=== PATIENT | male | born 1945 | race Caucasian/White ===

== ENCOUNTER → 2020-11-15 04:00 | Outpatient (REF) | payer MEDICARE, MEDICAID, SELFPAY ==
[2020-11-15 08:33] LABS: T3 Uptake 35 % (33-40); T4 Total, Thyroxin 9.9 ug/dL (4.5-12.1); T7 / Free Thyroxin Index 3.5 (1.4-4.5); Thyroid Stim Hormone (TSH) 2.85 uIU/mL (0.358-3.74)
[2020-11-16 09:57] LABS: Anion Gap 7 (5-15); BUN 13 mg/dL (7-18); BUN/Creat Ratio 9.5 RATIO (10-20); Calcium,Total 8.8 mg/dL (8.5-10.1); Chloride 106 mmol/L (98-107); Creatinine, Serum 1.37 mg/dL (0.70-1.30); EST Glomerular Filtration Rate 54 mL/min (>60); Est Glom Filt Rate - Afr Amer 65 mL/min (>60); Glucose 78 mg/dL (74-106); Potassium 4.1 mmol/L (3.5-5.1); Sodium Level 140 mmol/L (136-145)
== END ==
LOC: OLS.SANC 04:00
PROVIDERS: Visit Provider Internal Medicine
DX: E03.9 Hypothyroidism, unspecified (principal)
CPT/HCPCS: 36415; 80048; 84436; 84443; 84479

== ENCOUNTER → 2020-11-26 05:00 | Outpatient (REF) | payer MEDICARE, MEDICAID, SELFPAY ==
[2020-11-26 08:16] LABS: Hematocrit 35.4 % (40-54); Hemoglobin 11.2 g/dL (13.0-16.5); Mean Corp Hgb Conc 31.6 g/dL (32-36); Mean Corpuscular Hgb 31.1 pg (27.0-32.0); Mean Corpuscular Volume 98.3 fL (80-94); Mean Platelet Vol. 10.1 fl (6.2-12.0); Platelet Count 208 K/mm3 (150-450); RBC Distribution Width CV 12.7 % (11.6-14.6); RBC Distribution Width SD 45.9 fl (35.1-43.9); White Blood Count 5.2 K/mm3 (4.4-11.0)
[2020-11-26 08:25] LABS: Anion Gap 3 (5-15); BUN 23 mg/dL (7-18); BUN/Creat Ratio 17.7 RATIO (10-20); Chloride 106 mmol/L (98-107); EST Glomerular Filtration Rate 57 mL/min (>60); Est Glom Filt Rate - Afr Amer 69 mL/min (>60); Glucose 87 mg/dL (74-106); Potassium 4.4 mmol/L (3.5-5.1); Sodium Level 138 mmol/L (136-145)
== END ==
LOC: OLS.SANC 05:00
PROVIDERS: Visit Provider Internal Medicine
DX: I50.9 Heart failure, unspecified (principal); M62.81 Muscle weakness (generalized)
CPT/HCPCS: 36415; 80048; 85027

== ENCOUNTER → 2021-02-16 05:00 | Outpatient (REF) | payer MEDICARE, MEDICAID, SELFPAY ==
[2021-02-16 09:02] LABS: Hematocrit 33.5 % (40-54); Hemoglobin 10.7 g/dL (13.0-16.5); Mean Corp Hgb Conc 31.9 g/dL (32-36); Mean Corpuscular Hgb 30.8 pg (27.0-32.0); Mean Corpuscular Volume 96.5 fL (80-94); Mean Platelet Vol. 10.2 fl (6.2-12.0); Platelet Count 176 K/mm3 (150-450); RBC Distribution Width CV 12.9 % (11.6-14.6); RBC Distribution Width SD 45.7 fl (35.1-43.9); Red Blood Count 3.47 M/mm3 (4.6-6.2); White Blood Count 5.1 K/mm3 (4.4-11.0)
[2021-02-16 09:10] LABS: Anion Gap 7 (5-15); BUN 24 mg/dL (7-18); BUN/Creat Ratio 16.4 RATIO (10-20); Calcium,Total 9.1 mg/dL (8.5-10.1); Chloride 103 mmol/L (98-107); Creatinine, Serum 1.46 mg/dL (0.70-1.30); EST Glomerular Filtration Rate 50 mL/min (>60); Est Glom Filt Rate - Afr Amer 60 mL/min (>60); Glucose 90 mg/dL (74-106); Potassium 4.7 mmol/L (3.5-5.1); Sodium Level 139 mmol/L (136-145)
== END ==
LOC: OLS.SANC 05:00
PROVIDERS: Visit Provider Internal Medicine
DX: I10 Essential (primary) hypertension (principal); E03.9 Hypothyroidism, unspecified
CPT/HCPCS: 36415; 80048; 85027

== ENCOUNTER 2021-04-13 04:00 | Outpatient (REF) | payer MEDICARE, MEDICAID, SELFPAY ==
[2021-04-13 09:50] LABS: Magnesium 1.8 mg/dL (1.6-2.6)
== END 2021-04-13 23:59 | disposition home or self-care (01) ==
LOC: OLS.SANC 04:00
PROVIDERS: Referring Provider Internal Medicine; Visit Provider Internal Medicine
DX: E61.2 Magnesium deficiency (principal)
CPT/HCPCS: 36415; 83735

== ENCOUNTER → 2021-07-29 | Outpatient (REF) | payer MEDICARE, MEDICAID, SELFPAY ==
[2021-07-29 09:42] LABS: Anion Gap 4 (5-15); BUN 24 mg/dL (7-18); BUN/Creat Ratio 15.1 RATIO (10-20); Calcium,Total 8.8 mg/dL (8.5-10.1); Chloride 104 mmol/L (98-107); Creatinine, Serum 1.59 mg/dL (0.70-1.30); EST Glomerular Filtration Rate 45 mL/min (>60); Est Glom Filt Rate - Afr Amer 55 mL/min (>60); Glucose 98 mg/dL (74-106); Potassium 4.5 mmol/L (3.5-5.1); Sodium Level 138 mmol/L (136-145)
== END | disposition home or self-care (01) ==
LOC: OLS.SANC 05:00
PROVIDERS: Visit Provider Internal Medicine
DX: I10 Essential (primary) hypertension (principal); E03.9 Hypothyroidism, unspecified
CPT/HCPCS: 36415; 80048

== ENCOUNTER → 2021-08-12 | Outpatient (REF) | payer MEDICARE, MEDICAID, SELFPAY ==
[2021-08-12 08:58] LABS: Hemoglobin 11.1 g/dL (13.0-16.5); Mean Corp Hgb Conc 32.6 g/dL (32-36); Mean Corpuscular Hgb 31.5 pg (27.0-32.0); Mean Corpuscular Volume 96.6 fL (80-94); Platelet Count 205 K/mm3 (150-450); RBC Distribution Width CV 13.1 % (11.6-14.6); RBC Distribution Width SD 46.3 fl (35.1-43.9); Red Blood Count 3.52 M/mm3 (4.6-6.2); White Blood Count 4.6 K/mm3 (4.4-11.0)
[2021-08-12 09:10] LABS: Anion Gap 6 (5-15); BUN 20 mg/dL (7-18); BUN/Creat Ratio 16.1 RATIO (10-20); Calcium,Total 8.7 mg/dL (8.5-10.1); Chloride 101 mmol/L (98-107); Creatinine, Serum 1.24 mg/dL (0.70-1.30); EST Glomerular Filtration Rate 60 mL/min (>60); Est Glom Filt Rate - Afr Amer 73 mL/min (>60); Glucose 80 mg/dL (74-106); Potassium 4.2 mmol/L (3.5-5.1); Sodium Level 136 mmol/L (136-145)
[2021-08-12 09:15] LABS: Vitamin B12 274 pg/mL (211-911); Vitamin D,25 Hydroxy 13.3 ng/mL
== END | disposition home or self-care (01) ==
LOC: OLS.SANC 05:00
PROVIDERS: Visit Provider Internal Medicine
DX: I10 Essential (primary) hypertension (principal); E03.9 Hypothyroidism, unspecified
CPT/HCPCS: 36415; 80048; 82306; 82607; 85027

== ENCOUNTER → 2021-12-30 | Outpatient (REF) | payer MEDICARE, MEDICAID, SELFPAY ==
[2021-12-30 09:18] LABS: Anion Gap 6 (5-15); BUN 20 mg/dL (7-18); BUN/Creat Ratio 13.1 RATIO (10-20); Calcium,Total 8.9 mg/dL (8.5-10.1); Chloride 99 mmol/L (98-107); Creatinine, Serum 1.53 mg/dL (0.70-1.30); EST Glomerular Filtration Rate 47 mL/min (>60); Est Glom Filt Rate - Afr Amer 57 mL/min (>60); Glucose 88 mg/dL (74-106); Potassium 4.2 mmol/L (3.5-5.1); Sodium Level 137 mmol/L (136-145)
== END ==
LOC: OLS.SANC 05:00
PROVIDERS: Visit Provider Internal Medicine
DX: E78.5 Hyperlipidemia, unspecified (principal); D64.9 Anemia, unspecified
CPT/HCPCS: 36415; 80048

== ENCOUNTER → 2022-01-02 | Outpatient (REF) | payer MEDICARE, MEDICAID, SELFPAY ==
[2022-01-02 09:57] LABS: Vitamin D,25 Hydroxy 72.6 ng/mL
== END ==
LOC: OLS.SANC 04:00
PROVIDERS: Referring Provider Internal Medicine; Visit Provider Internal Medicine
DX: E55.9 Vitamin D deficiency, unspecified (principal); Z79.899 Other long term (current) drug therapy
CPT/HCPCS: 36415; 82306

== ENCOUNTER → 2022-01-03 | Outpatient (REF) | payer MEDICARE, MEDICAID, SELFPAY ==
[2022-01-03 09:57] LABS: Valproic Acid (Depakene) Level 18 ug/mL (50-100)
== END ==
LOC: OLS.SANC 05:00
PROVIDERS: Visit Provider Internal Medicine
DX: Z79.899 Other long term (current) drug therapy (principal)
CPT/HCPCS: 36415; 80164

== ENCOUNTER → 2022-01-18 | Outpatient (REF) | payer MEDICARE, MEDICAID, SELFPAY ==
[2022-01-18 07:54] LABS: Hematocrit 33.2 % (40-54); Hemoglobin 10.6 g/dL (13.0-16.5); Mean Corp Hgb Conc 31.9 g/dL (32-36); Mean Corpuscular Hgb 31.4 pg (27.0-32.0); Mean Corpuscular Volume 98.2 fL (80-94); Mean Platelet Vol. 10.1 fl (6.2-12.0); Platelet Count 183 K/mm3 (150-450); RBC Distribution Width CV 12.6 % (11.6-14.6); RBC Distribution Width SD 45.5 fl (35.1-43.9); Red Blood Count 3.38 M/mm3 (4.6-6.2); White Blood Count 4.3 K/mm3 (4.4-11.0)
[2022-01-18 08:35] LABS: Anion Gap 5 (5-15); BUN 24 mg/dL (7-18); Calcium,Total 9.2 mg/dL (8.5-10.1); Chloride 101 mmol/L (98-107); EST Glomerular Filtration Rate 45 mL/min (>60); Est Glom Filt Rate - Afr Amer 54 mL/min (>60); Glucose 84 mg/dL (74-106); Potassium 4.3 mmol/L (3.5-5.1); Sodium Level 137 mmol/L (136-145)
== END ==
LOC: OLS.SANC 05:00
PROVIDERS: Visit Provider Internal Medicine
DX: I50.9 Heart failure, unspecified (principal); D64.9 Anemia, unspecified
CPT/HCPCS: 36415; 80048; 85027

== ENCOUNTER → 2022-03-14 | Outpatient (REF) | payer MEDICARE, MEDICAID, SELFPAY ==
[2022-03-14 09:38] LABS: Thyroid Stim Hormone (TSH) 0.94 uIU/mL (0.358-3.74)
== END ==
LOC: OLS.SANC 05:00
PROVIDERS: Visit Provider Internal Medicine
DX: E03.9 Hypothyroidism, unspecified (principal)
CPT/HCPCS: 36415; 84443

== ENCOUNTER → 2022-06-13 | Outpatient (REF) | payer MEDICARE, MEDICAID, SELFPAY ==
[2022-06-13 09:25] LABS: AST(SGOT) 18 U/L (15-37); Alanine Aminotransfer ALT/SGPT 17 U/L (16-61); Albumin, Serum 3.1 g/dL (3.2-5.0); Alkaline Phosphatase 40 U/L (45-117); Bilirubin, Direct 0.09 mg/dL (0.00-0.30); Cholesterol 89 mg/dL (200); Globulin 3.1 g/dL (2.2-4.2); High Density Lipoprotein 35 mg/dL; Protein, Total 6.2 g/dL (6.4-8.2); Triglycerides 100 mg/dL; Very Low Density Lipoprotein 20 mg/dL (5-40)
== END ==
LOC: OLS.SANC 05:00
PROVIDERS: Visit Provider Internal Medicine
DX: D64.9 Anemia, unspecified (principal); I11.0 Hypertensive heart disease with heart failure; I50.9 Heart failure, unspecified; E78.5 Hyperlipidemia, unspecified
CPT/HCPCS: 36415; 80061; 80076

== ENCOUNTER → 2022-06-26 | Outpatient (REF) | payer MEDICARE, MEDICAID, SELFPAY ==
[2022-06-26 10:39] LABS: Valproic Acid (Depakene) Level 18 ug/mL (50-100)
== END ==
LOC: OLS.SANC 04:00
PROVIDERS: Referring Provider Internal Medicine; Visit Provider Internal Medicine
DX: Z79.899 Other long term (current) drug therapy (principal)
CPT/HCPCS: 36415; 80164

== ENCOUNTER → 2022-07-03 | Outpatient (REF) | payer MEDICARE, MEDICAID, SELFPAY ==
[2022-07-03 08:37] LABS: Prealbumin 19.9 mg/dL (20.0-40.0)
== END ==
LOC: OLS.SANC 05:00
PROVIDERS: Visit Provider Internal Medicine
DX: D64.9 Anemia, unspecified (principal); I11.0 Hypertensive heart disease with heart failure; I50.9 Heart failure, unspecified; E78.5 Hyperlipidemia, unspecified
CPT/HCPCS: 36415; 84134

== ENCOUNTER → 2022-08-13 | Outpatient (REF) | payer MEDICARE, MEDICAID, SELFPAY | LOC: OLS.SANC 09:20 | PROVIDERS: Visit Provider Internal Medicine | DX: R19.7 Diarrhea, unspecified (principal) | CPT/HCPCS: 87493 ==

== ENCOUNTER → 2022-09-04 | Outpatient (REF) | payer MEDICARE, MEDICAID, SELFPAY ==
[2022-09-04 09:24] LABS: Thyroid Stim Hormone (TSH) 1.04 uIU/mL (0.358-3.74)
== END ==
LOC: OLS.SANC 05:00
PROVIDERS: Visit Provider Internal Medicine
DX: F03.90 Unspecified dementia, unspecified severity, without behavioral disturbance, psychotic disturbance, mood disturbance, and anxiety (principal); I10 Essential (primary) hypertension; E78.5 Hyperlipidemia, unspecified
CPT/HCPCS: 36415; 84443

== ENCOUNTER → 2022-09-25 | Outpatient (REF) | payer MEDICARE, MEDICAID, SELFPAY ==
[2022-09-25 09:19] LABS: Valproic Acid (Depakene) Level 20 ug/mL (50-100)
== END ==
LOC: OLS.SANC 05:00
PROVIDERS: Visit Provider Internal Medicine
DX: I11.0 Hypertensive heart disease with heart failure (principal); I50.9 Heart failure, unspecified; E78.5 Hyperlipidemia, unspecified; Z79.899 Other long term (current) drug therapy
CPT/HCPCS: 36415; 80164

== ENCOUNTER → 2022-10-18 | Outpatient (REF) | payer MEDICARE, MEDICAID, SELFPAY ==
[2022-10-19 09:16] LABS: Bacteria 0 SEEN /hpf (None Seen); Mucous, Urine 0 SEEN /hpf (<or=2+); Red Blood Cells-Urine 0 SEEN /hpf (0-5); Squamous Epithelial Cells - UA 0 SEEN /hpf (0-5); White Blood Cells 0 SEEN /hpf (0-5)
[2022-10-19 10:27] LABS: Color, Urine Yellow (Yellow); Glucose, Dipstick Normal (Normal); Ketone-Dipstick Negative (Negative); Leukocyte Esterase-Dipstick Negative /ul (Negative); Nitrite-Dipstick Negative (Negative); Occult Blood-Urine Negative /ul (Negative); Protein-Dipstick Negative (Negative); Urine Bilirubin Dipstick Negative (Negative); Urine Clarity Clear (Clear); Urine Urobilinogen Normal (Normal)
== END ==
LOC: OLS.SANC 20:38
PROVIDERS: Visit Provider Internal Medicine
DX: R41.82 Altered mental status, unspecified (principal)
CPT/HCPCS: 81001; 87086

== ENCOUNTER → 2022-12-13 | Outpatient (REF) | payer MEDICARE, MEDICAID, SELFPAY ==
[2022-12-13 09:33] LABS: Hematocrit 31.4 % (40-54); Hemoglobin 10.1 g/dL (13.0-16.5); Mean Corp Hgb Conc 32.2 g/dL (32-36); Mean Corpuscular Hgb 32.2 pg (27.0-32.0); Mean Platelet Vol. 11.8 fl (6.2-12.0); Platelet Count 119 K/mm3 (150-450); RBC Distribution Width CV 13.2 % (11.6-14.6); RBC Distribution Width SD 47.9 fl (35.1-43.9); Red Blood Count 3.14 M/mm3 (4.6-6.2); White Blood Count 4.5 K/mm3 (4.4-11.0)
[2022-12-13 09:45] LABS: ALB/GLOB Ratio 0.9 RATIO (0.9-2.4); AST(SGOT) 14 U/L (15-37); Alanine Aminotransfer ALT/SGPT 15 U/L (16-61); Alkaline Phosphatase 45 U/L (45-117); Anion Gap 3 (5-15); BUN 28 mg/dL (7-18); BUN/Creat Ratio 22.2 RATIO (10-20); Calcium,Total 8.4 mg/dL (8.5-10.1); Chloride 110 mmol/L (98-107); Cholesterol 89 mg/dL (200); Creatinine, Serum 1.26 mg/dL (0.70-1.30); EST Glomerular Filtration Rate 59 mL/min (>60); Est Glom Filt Rate - Afr Amer 71 mL/min (>60); Globulin 3.3 g/dL (2.2-4.2); Glucose 79 mg/dL (74-106); High Density Lipoprotein 33 mg/dL; Potassium 3.8 mmol/L (3.5-5.1); Protein, Total 6.3 g/dL (6.4-8.2); Sodium Level 143 mmol/L (136-145); Triglycerides 80 mg/dL; Very Low Density Lipoprotein 16 mg/dL (5-40)
== END ==
LOC: OLS.SANC 06:16
PROVIDERS: Visit Provider Internal Medicine
DX: D64.9 Anemia, unspecified (principal); I10 Essential (primary) hypertension; E78.5 Hyperlipidemia, unspecified
CPT/HCPCS: 36415; 80053; 80061; 85027

== ENCOUNTER → 2023-01-26 | Outpatient (REF) | payer MEDICARE, MEDICAID, SELFPAY ==
[2023-01-26 10:13] LABS: Valproic Acid (Depakene) Level 16 ug/mL (50-100)
== END ==
LOC: OLS.SANC 05:00
PROVIDERS: Visit Provider Internal Medicine
DX: E78.5 Hyperlipidemia, unspecified (principal); Z79.899 Other long term (current) drug therapy
CPT/HCPCS: 36415; 80164

== ENCOUNTER → 2023-02-28 | Outpatient (REF) | payer MEDICARE, MEDICAID, SELFPAY ==
[2023-02-28 08:18] LABS: AST(SGOT) 18 U/L (15-37); Alanine Aminotransfer ALT/SGPT 15 U/L (16-61); Albumin, Serum 3.1 g/dL (3.2-5.0); Alkaline Phosphatase 44 U/L (45-117); Globulin 3.5 g/dL (2.2-4.2); Protein, Total 6.6 g/dL (6.4-8.2); Thyroid Stim Hormone (TSH) 1.49 uIU/mL (0.358-3.74)
== END ==
LOC: OLS.SANC 05:00
PROVIDERS: Visit Provider Internal Medicine
DX: D64.9 Anemia, unspecified (principal); I11.0 Hypertensive heart disease with heart failure; I50.9 Heart failure, unspecified; Z79.899 Other long term (current) drug therapy
CPT/HCPCS: 36415; 80076; 84443

== ENCOUNTER → 2023-03-13 | Outpatient (REF) | payer MEDICARE, MEDICAID, SELFPAY ==
--- OUTSIDE RECORDS SUMMARY | 2023-03-13 04:40 | XMS RPT_ITS | CCD ---
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 Name Role Phone Shravan Solorio Primary Care Provider Unavailable Primary Care Provider [facility], UNKNOWN Referring Unavailable Stephanie Whitlock Primary Care Unavailable Luis Perez Attending Unavailable Stephanie Whitlock Primary Care Provider MIGDALIA LOPEZ Referring Unavailable SHRAVAN CARRANZA Attending Unavailable STEPHANIE WHITLOCK Primary Care Unavailable GABRIELLE PERRY Consulting Unavailable MIGDALIA LOPEZ Attending Unavailable MIGDALIA LOPEZ Admitting Unavailable GABRIELLE PERRY Consulting Unavailable JOANN YUEN Consulting Unavailable JOANN YUEN Consulting Unavailable BETH EDDY Consulting Unavailable FREDI CAMPOSYSSA Consulting Unavailable NIKOLE NIX Attending Unavailable NIKOLE NIX Referring Unavailable STEPHANIE WHITLOCK Referring Unavailable Allergies Allergy Classification Reported Allergen(s) Allergy Type Date of Onset Reaction(s) Facility (3 sources) Acetaminophen / HYDROcodone Drug Allergy 03-08-2019 [facility] Work Phone: (3 sources) Acetaminophen / oxyCODONE Drug Allergy 03-08-2019 [facility] Work Phone: (4 sources) Codeine Drug Allergy 03-08-2019 [facility] Work Phone: (4 sources) hydrOXYzine Drug Allergy 03-08-2019 [facility] Work Phone: (1 source) HYDROcodone Drug Allergy 01-21-2022 [employer] [facility] (1 source) oxyCODONE Drug Allergy 01-21-2022 [employer] [facility] Medications Current Medications Medication Drug Class(es) Dates Sig (Normalized) Sig (Original) acetaminophen 500 mg oral tablet (4 sources) Start: 10-23-2019 acetaminophen (TYLENOL) tablet 500 mg Completed/Discontinued Medications Medication Drug Class(es) Dates Sig (Normalized) Sig (Original) albuterol 0.83 mg/ml inhalant solution (1 source) beta2-Adrenergic Agonist Start: 10-14-2019 End: 10-14-2019 albuterol (PROVENTIL) nebulizer solution 2.5 mg calcium chloride 0.0014 meq/ml / potassium chloride 0.004 meq/ml / sodium chloride 0.103 meq/ml / sodium lactate 0.028 meq/ml injectable solution (1 source) Start: 10-23-2019 End: 10-23-2019 lactated ringers bolus folic acid 1 mg oral tablet (2 sources) End: 10-14-2019 take 1 tablet by mouth once daily folic acid (FOLVITE) 1 MG tablet Take 1 mg by mouth daily 0 10/14/2019 Discontinued (LIST CLEANUP) 4 ml furosemide 10 mg/ml injection (3 sources) Loop Diuretic Start: 10-15-2019 End: 10-16-2019 furosemide (LASIX) injection 80 mg Problems Active Problems Problem Classification Problem Date Documented Da te Episodic/Chronic Acute cerebrovascular disease (7 sources) Embolic stroke; 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] Onset: 01-21-2022 01-24-2022 Chronic Congestive heart failure; nonhypertensive (16 sources) Congestive heart failure; Translations: [Acute on chronic combined systolic and diastolic heart failure] Onset: 10-14-2019 10-14-2019 Chronic Deficiency and other anemia (1 source) Anemia; Translations: [Anemia, unspecified type] Episodic Delirium, dementia, and amnestic and other cognitive disorders (1 source) Dementia; Translations: [Unspecified dementia without behavioral disturbance] Onset: 01-23-2022 01-23-2022 Chronic Essential hypertension (4 sources) Essential hypertension; Translations: [Essential (primary) hypertension] Onset: 11-08-2022 Chronic Nutritional deficiencies (3 sources) Nutritional marasmus; Translations: [Unspecified severe protein-calorie malnutrition] Onset: 10-24-2019 10-24-2019 Chronic Other nervous system disorders (1 source) Metabolic encephalopathy; Translations: [Metabolic encephalopathy] Onset: 10-31-2022 10-31-2022 Chronic Unclassified (2 sources) Hypertension Management Onset: 10-01-2019 Unclassified (2 sources) Lifestyle Management Onset: 10-01-2019 Unclassified (2 sources) Patient Stated Goal Onset: 10-01-2019 Past or Other Problems Problem Classification Problem Date Documented Da te Episodic/Chronic Malaise and fatigue (1 source) Asthenia; Translations: [Other malaise] Onset: 01-23-2022 01-23-2022 Episodic Neoplasms of unspecified nature or uncertain behavior (2 sources) 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; 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] Onset: 03-09-2022 Episodic Nonspecific chest pain (6 sources) Chest pain; Translations: [Chest pain, unspecified] Onset: 10-23-2019 10-23-2019 Episodic Other aftercare (1 source) Polypharmacy ; Translations: [Other sole leveler (current) drug therapy] Onset: 01-23-2022 01-23-2022 Episodic Results Test Name Value Interpretation Reference Range Facil ity Vital Signs Date Time Vital Sign Value Performing Clinician Faci lity 11-08-2022 14:07-0400 Body height 157.5 cm Shravan Carranza MD Work Phone: [facility] 11-08-2022 14:07-0400 Body mass index (BMI) [Ratio] 24.07 kg/m2 Shravan Carranza MD Work Phone: [facility] 11-08-2022 14:07-0400 Body weight 59.69 kg Shravan Carranza MD Work Phone: [facility] 11-08-2022 14:07-0400 Diastolic blood pressure 54 mm[Hg] Shravan Carranza MD Work Phone: [employer] [facility] 11-08-2022 14:07-0400 Heart rate 55 /min Shravan Carranza MD Work Phone: [employer] [facility] 11-08-2022 14:07-0400 Respiratory rate 16 /min Shravan Carranza MD Work Phone: [facility] 11-08-2022 14:07-0400 SaO2% (BldA) [Mass fraction] 95 % Shravan Carranza MD Work Phone: [facility] 11-08-2022 14:07-0400 Systolic blood pressure 96 mm[Hg] Shravan Carranza MD Work Phone: [facility] 10-24-2019 19:35-0400 Body Temperature 97.7 [degF] [facility] [place] 10-24-2019 19:35-0400 BP Diastolic 70 mm[Hg] [facility] , [place] 10-24-2019 19:35-0400 BP Systolic 109 mm[Hg] [facility] , [place] 10-24-2019 19:35-0400 Pulse (Heart Rate) 96 /min [facility], [place] 10-24-2019 19:35-0400 Pulse Oximetry 97 % [facility] , [place] 10-24-2019 19:35-0400 Respiratory Rate 18 /min [facility], [place] 10-23-2019 13:42-0400 BMI (Body Mass Index) 22.52 kg/m2 [facility], [place] 10-23-2019 13:42-0400 Body weight 55.84 kg [facility] , [place] 10-23-2019 07:28-0400 Height 157.5 cm [facility] , [place] 10-22-2019 08:09-0400 Body Temperature 97.3 [degF] [facility] [place] 10-22-2019 08:09-0400 BP Diastolic 65 mm[Hg] [facility] , [place] 10-22-2019 08:09-0400 BP Systolic 118 mm[Hg] [facility] , [place] 10-22-2019 08:09-0400 Pulse (Heart Rate) 77 /min [facility], [place] 10-22-2019 08:09-0400 Pulse Oximetry 96 % [facility] , [place] 10-22-2019 08:09-0400 Respiratory Rate 18 /min [facility] [place] 10-22-2019 04:08-0400 BMI (Body Mass Index) 23.67 kg/m2 Sumit Fontenot [facility] [place] 10-22-2019 04:08-0400 Body weight 58.7 kg Sumit Monroy [facility] [place] 10-17-2019 11:17-0400 Height 157.5 cm Sumit Monroy [facility] [place] Encounters Encounter Date Encounter Type Care Provider Facility Start: 11-08-2022 End: 11-08-2022 ambulatory SHRAVAN CARRANZA [facility] Start: 11-08-2022 End: 11-08-2022 Office outpatient visit 15 minutes Shravan Carranza MD Work Phone: [facility] Cardiology Procedures Date Procedure Procedure Detail Performing Clinician Start: 11-08-2022 Ecg routine ecg w/le ast 12 lds w/i&r Shravan Carranza MD Work Phone: Start: 03-14-2022 Thyrotropin [Units/v olume] in Serum or Plasma Shravan Carranza MD Work Phone: Start: 01-23-2022 Lipid 1996 panel - S roberto or Plasma Shravan Carranza MD Work Phone: Start: 10-24-2019 Assay of troponin quantitative Shravan Solorio Work Phone: Start: 10-24-2019 Basic metabolic pane l calcium total Shravan Solorio Work Phone: Start: 10-23-2019 Assay of troponin quantitative Shravan Solorio Work Phone: Start: 10-23-2019 Assay of troponin quantitative Agustin Marcus Work Phone: Start: 10-23-2019 Assay of troponin quantitative Agustin Oseguerah Work Phone: Start: 10-23-2019 Blood count complete auto&auto difrntl wbc Agustin Oseguerah Work Phone: Start: 10-23-2019 Comprehensive metabo lic panel Agustin Marcus Work Phone: Start: 10-23-2019 Natriuretic peptide Theodore bear Philippe Amrit Work Phone: Start: 10-23-2019 Radiologic exam ches t single view Agustin Paez Amrit Work Phone: Start: 10-23-2019 Ecg routine ecg w/le ast 12 lds w/i&r Agustin Marcus Work Phone: Start: 10-22-2019 Basic metabolic pane l calcium total Mari Goddardk Work Phone: Start: 10-21-2019 Basic metabolic pane l calcium total Mari J Celestino Work Phone: Start: 10-20-2019 COVID-19 Shravan Solorio Work Phone: Start: 10-20-2019 Basic metabolic pane l calcium total Mari J Celestino Work Phone: Start: 10-19-2019 Basic metabolic pane l calcium total Shravan Solorio Work Phone: Start: 10-18-2019 Basic metabolic pane l calcium total Mari Philippe Goddardk Work Phone: Start: 10-17-2019 Assay of magnesium Tracie vandana Philippe Tirado Work Phone: Start: 10-17-2019 Basic metabolic pane l calcium total Shravan Solorio Work Phone: Start: 10-16-2019 Assay of magnesium Ceasar jen Solorio Work Phone: Start: 10-16-2019 BASIC METABOLIC PANE L W/ REFLEX TO MG FOR LOW K Shravan Solorio Work Phone: Start: 10-16-2019 Basic metabolic pane l calcium total Mari Tirado Work Phone: Start: 10-16-2019 Blood count complete auto&auto difrntl wbc Mari Philippe Tirado Work Phone: Start: 10-15-2019 Assay of troponin quantitative Shravan Solorio Work Phone: Start: 10-15-2019 Echo tthrc r-t 2d w/wom-mode compl spec&colr d Shravan Solorio Work Phone: Start: 10-15-2019 Assay of thyroid stimulating hormone tsh Shravan Solorio Work Phone: Start: 10-15-2019 Assay of troponin quantitative Shravan Solorio Work Phone: Start: 10-15-2019 Basic metabolic pane l calcium total Shravan Solorio Work Phone: Start: 10-14-2019 Assay of troponin quantitative Shravan Solorio Work Phone: Start: 10-14-2019 Comprehensive metabo lic panel Shravan Solorio Work Phone: Start: 10-14-2019 Assay of troponin quantitative Sumit Monroy Work Phone: Start: 10-14-2019 Blood count complete auto&auto difrntl wbc Sumit Monroy Work Phone: Start: 10-14-2019 Comprehensive metabo lic panel Sumit Monroy Work Phone: Start: 10-14-2019 Lipid panel Sumit Monroy Work Phone: Start: 10-14-2019 Natriuretic peptide Matthew renato Monroy Work Phone: Start: 10-14-2019 Radiologic exam ches t single view Sumit Monroy Work Phone: Start: 10-14-2019 Ecg routine ecg w/le ast 12 lds w/i&r Sumit Monroy Work Phone: Start: 03-08-2019 Basic metabolic pane l calcium total Venupaulina Cate Work Phone: Start: 03-08-2019 Radiologic exam ches t 2 views Tonny Esposito DO Work Phone: Plan of Treatment Date Care Activity Detail Author Start: 01-23-2027 Lipid panel Lipid Panel [facility] Start: 10-13-2024 Lipid panel Lipid screen [facility] [place] Start: 11-12-2023 End: 11-12-2023 Patient encounter procedure 11/12/2023 2:00 PM EDT Office Visit [facility] Medical [facility] Cardiology [address] [place] [address] Shravan Carranza MD [address] [place] [address] [facility] Start: 03-14-2023 Thyroid stimulating hormone measurement TSH Level [facility] Start: 01-24-2023 Creatinine measurement Creatinine Level [facility] Start: 01-24-2023 Echocardiography Echocardiogram [facility] Start: 01-24-2023 Potassium measurement Potassium Level [facility] Start: 11-24-2022 Influenza vaccination Influenza Vaccine (#1) [facility] Start: 08-26-2021 COVID-19 Vaccine (4 - Booster for Pfizer series) COVID-19 Vaccine (4 - Booster for Pfizer series) [facility] Start: 10-23-2020 Creatinine measurement Creatinine monitoring [facility], [place] Start: 10-23-2020 Potassium monitoring Potassium monitoring [place], [place] Start: 10-21-2020 Creatinine measurement Creatinine monitoring [facility], [place] Start: 10-21-2020 Potassium monitoring Potassium monitoring [place], [place] Start: 11-25-2019 Influenza vaccination Flu vaccine (#1) [place], [place] Start: 11-07-2019 End: 11-07-2019 Office Visit 11/07/2019 Office Visit Cardiology Mari Tirado, CONTACT [employer]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 [facility] [address] [place] [address] [phone] [facility] Start: 10-15-2019 Annual Wellness Visit (AWV) Annual Wellness Visit (AWV) [place], [place] Start: 01-25-2019 Pneumococcal Vaccine: 65+ Years (2 - PCV) Pneumococcal Vaccine: 65+ Years (2 - PCV) [facility] Start: 11-24-2018 Influenza vaccination Flu vaccine (#1) [facility] Work Phone: Start: 08-17-2018 DTaP/Tdap/Td Vaccines (1 - Tdap) DTaP/Tdap/Td Vaccines (1 - Tdap) [facility] Start: 2010 Pneumococcal 65+ years Vaccine (1 of 1 - PPSV23) Pneumococcal 65+ years Vaccine (1 of 1 - PPSV23) [facility] Work Phone: Start: 1995 Colon cancer screen colonoscopy Colon cancer screen [facility] Work Phone: Start: 1995 Screening for malignant neoplasm of colon Colon cancer screen colonoscopy [place], [place] Start: 1995 Shingles Vaccine (1 of 2) Shingles Vaccine (1 of 2) [facility] Work Phone: Start: 1995 Zoster Vaccines (1 of 2) Zoster Vaccines (1 of 2) [facility] Start: 1985 Lipid screen Lipid screen [facility] Work Phone: Start: 1964 DTaP/Tdap/Td vaccine (1 - Tdap) DTaP/Tdap/Td vaccine (1 - Tdap) [place], [place] Start: 1963 Hepatitis C screening Hepatitis C Screening [facility] Start: 1957 Depression Screening Depression Screening [facility] Start: 1956 DTaP/Tdap/Td vaccine (1 - Tdap) DTaP/Tdap/Td vaccine (1 - Tdap) [facility] Work Phone: Start: 1945 AAA screen AAA screen [facility] Work Phone: Start: 1945 Abdominal aortic aneurysm screening AAA screen [place], [place] Start: 1945 Hepatitis C screen Hepatitis C screen [facility] Work Phone: Start: 1945 Hepatitis C screening Hepatitis C screen [place], [place] Start: 1945 Medicare Annual Wellness (AWV) Medicare Annual Wellness (AWV) [facility] Basic metabolic 2000 panel [place], [place] Immunizations Immunization Date Immunization Notes Care Provider Fa cility 07-01-2021 Covid-19, Pfizer Gra y Top, Do Not Dilute, (Age 12 Y+), [place], L Shravan Carranza MD Work Phone: [facility] 01-13-2021 Pfizer SARS-CoV-2 Vaccination Shravan Carranza MD Work Phone: [facility] 12-28-2020 influenza virus vacc ine, unspecified formulation Shravan Carranza MD Work Phone: [facility] 04-21-2020 Pfizer SARS-CoV-2 Vaccination Shravan Carranza MD Work Phone: [facility] 03-31-2020 Pfizer SARS-CoV-2 Vaccination Shravan Carranza MD Work Phone: [facility] Payers Date Payer Category Payer Medicaid [id number] 2019 Medicaid MEDICAID - [facility] [place] [id number] 2019-Present [address] [place] [address] Medicaid [id number] 2019 Medicaid [id number] 2019 Medicaid MEDICAID [facility] DEPT OF JOB [id number] 2019-Present [phone] [address] [place] [address] [id number] 2019 Medicare MEDICARE MEDICAR E PART A AND B [id number] 2019-Present [phone] [address] [address] [place] [address] [id number] 2010 Medicare 2010 Medicare [id number] 1945 Unknown [id number] Unknown Social History Date Type Detail Facility Start: 10-17-2019 End: 11-08-2022 Tobacco smoking status NHIS Former smoker [facility] Start: 10-17-2019 End: 11-08-2022 Tobacco use and exposure Never used 2C2P Start: 10-17-2019 End: 11-08-2022 Alcohol intake Ex-drinker (finding) [facility] Work Phone: Start: 1945 Sex Assigned At Not on file [facility] Work Phone: Start: 10-29-2022 End: 11-08-2022 Exposure to SARS-CoV-2 (event) Not sure [employer] [facility] [place] History of tobacco use Current smoker [facility] History of tobacco use Cigarette Smoker [facility] History of tobacco use Cigar Smoker [facility] Start: 11-08-2022 History of Social function [facility] Start: 11-08-2022 Tobacco use panel [facility] Goals Date Patient Goal Desired Activity /State Clinical Notes 01-23-2022 to 11-08-2022 Shravan Carranza MD - 11/08/2022 2:00 PM EDT Note Date & Type Note Facility 11-08-2022 History of Present illness Narrative [facility] Cardiology [facility] CARDIOLOGY [address] [facility] [address] Dept: [phone] Dept Visit type: Established : 1945 Chief Complaint: Chief Complaint Patient presents with 1 Year Follow-up Congestive Heart Failure History of Present Illness: James Jones is a 77 y.o. male returns in follow-up concerning his history of heart failure with preserved systolic function. He is living in a facility. He has a medical payment poster with him. She states he has not been complaining of chest pain or shortness of breath. He is pleasantly confused. Past Medical History: History reviewed. No pertinent past medical history. Past Surgical History History reviewed. No pertinent surgical history. Family History No family history on file. Social History Social History Tobacco Use Smoking status: Former Types: Cigarettes, Cigars Smokeless tobacco: Never Substance Use Topics Alcohol use: Not Currently Drug use: Not Currently Allergies: Allergies Allergen Reactions Codeine Hydrocodone Hydroxyzine Oxycodone Medications: Current Outpatient Medications: acetaminophen (Tylenol) 325 MG tablet, Take 650 mg by mouth 3 times daily as needed for mild pain (1-3). For gen discomfort, Disp: , Rfl: amLODIPine (Norvasc) 5 MG tablet, Take 5 mg by mouth in the morning., Disp: , Rfl: aspirin 81 MG chewable tablet, Chew 1 tablet (81 mg) in the morning. Do not start before January 25, 2022., Disp: 30 tablet, Rfl: 11 atorvastatin (Lipitor) 40 MG tablet, Take 1 tablet (40 mg) by mouth in the morning. Do not start before January 25, 2022., Disp: 30 tablet, Rfl: 11 carvedilol (Coreg) 25 MG tablet, Take by mouth 2 times daily (with meals)., Disp: , Rfl: cetirizine (ZyrTEC) 10 MG tablet, Take 10 mg by mouth daily., Disp: , Rfl: clonazePAM (KlonoPIN) 1 MG tablet, Take by mouth Nightly., Disp: , Rfl: cyanocobalamin (Vitamin B-12) 1000 MCG tablet, Take 1 tablet (1,000 mcg) by mouth in the morning. Do not start before January 25, 2022., Disp: 30 tablet, Rfl: 11 divalproex (Depakote) 125 MG EC tablet, Take 125 mg by mouth Nightly. Do not crush, chew, or split., Disp: , Rfl: dronabinol (Marinol) 5 MG capsule, Take 5 mg by mouth daily., Disp: , Rfl: escitalopram (Lexapro) 10 MG tablet, Take 10 mg by mouth in the morning., Disp: , Rfl: gabapentin (Neurontin) 100 MG capsule, Take 2 capsules (200 mg) by mouth in the morning and 2 capsules (200 mg) at noon and 2 capsules (200 mg) before bedtime. (Patient taking differently: Take 300 mg by mouth 3 times daily.), Disp: 180 capsule, Rfl: 11 hydrALAZINE (Apresoline) 50 MG tablet, Take 50 mg by mouth in the morning and 50 mg at noon and 50 mg before bedtime., Disp: , Rfl: melatonin 3 MG tablet, Take 1 tablet by mouth Nightly., Disp: , Rfl: mirtazapine (Remeron) 15 MG tablet, Take 7.5 mg by mouth Nightly., Disp: , Rfl: Multiple Vitamin (multivitamin) tablet, Take 1 tablet by mouth daily., Disp: , Rfl: saccharomyces boulardii (Florastor) 250 MG capsule, Take 250 mg by mouth 2 times daily., Disp: , Rfl: levothyroxine (Synthroid, Levoxyl) 50 MCG tablet, Take 1 tablet by mouth daily., Disp: , Rfl: Review of Systems: Review of Systems Constitutional: Negative for activity change, chills, diaphoresis, fatigue and fever. HENT: Negative for nosebleeds and trouble swallowing. Eyes: Negative for discharge and visual disturbance. Respiratory: Negative for apnea, cough, chest tightness, shortness of breath and wheezing. Cardiovascular: Negative for chest pain, palpitations and leg swelling. Gastrointestinal: Negative for abdominal distention, abdominal pain, blood in stool, diarrhea, nausea and vomiting. Endocrine: Negative for cold intolerance and heat intolerance. Genitourinary: Negative for hematuria. Musculoskeletal: Negative for gait problem and myalgias. Skin: Negative for color change and rash. Neurological: Negative for dizziness, seizures, syncope, facial asymmetry, speech difficulty, weakness, light-headedness, numbness and headaches. Hematological: Does not bruise/bleed easily. Psychiatric/Behavioral: Negative for dysphoric mood. Physical Examination: Vitals: Vitals: 11/08/22 1407 BP: 96/54 BP Location: Left arm Patient Position: Sitting BP Cuff Size: Adult Pulse: 55 Resp: 16 SpO2: 95% Weight: 131 lb 9.6 oz (59.7 kg) Height: 5' 2 (1.575 m) Body mass index is 24.07 kg/m . Physical Exam Constitutional: Appearance: Normal appearance. HENT: Head: Normocephalic and atraumatic. Nose: Nose normal. Eyes: General: No scleral icterus. Extraocular Movements: Extraocular movements intact. Pupils: Pupils are equal, round, and reactive to light. Neck: Thyroid: No thyromegaly. Vascular: No carotid bruit or JVD. Cardiovascular: Rate and Rhythm: Normal rate and regular rhythm. Pulses: Normal pulses. Heart sounds: No murmur heard. No gallop. Pulmonary: Effort: Pulmonary effort is normal. Breath sounds: No wheezing, rhonchi or rales. Chest: Chest wall: No tenderness. Abdominal: General: Abdomen is flat. There is no distension. Palpations: Abdomen is soft. There is no hepatomegaly, splenomegaly or mass. Musculoskeletal: General: No swelling or tenderness. Normal range of motion. Cervical back: No tenderness. Skin: General: Skin is warm. Neurological: General: No focal deficit present. Mental Status: He is alert. He is confused. Cranial Nerves: Cranial nerves 2-12 are intact. No cranial nerve deficit. Psychiatric: Attention and Perception: Attention normal. Mood and Affect: Mood normal. Speech: Speech normal. Behavior: Behavior normal. Laboratory Tests: Lab Results Component Value Date WBC 9.4 01/24/2022 HGB 12.1 (L) 01/24/2022 HCT 36.7 (L) 01/24/2022 MCV 97.6 01/24/2022 PLT 192 01/24/2022 Lab Results Component Value Date GLUCOSE 95 01/24/2022 CALCIUM 9.3 01/24/2022 NA 136 01/24/2022 K 3.5 01/24/2022 CO2 24 01/24/2022 CL 101 01/24/2022 BUN 42 (H) 01/24/2022 CREATININE 1.33 (H) 01/24/2022 @LASTCMP@ Lab Results Component Value Date CHOL 182 01/23/2022 CHOL 131 10/14/2019 Lab Results Component Value Date TRIG 174 (H) 01/23/2022 TRIG 128 10/14/2019 Lab Results Component Value Date HDL 27 (L) 01/23/2022 HDL 40 10/14/2019 Lab Results Component Value Date LDLCALC 120 (H) 01/23/2022 NT PRO BNP Date Value Ref Range Status 01/20/2022 578 (H) 0 - 450 pg/mL Final Assessment and Plan: 1. Chronic heart failure with preserved ejection fraction (CMS/HCC) (HCC) 2. Essential (primary) hypertension 1. Heart failure with preserved systolic function: This has been stable. We will continue medical therapy as is. 2. Hypertension: Controlled. 3. Chronic dementia. documented in this encounter [facility] 05-19-2022 Note ADDENDUM #1 This procedure was performed under ULTRASOUND-GUIDANCE. The corrected dictation is as follows: EXAMINATION: Ultrasound-guided left parotid mass biopsy. CLINICAL INFORMATION: Solid left parotid mass. Prior to the procedure, the details of the examination were explained to the patient. He understands the risks, alternative, and benefits and wishes to proceed. Informed written consent is obtained and placed in the chart. ANESTHESIA: Local anesthesia is maintained with Lidocaine. PROCEDURE: The patient was placed supine on the ultrasound cart. A limited scan through the left parotid gland demonstrates a 1.4 cm solid nodule. A site was picked for percutaneous biopsy. This area was prepped and draped in the usual fashion. Under direct ultrasound-guidance, a 19 gauge coaxial needle was advanced without difficulty into the lesion. Subsequently, several 20 gauge core samples were acquired. Post-procedure ultrasound demonstrates no significant bleeding in this region. There were no immediate complications. The patient tolerated the procedure without difficulty and was transferred to the recovery room in stable condition. Patient Name: JAMES JONES Exam Date/Time: 03/09/2022 11:17 Procedure: US GUIDED THYROID NEEDLE CORE BIOPSY Ordering Provider: NIX MARK Reason For Exam: EXAMINATION: CT-guided left parotid mass biopsy. CLINICAL INFORMATION: Solid left parietal mass. Prior to the procedure, the details of the examination were explained to the patient. He understands the risks, alternative, and benefits and wishes to proceed. Informed written consent is obtained and placed in the chart. ANESTHESIA: Local anesthesia is maintained with Lidocaine. PROCEDURE: The patient was placed supine on the ultrasound cart. A limited scan through the left parotid gland demonstrates a 1.4 cm solid nodule. A site was picked for percutaneous biopsy. This area was prepped and draped in the usual fashion. Under CT-guidance, a 19 gauge coaxial needle was advanced without difficulty into the lesion. Subsequently, several 20 gauge core samples were acquired. Post-procedure ultrasound demonstrates no significant bleeding in this region. There were no immediate complications. The patient tolerated the procedure without difficulty and was transferred to the recovery room in stable condition. IMPRESSION: 1. Biopsy of the left parotid gland nodule as detailed above. Report Dictated on Electronically Signed By: Gabo Magallanes Electronically Signed Date/Time: 03/09/2022 2:07 PM [facility] 03-09-2022 Note Ultrasound Procedure Room: James is here as a walk in outpatient for a Left Paratid Biopsy . He verbalizes understanding of the procedural instructions. Dr. Magallanes has spoken to him. History, allergies, medications and lab results reviewed. Informed consent signed. Prepped and draped in sterile fashion. Time out was performed. He is on a monitor. Tolerated the procedure well. He is in no distress. Band aid place over left face puncture site. No bleeding. No hematoma. He is in no distress. Home going instructions given. Discharge to home. 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 Patient was made an assist- preferences noted-patient needs fed Please document PO intakes-diet and ons- consistently in the flowsheet to better assess intake adequacy. Suggest mvi daily for skin integrity Monitor labs, status, intakes,wts to reassess. Follow up at least weekly Malnutrition Assessment: Malnutrition Status: At risk for malnutrition (Comment) (new cva , dementias - confused - needs fed) Context: Acute Illness Findings of the 6 clinical characteristics of malnutrition: Energy Intake: Mild decrease in energy intake (Comment) Weight Loss: Unable to assess Body Fat Loss: No significant body fat loss Muscle Mass Loss: Unable to assess Fluid Accumulation: No significant fluid accumulation Sample Hand Strength: Not Performed Nutrition Assessment: PER MD-Subjective: Admit Date: 01/21/2022 PCP: Stephanie Whitlock Room#: B1147/B1-062 B Interval History: Presents to [facility] ED on 01/20/22 with AMS. Hx provided to ED provider per daughter. C/o strange behavior and found naked on his bed at SNF. Examination consistent with no focal neurological deficits. Baseline waxes and wanes. Hx of Dementia in EMR. CTH NAP. EKG NSR. UA showed 75 leuks, neg nit, 3-5 WBC and neg bacteria. LA wnl. Trop neg x 1. Ucx pending. Started on CTX. Neurology consulted. Discussed with neurology Dr. Sterling this am who stated that patient likely with left frontal CVA on CTH. Ordered repeat CTH with IV contrast and MRI brain. Will complete 3 days of CTX on 01/23. Consulted Geriatrics. Assessment 1. Acute metabolic encephalopathy kalen due to worsening dementia +/- CVA 2. HFpEF 3. HTN 4. CKD stage III 5. Hypothyroidism 6. Insomnia BPH 7. DementiaHe had a ct and cta done which showed a lef frontal cva. Neuro saw him as well. 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 so anus is pending Estimated Daily Nutrient Needs: Energy (kcal): 20- 25 or 5869-8277 Weight Used for Energy Requirements: Current Protein (g): Weight Used for Protein Requirements: [place] Fluid (ml/day): Method Used for Fluid Requirements: 1 ml/kcal Nutrition Related Findings: 01/23 green stool,trigly 175 inc, lsl 120 inc, hdl 27 low, alb 4, gfr 55.4- needs assist - confused - on lipitor, plavis Wound Type: Multiple (adrian 18 excoriations) Current Nutrition Therapies: Adult diet Regular Anthropometric Measures: Height: 157.5 cm Current Body Wt: 69.9 kg (154.4 lb) BMI: Nutrition Diagnosis: Increased nutrient needs related to cognitive or neurological impairment, other (comment) (new cva - needs fed) as evidenced by intake 0-25%, wounds Altered nutrition-related lab values related to cardiac dysfunction (trigly , hdl, ldl) as evidenced by lab values Nutrition Interventions: Nutrition Education/Counseling: Education not indicated Coordination of Nutrition Care: Continue to monitor while inpatient, Feeding Assistance/Environment Change Plan of Care discussed with: pt,daughter - preferences were noted Goals: Goals: PO intake 50% or greater Nutrition Monitoring and Evaluation: Behavioral-Environmental Outcomes: None Identified Physical Signs/Symptoms Outcomes: Biochemical Data, Chewing or Swallowing, GI Status, Fluid Status or Edema, Hemodynamic Status, Meal Time Behavior, Nutrition Focused Physical Findings, Skin, Weight Discharge Planning: Continue current diet, Continue Oral Nutrition Supplement Coco Kaufman RD Contact: *[phone] [facility] 01-24-2022 Note Hospitalist Discharg e Summary James Jones : 1945 Admit date: 01/21/2022 Discharge date: 01/24/2022 Admitting Physician: Migdalia Lopez DO Primary Care Physician: Stephanie Whitlock Visit Status: admitted Code Status: No Order Discharge Diagnoses: Acute left frontal cva Left parotid mass Dementia Procedures:none Hospital Course: pt was admitted with AMS. He was worked up for infection and nothing was found. He had a ct and cta done which showed a lef frontal cva. Neuro saw him as well. 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 [facility] Consults: IP CONSULT TO NEUROLOGY IP CONSULT TO CASE MANAGEMENT IP CONSULT TO GERIATRICS Discharge Instructions: Diet: Adult diet Regular Activity: as tolerated Recommended Outpatient Tests: Disposition: Patient discharged in stable condition to SNF . Greater than 30 minutes spent discharging the patient and coming up with patient discharge plan. Vitals: BP 151/82 Pulse 76 Temp 36.5 ?C (97.7 ?F) (Temporal) Resp 17 Ht 1.575 m Wt 69.9 kg SpO2 91% BMI 28.17 kg/m? Pulse Ox: SpO2 Av.7 % Min: 91 % Max: 95 % Supplemental O2: General appearance: No apparent distress, appears stated age and cooperative with exam HEENT: Normal cephalic, atraumatic without obvious deformity. Pupils equal, round, and reactive to light. Extra ocular muscles intact. Conjunctivae/corneas clear. Neck: Supple, with full range of motion. No jugular venous distention. Trachea midline. No lymphadenopathy. Respiratory: Normal respiratory effort. Clear to auscultation, bilaterally without Rales/Wheezes/Rhonchi. Cardiovascular: Regular rate and rhythm with normal S1/S2 without murmurs, rubs or gallops. Abdomen: Soft, non-tender, non-distended with normal bowel sounds. No rebound or guarding. Musculoskeletal: No clubbing, cyanosis or edema bilaterally. Full range of motion without deformity, +2 peripheral pulses in all extremities. Skin: Skin color, texture, turgor normal. No rashes or lesions. Neurologic: Neurovascularly intact without any focal sensory/motor deficits. Cranial nerves: II-XII intact, grossly non-focal. Discharge Medications: @DISCHARGEAVSMEDLIST@ Recommended Follow-up: No follow-up provider specified. @[email or web address]@ Complexity of Follow up: [] Moderate Complexity: follow up within 7-14 calendar days (71754) [x] Severe Complexity: follow up within 7 calendar days (78792) Follow up Testing, Pending results or Referrals at Transitional Care Visit: [x] yes [] no Instructions to MA: Please call patient on day after discharge (must document patient contacted within 2 business days of discharge). Follow up questions for MA: 1. Did you get medications filled and taking them as instructed from discharge? 2. Are you following your discharge instructions from your hospital stay? 3. Please confirm patient is scheduled for a follow up appointment within the above time frame. Signed: MIGDALIA LOPEZ DO Division of Hospitalist Medicine Inpatient Medical Services/[facility] 01/24/2022, 1:42 PM Discharge Summary James Jones : 1945 ADMIT DATE: 01/21/2022 DISCHARGE DATE: 01/24/2022 PRIMARY CARE PHYSICIAN: Stephanie Whitlock VISIT STATUS: admit CODE STATUS: No Order DISCHARGE DIAGNOSES: Principal Problem: Cerebrovascular accident (CVA) due to embolism of other cerebral artery (HCC) Active Problems: Acute metabolic encephalopathy Polypharmacy Dementia (HCC) Debility HOSPITAL COURSE: See above SIGNIFICANT DIAGNOSTIC STUDIES: CT head CTA head and neck MRI brain CONSULTANTS: neuro RECOMMENDED NEXT STEPS: Therapy at snf DISCHARGE MEDICATIONS: Your medication list START taking these medications Instructions Last Dose Given Next Dose Due aspirin 81 MG chewable tablet Start taking on: January 25, 2022 Chew 1 tablet (81 mg) in the morning. Do not start before January 25, 2022. atorvastatin 40 MG tablet Commonly known as: Lipitor Start taking on: January 25, 2022 Take 1 tablet (40 mg) by mouth in the morning. Do not start before January 25, 2022. cyanocobalamin 1000 MCG tablet Commonly known as: Vitamin B-12 Start taking on: January 25, 2022 Take 1 tablet (1,000 mcg) by mouth in the morning. Do not start before January 25, 2022. CHANGE how you take these medications Instructions Last Dose Given Next Dose Due gabapentin 100 MG capsule Commonly known as: Neurontin What changed: medication strength how much to take Take 2 capsules (200 mg) by mouth in the morning and 2 capsules (200 mg) at noon and 2 capsules (200 mg) before bedtime. CONTINUE taking these medications Instructions Last Dose Given Next Dose Due acetaminophen 325 MG tablet Commonly known as: Tylenol amLODIPine 5 MG tablet Commonly known as: Norvasc carvedilol 25 MG ta (more content not included)... [facility] 01-24-2022 Note Patient from [facility]. Return to facility referral placed via [facility]port. SW to follow for any skilled needs vs LTC return to facility. Return to facility placed via [facility]port . Minda Marcano LCSW [facility] 01-24-2022 Note PROGRESS NOTE. [facility] Patient Name:James Jones Patient : 1945 Acct: [id number] Date of Admission: 01/21/2022 Room/Bed: B1147/[facility] B PCP: Stephanie Whitlock Patient location Telemetry Remains in the hospital for completion of stroke riskassessment, Subjective: New Complain: No new complains Sedation:No Diet/TF:regular Barrett: No VTE prophylaxis: YES Lovenox Antithrombotic therapy in first 24 hrs: Pt not seen by Neurology in first 24 hours, Stroke missed by radiology on first CTH, Antithrombotics started when seen by Neurology Statin therapy for stroke stroke patients: High intensity Anticoagulation on AF patients: N/A no history of AF Activity: Bed rest Disposition: Unclear Current Hospital Medications: Current Facility-Administered Medications: acetaminophen (Tylenol) tablet 650 mg, 650 mg, Oral, q8h PRN, Luis Perez MD amLODIPine (Norvasc) tablet 5 mg, 5 mg, Oral, Daily, Luis Perez MD, 5 mg at 01/24/22 08 aspirin chewable tablet 81 mg, 81 mg, Oral, Daily, Pedro Sterling MD, 81 mg at 01/24/22814 atorvastatin (Lipitor) tablet 40 mg, 40 mg, Oral, Daily, Pedro Sterling MD, 40 mg at 01/24/22814 carvedilol (Coreg) tablet 25 mg, 25 mg, Oral, BID WC, Luis Perez MD, 25 mg at 01/24/22814 clonazePAM (KlonoPIN) tablet 0.75 mg, 0.75 mg, Oral, Nightly, Eddy Campos MD, 0.75 mg at 01/23/222112 divalproex (Depakote) EC tablet 125 mg, 125 mg, Oral, Nightly, Luis Perez MD, 125 mg at 01/23/222113 enoxaparin (Lovenox) syringe 40 mg, 40 mg, SubCUTAneous, Daily, Anel Graves MD, 40 mg at 01/23/222112 escitalopram (Lexapro) tablet 10 mg, 10 mg, Oral, Daily, Luis Perez MD, 10 mg at 01/24/22814 gabapentin (Neurontin) capsule 200 mg, 200 mg, Oral, TID, Eddy Campos MD, 200 mg at 01/24/22814 hydrALAZINE (Apresoline) tablet 50 mg, 50 mg, Oral, TID, Luis Perez MD, 50 mg at 01/24/22814 ipratropium-albuterol (Duo-Neb) 0.5-2.5 mg/3 mL nebulizer solution 3 mL, 3 mL, Nebulization, q4h PRN, Migdalia Lopez DO melatonin tablet 3 mg, 3 mg, Oral, Nightly PRN, Eddy Campos MD perflutren lipid microspheres (Definity) injection 1.65 mg, 1.65 mg, IntraVENous, Once PRN, Pedro Sterling MD Continuous Infusions: Allergies: Codeine, Hydrocodone, Hydroxyzine, and Oxycodone ROS: Unable to obtain complete ROSsecondary to N/A Review of Systems Objective: Telemetry: Arrhythmia:N/A Physical Examination: Patient Vitals for the past 8 hrs: BP Temp src Pulse Resp SpO2 01/24/22 0700 151/82 Temporal 76 17 91 % I/O last 3 completed shifts: In: - Out: 600 [Urine:600] General Physical Examination: General: Sitting comfortably in the bed HEENT:Normocephalic, atraumaticl CV: S1+S2, RRR, no MRG. Pulm:CTA b/l, unlabored Abdomen: Soft NT/ND. BS + Skin: Intact without ulcers, breakdowns or discoloration Extremities: normal with no edema or cyanosis Orthopedic limitation; N/A Pulses: Intact peripherally Carotid auscultation :No bruits Neurological Examination: Higher Functions: Mental Status Exam: Level of Alertness:Awake Orientation: Oriented to self only Memory: 0 out of 3 word recall Fund of Knowledge: Normal Language: No aphasia or dysarthria Dysarthria not present Cranial Nerves: -II Visual acuity: normal -II Visual lowry: normal -III Pupils equal, round, reactive to light -III-IV- Extraocular Movements: intact -Nystagmus not present -Saccades and pursuits normal -V Facial sensation: intact -VII Facial strength: intact -VIII Hearing: intact -IX-X- -X Palate:intact -XI Shoulder shrug: intact normal -XII Tongue movement: normal Motor Examination: Tone after evaluation of 4 limbs, the following findings applied: Normal . . -Bulk: normal -Muscle Stretchafter evaluation of all limbs, and axial musculature the following findings applied: Drift: Pronator drift present on the right Sensory Intact to light touch, pain / temperature, proprioception, Coordination: Arms Normal finger to nose Legs Intact heel knee de los santos testing Tremors not present NIHSS: 1 ANCILLARY Last 24hrs Recent Results (from the past 24 hour(s)) Hemoglobin A1c Collection Time: 01/23/22 10:34 AM Result Value Ref Range HEMOGLOBIN A1C 5.8 (H) <5.7 % ESTIMATED AVERAGE GLUCOSE 120 mg/dL CBC Collection Time: 01/24/22 3:12 AM Result Value Ref Range Auto WBC 9.4 3.6 - 10.7 10*3/uL RBC 3.76 (L) 4.40 - 5.90 10*6/uL Hemoglobin 12.1 (L) 13.0 - 18.0 g/dL Hematocrit 36.7 (L) 40.0 - 52.0 % MCV 97.6 80.0 - 98.0 fL MCH 32.2 26.0 - 34.0 pg MCHC 33.0 32.0 - 36.0 % RDW 12.9 11.5 - 14.5 % Platelets 192 140 - 440 10*3/uL MPV 8.5 7.4 - 12.4 fL Comprehensive metabolic panel Collection Time: 01/24/22 3:12 AM Result Value Ref Range SODIUM 136 135 - 145 mmol/L POTASSIUM 3.5 3.5 - 5.1 mmol/L CHLORIDE 101 98 - 107 mmol/L CARBON DIOXIDE 24 22 (more content not included)... [facility] 01-23-2022 Note [facility] Respiratory Care Department Progress Note As part of the Respiratory Assessment Program (RAP), the following Respiratory Therapist evaluation has been completed, including a chart review and clinical/physical assessment. Respiratory Therapist RAP Evaluation Guideline Points 0 1 2 3 4 Points Strongly Consider History Factor No Pulmonary conditions Stable Pulmonary condition(s) Surgery or Intervention that may impact Pulmonary system (at risk) Surgery or Intervention that is impacting Pulmonary system Active Exacerbation of Pulmonary Condition 0 Respiratory Pattern Regular, RR= 12-18 LAZO or Increased RR= 19-24 Irregular, or RR= 25-30 SOB, talk in short sentences, or RR= 31-35 Severe SOB, accessory muscle use, one word answers, or RR>35 0 Aerosol Med(s), High Flow O2 Breath Sounds Clear Diminished in 1 lobe Diminished in ? 2 lobes Adventitious breath sounds Coarse crackles, Wheezes, or Diminished in >2 lobes 2 Aerosol Med(s), Bronchial Hygiene, Hyperinflation Cough & Sputum Strong cough, no secretion retention or production Weak cough, no secretion retention or production Weak cough, w/ production (less often than Q2hr), or secretion retention No cough, w/ secretion retention or production (less often than Q2hr) Significant secretion production (more often than Q2hr) or mucus plug 0 Aerosol Med(s), Bronchial Hygiene, Hyperinflation Level of Activity Ambulatory Ambulatory with Assist Up in chair or edge of bed (dangle) Non-ambulatory, bedridden with active ROM Completely paralyzed or without active ROM 0 Triage 5 0-2 Triage 4 3-5 Triage 3 6-10 Triage 2 11-14 Triage 1 ?15 Total 2 Triage Score = 5 TRIAGE SCORING - SUGGESTED FREQUENCIES Aerosol Therapy Bronchial Hygiene Hyperinflation Triage Score Q4h & PRN 1 Q4hWA (QID) & PRN 2 TID & PRN 3 BID & PRN 4 PRN 5 Therapy(s) Indicated Yes/No Aerosol Medication n Hyperinflation n Bronchial Hygiene n High Flow Oxygen n RT to enter/modify frequency of treatment order in EMR/EHR to match this RAP evaluation. Based on this RAP evaluation the following therapy is being initiated: Duoneb At the following frequency: PRN Comments: Thank you for involving Respiratory in the care of this patient, [facility] 01-23-2022 Note Hospitalist Progress Note 01/23/[phone]: Please page me ([phone]) for patient care issues. [phone]: Please page IMS night Hospitalist for any issues. Subjective: Admit Date: 01/21/2022 PCP: Stephanie Whitlock Room#: B1-147/B1-147 B Interval History: pt is much more with it today than when I saw him on Sunday, I did speak to his daughter dilia and she states he is not at his baseline yet I updated her on the the new cva etc. Adult diet Regular @ZNIM0CLOASE@ 24HR INTAKE/OUTPUT: Intake/Output Summary (Last 24 hours) at 01/23/20222034 Last data filed at 01/23/2022 1800 Gross per 24 hour Intake -- Output 600 ml Net -600 ml Past Medical History: LABS: CBC: Recent Labs 01/21/22 0654 01/22/2230801/23/22309 WBC 6.7 9.9 10.5 RBC 3.58* 3.83* 3.77* HGB 11.4* 12.3* 12.1* HCT 34.5* 36.5* 36.2* MCV 96.4 95.4 95.9 RDW 12.7 12.7 12.8 PLT 187 185 183 BMP: Recent Labs 01/21/22 0654 01/22/2230801/23/22309 NA 137 138 141 K 4.7 4.2 3.8 CL 100 99 102 CO2 29 27 24 BUN 28* 26* 34* CREATININE 1.47* 1.26* 1.23 GLUCOSE 90 114* 96 CALCIUM 9.5 9.1 9.2 ANIONGAP 8 12 15* LIVER PROFILE: Recent Labs 01/21/22 0654 01/22/2230801/23/22309 AST 46 90* 111* ALT 10 16 20 BILITOT 0.4 0.5 0.6 ALKPHOS 35* 39 28* PROT 7.6 7.6 7.7 PT/INR: No results for input(s): PROTIME, INR in the last 72 hours. CARDIAC ENZYMES: No results for input(s): TROPONINI in the last 72 hours. Procalcitonin: No results found for: PROCAL COVID-19 PCR: No results for input(s): COVID19 in the last 72 hours. Objective: Vitals: BP 153/90 (BP Location: Left arm, Patient Position: Lying) Pulse 86 Temp 36.5 ?C (97.7 ?F) (Temporal) Resp 16 SpO2 95% Pulse Ox: SpO2 Av.5 % Min: 94 % Max: 95 % Supplemental O2: General appearance: No apparent distress, appears stated age and cooperative with exam HEENT: Normal cephalic, atraumatic without obvious deformity. Pupils equal, round, and reactive to light. Extra ocular muscles intact. Conjunctivae/corneas clear. Neck: Supple, with full range of motion. No jugular venous distention. Trachea midline. No lymphadenopathy. Respiratory: Normal respiratory effort. Clear to auscultation, bilaterally without Rales/Wheezes/Rhonchi. Cardiovascular: Regular rate and rhythm with normal S1/S2 without murmurs, rubs or gallops. Abdomen: Soft, non-tender, non-distended with normal bowel sounds. No rebound or guarding. Musculoskeletal: No clubbing, cyanosis or edema bilaterally. Full range of motion without deformity, +2 peripheral pulses in all extremities. Skin: Skin color, texture, turgor normal. No rashes or lesions. Neurologic: Neurovascularly intact without any focal sensory/motor deficits. Cranial nerves: II-XII intact, grossly non-focal. Medications: amLODIPine, 5 mg, Oral, Daily aspirin, 81 mg, Oral, Daily atorvastatin, 40 mg, Oral, Daily carvedilol, 25 mg, Oral, BID WC cefTRIAXone, 1,000 mg, IntraVENous, q24h clonazePAM, 0.75 mg, Oral, Nightly divalproex, 125 mg, Oral, Nightly enoxaparin, 40 mg, SubCUTAneous, Daily escitalopram, 10 mg, Oral, Daily gabapentin, 200 mg, Oral, TID hydrALAZINE, 50 mg, Oral, TID ipratropium-albuterol, 3 mL, Nebulization, q4h Assessment Acute metabolic encephalopathy due to new L frontal CVA neuro started him on asa and lipitor and ordered echo and holter as well as mri daughter is aware of plan HFpEF HTN CKD stage III Hypothyroidism Insomnia BPH Dementia Plan -am labs, replace lytes prn -increase activity -DVT prophylaxis: [] Lovenox [] Heparin [] SCDs [x] Encourage ambulation [] Already on Anticoagulation Advance Directive: No Order Discharge planning: KIZZY LOPEZ DO Division of Hospitalist Medicine Inpatient Medical Services/[facility] PAGER: [phone] [facility] documented in this encounter [facility] Work Phone: Evaluation note* Diagnosis Chronic heart failure with preserved ejection fraction (CMS/HCC) (HCC)- Primary Essential (primary) hypertension Unspecified essential hypertension [facility] Discharge instructions* Attachments The following attachments cannot be sent through Care Everywhere. * HTN (Hypertension): Diuretics: General Info (Scottish) * Kidney Disease: High Blood Pressure (Scottish) [facility] Phone: Discharge Instructions * Discharge Instr - Lab* Olivia Reyes RN - 10/17/2019 12:40 PM EDT Your physician has ordered skilled home care services for you. Your home care will be provided by: [facility] [phone] * Discharge Instr - MONA* Brandyn Craft, FOUR H AGENT - 10/22/2019 11:09 AM EDT Continuity of Care Form Patient Name: James Jones : 1945 Admit date: 10/14/2019 Discharge date: 10-22-2019 Code Status Order: DNR-CCA Advance Directives: Advance Care Flowsheet Documentation Date/Time Healthcare Directive Type of Healthcare Directive Copy in Chart Healthcare Agent Appointed Healthcare Agent's Name Healthcare Agent's Phone Number 10/14/19 1433 No, patient does not have an advance directive for healthcare treatment -- -- -- -- -- Admitting Physician: Shravan Solorio MD PCP: SHRAVAN SOLORIO MD Discharging Nurse: JOSH Castillo Discharging Hospital Unit/Room#: 594/4262 Discharging Unit Emergency Contact: Extended Emergency Contact Information Primary Emergency Contact: Dilia Jones [place] Relation: Child Past Surgical History: Past Surgical History: Procedure Laterality Date EYE SURGERY FRACTURE SURGERY JOINT REPLACEMENT Immunization History: There is no immunization history on file for this patient. Active Problems: Patient Active Problem List Diagnosis Code New onset of congestive heart failure (HCC) I50.9 CHF (congestive heart failure), NYHA class I, acute on chronic, combined (HCC) I50.43 Isolation/Infection: Isolation No Isolation Patient Infection Status Infection Onset Added Last Indicated Last Indicated By Review Planned Expiration Resolved Resolved By None active Resolved COVID-19 Rule Out 10/20/19 10/20/19 10/20/19 COVID-19 (Ordered) 10/21/19 Colleen Mayer, RN 10/20/19- Not detected Nurse Assessment: Last Vital Signs: BP 118/65 Pulse 77 Temp 97.3 F (36.3 C) (Temporal) Resp 18 Ht 5' 2 (1.575 m) Comment: per pt Wt 129 lb 6.4 oz (58.7 kg) SpO2 96% BMI 23.67 kg/m Last documented pain score (0-10 scale): Pain Level: 0 Last Weight: Wt Readings from Last 1 Encounters: 10/22/19 129 lb 6.4 oz (58.7 kg) Mental Status: oriented, alert and coherent IV Access: - None Nursing Mobility/ADLs: Walking Independent Transfer Independent Bathing Independent Dressing Independent Toileting Independent Feeding Independent 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 Assisted Med Delivery whole Wound Care Documentation and Therapy: Elimination: Continence: Bowel: Yes Bladder: Yes Urinary Catheter: None Colostomy/Ileostomy/Ileal Conduit: No Date of Last BM: Intake/Output Summary (Last 24 hours) at 10/22/2019 1106 Last data filed at 10/21/2019 2152 Gross per 24 hour Intake 10 ml Output Net 10 ml I/O last 3 completed shifts: In: 10 [I.V.:10] Out: - Safety Concerns: None Impairments/Disabilities: Vision and Hearing Nutrition Therapy: Current Nutrition Therapy: - Oral Diet: General Routes of Feeding: Oral Liquids: No Restrictions Daily Fluid Restriction: no Last Modified Barium Swallow with Video (Video Swallowing Test): not done Treatments at the Time of Hospital Discharge: Respiratory Treatments: Oxygen Therapy: is not on home oxygen therapy. Ventilator: - No ventilator support Rehab Therapies: {THERAPEUTIC INTERVENTION:[id number]} Weight Bearing Status/Restrictions: No weight bearing restirctions Other Medical Equipment (for information only, NOT a DME order): cane Other Treatments: Patient's personal belongings (please select all that are sent with patient): Kitty RN SIGNATURE: CASE MANAGEMENT/SOCIAL WORK SECTION Inpatient Status Date: Readmission Risk Assessment Score: Readmission Risk Risk of Unplanned Readmission: 13 Discharging to Facility/ Agency Name: [facility] Address: [address] [place] [address] [facility] (if applicable) Name: Address: Dialysis Schedule: Phone: Fax: Azure Architect/Press Feeder signature: PHYSICIAN SECTION Prognosis: Good Condition at Discharge: Stable Rehab Potential (if transferring to Rehab): Fair Recommended Labs or Other Treatments After Discharge: Physician Certification: I certify the above information and transfer of James Jones is necessary for the continuing treatment of the diagnosis listed and that he requires Acute Rehab for less 30 days. Update Admission H&P: No change in H&P PHYSICIAN SIGNATURE: documented in this encounter* Discharge Instr - MONA* Tonny Jean Baptiste RN - 10/24/2019 2:13 PM EDT Continuity of Care Form Patient Name: James Jones : 1945 Admit date: 10/23/2019 Discharge date: Code Status Order: Prior Advance Directives: Advance Care Flowsheet Documentation Date/Time Healthcare Directive Type of Healthcare Directive Copy in Chart Healthcare Agent Appointed Healthcare Agent's Name Healthcare Agent's Phone Number 10/23/19 1412 No, patient does not have an advance directive for healthcare treatment -- -- Adult Children -- -- 10/23/19 0000 -- -- Adult Children -- -- Admitting Physician: Shravan Solorio MD PCP: SHRAVAN SOLORIO MD Discharging Nurse: Discharging Hospital Unit/Room#: [id number] Discharging Unit Phone Number: Emergency Contact: Extended Emergency Contact Information Primary Emergency Contact: Dilia Jones Relation: Child Past Surgical History: Past Surgical History: Procedure Laterality Date EYE SURGERY FRACTURE SURGERY JOINT REPLACEMENT Immunization History: There is no immunization history on file for this patient. Active Problems: Patient Active Problem List Diagnosis Code New onset of congestive heart failure (HCC) I50.9 CHF (congestive heart failure), NYHA class I, acute on chronic, combined (HCC) I50.43 Chest pain, unspecified R07.9 Chest pain R07.9 Severe malnutrition (HCC) E43 Isolation/Infection: Isolation No Isolation Patient Infection Status Infection Onset Added Last Indicated Last Indicated By Review Planned Expiration Resolved Resolved By None active Resolved COVID-19 Rule Out 10/20/19 10/20/19 10/20/19 COVID-19 (Ordered) 10/21/19 Colleen Mayer RN 10/20/19- Not detected Nurse Assessment: Last Vital Signs: BP 113/68 Pulse 80 Temp 96.7 F (35.9 C) (Temporal) Resp 16 Ht 5' 2 (1.575 m) Wt 123 lb 1.6 oz (55.8 kg) SpO2 94% BMI 22.52 kg/m Last documented pain score (0-10 scale): Pain Level: 0 Last Weight: Wt Readings from Last 1 Encounters: 10/23/19 123 lb 1.6 oz (55.8 kg) Mental Status: confused at times IV Access: - None Nursing Mobility/ADLs: Walking Assisted Transfer Assisted Bathing Assisted Dressing Assisted Toileting Assisted Feeding Independent 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 Assisted Med Delivery whole Wound Care Documentation and Therapy: Elimination: Continence: Bowel: no Bladder: {YES / NO:} Urinary Catheter: None Colostomy/Ileostomy/Ileal Conduit: {YES / NO:} Date of Last BM: 10/24/2019 Intake/Output Summary (Last 24 hours) at 10/24/2019 1412 Last data filed at 10/24/2019 1114 Gross per 24 hour Intake 240 ml Output 150 ml Net 90 ml I/O last 3 completed shifts: In: 500 [IV Piggyback:500] Out: - Safety Concerns: At Risk for Falls Impairments/Disabilities: None Nutrition Therapy: Current Nutrition Therapy: - Oral Diet: Cardiac Routes of Feeding: None Liquids: {[employer] liquid thickness:70031} Daily Fluid Restriction: no Last Modified Barium Swallow with Video (Video Swallowing Test): {Done Not Done Date:} Treatments at the Time of Hospital Discharge: Respiratory Treatments: Oxygen Therapy: is not on home oxygen therapy. Ventilator: - No ventilator support Rehab Therapies: {THERAPEUTIC INTERVENTION:[id number]} Weight Bearing Status/Restrictions: No weight bearing restirctions Other Medical Equipment (for information only, NOT a DME order): {EQUIPMENT:[id number]} Other Treatments: Patient's personal belongings (please select all that are sent with patient): None RN SIGNATURE: CASE MANAGEMENT/SOCIAL WORK SECTION Inpatient Status Date: Readmission Risk Assessment Score: Readmission Risk Risk of Unplanned Readmission: 14 Discharging to Facility/ Agency Name: [facility] Address: [address] [place] [address] [facility] ([facility]) Name: Address: Dialysis Schedule: Phone: Fax: Azure Architect/Press Feeder signature: PHYSICIAN SECTION Prognosis: Good Condition at Discharge: Stable Rehab Potential (if transferring to Rehab): Fair Recommended Labs or Other Treatments After Discharge: Physician Certification: I certify the above information and transfer of James Jones is necessary for the continuing treatment of the diagnosis listed and that he requires Acute Rehab for less 30 days. Update Admission H&P: No change in H&P PHYSICIAN SIGNATURE: documented in this encounter History of Present Illness * SamantaSarina, ROOM SERVICE BELLHOP - 10/21/2019 12:05 PM EDT Physical Therapy Facility/Department: [facility] Daily Treatment Note NAME: James Jones : 1945 Date of Service: 10/21/2019 Discharge Recommendations: (Recommendation changed to Facility based therapy post discussion with PT.) Assessment Assessment: Pt has short choppy steps with decrease balance . Pt would benefit from therapy to progress safe functional mobility Activity Tolerance Activity Tolerance: Patient limited by fatigue;Patient limited by endurance Patient Diagnosis(es): The primary encounter diagnosis was New onset of congestive heart failure (HCC). Diagnoses of Chest pain, unspecified type and Anemia, unspecified type were also pertinent to this visit. has a past medical history of Hyperlipidemia, Hypertension, and Insomnia. has a past surgical history that includes eye surgery; joint replacement; and fracture surgery. Restrictions Restrictions/Precautions Restrictions/Precautions: General Precautions, Fall Risk(tele) Required Braces or Orthoses?: No Subjective General Chart Reviewed: Yes Subjective Subjective: Pt is agreeable to therapy General Comment Comments: OK per RN for therapy Pain Screening Patient Currently in Pain: Denies Vital Signs Patient Currently in Pain: Denies Objective Bed mobility Supine to Sit: Modified independent Sit to Supine: Modified independent Scooting: Modified independent Transfers Sit to Stand: Stand by assistance Stand to sit: Stand by assistance Ambulation Ambulation?: Yes Ambulation 1 Surface: level tile Device: Single point cane Assistance: Contact guard assistance Quality of Gait: Pt has short choppy steps with slow pace with degrease balance but LOB . Gait Deviations: Slow Giovana;Shuffles;Decreased step length;Decreased step height Distance: 30'x1,40'x1 Comments: Cautioned pt not to get up in room alone for safety reasons Goals Short term goals Time Frame for Short term goals: 5 visits Short term goal 1: Pt will complete 2-3 sets/10 reps of LE exercises to improve LE strength(NA) Short term goal 2: Pt will complete sit<->stand at mod I in preparation for ambulation(partially met) Short term goal 3: Pt will ambulate at least 40'x2 with SPC at mod I to improve functional mobility(partially met) Short term goal 4: Pt will ascend/descend 10 stairs with railing at Luis Alfredo for access to bedroom(NA) Patient Goals Patient goals : to feel better Plan Plan Times per week: 3 visit Times per day: Daily Current Treatment Recommendations: (Cont ther ex and functional training) Plan Comment: Goals and/or treatment plan were established in collaboration with patient Safety Devices Type of devices: All fall risk precautions in place, Call light within reach, Left in bed Therapy Time Individual Concurrent Group Co-treatment Time In 1010 Time Out 1024 Minutes 14 Timed Code Treatment Minutes: 12 Minutes(gait) Sarina England PTA * Reymundo Poon RD, JACKELINE - 10/21/2019 10:00 AM EDT Pt was requesting to increase frequency of his Ensure HP to BID from [employer] who was assisting ptwith meal selection. Yesterday, pt was concerned about taking too much protein due to his hx of CKD3. Pt did not want to try Ensure clear supplement. Spoke with pt today that we could give him one Ensure HP and the other Ensure can be Ensure compact which has lower protein content than Ensure HP. Ensure HP and Ensure compact each once daily would provide total of 380 kcals and 25g protein per day. Monitor renal labs with ONS. K+ wnl. RD will continue to follow. * Shravan Solorio MD - 10/21/2019 8:35 AM EDT James Jones is a 74 y.o. male patient. Current Facility-Administered Medications Medication Dose Route Frequency Provider Last Rate Last Dose amLODIPine (NORVASC) tablet 10 mg 10 mg Oral Daily Sarhablaine SommerGREG higuera - PRESIDENT & CEO 10 mg at spironolactone (ALDACTONE) tablet 25 mg 25 mg Oral Daily GREG Patel PRESIDENT & CEO 25 mg at 10/20/19 08 torsemide (DEMADEX) tablet 20 mg 20 mg Oral Daily GREG Madrid CNP 20 mg at 10/20/19 0835 doxazosin (CARDURA) tablet 4 mg 4 mg Oral Nightly Shravan Solorio MD 4 mg at 10/20/195 carvedilol (COREG) tablet 25 mg 25 mg Oral BID WC GREG Madrid CNP 25 mg at 10/20/19 1644 potassium chloride (KLOR-CON M) extended release tablet 20 mEq 20 mEq Oral Daily with breakfast GREG Madrid CNP 20 mEq at 10/20/19 0836 polyvinyl alcohol (LIQUIFILM TEARS) 1.4 % ophthalmic solution 1 drop 1 drop Both Eyes TID PRN Shravan Solorio MD 1 drop at 10/19/19 2159 lisinopril (PRINIVIL;ZESTRIL) tablet 10 mg 10 mg Oral Daily Shravan Carranza MD 10 mg at 10/20/19 0836 acetaminophen (TYLENOL) tablet 500 mg 500 mg Oral Q6H PRN Shravan Solorio MD Or acetaminophen (TYLENOL) tablet 1,000 mg 1,000 mg Oral Q6H PRN Shravan Solorio MD 1,000 mg at 10/21/19 0630 sodium chloride flush 0.9 % injection 3 mL 3 mL Intravenous Q8H Sumit Monroy MD 3 mL at 10/20/19 0836 levothyroxine (SYNTHROID) tablet 50 mcg 50 mcg Oral Daily Shravan Solorio MD 50 mcg at 10/21/19 0630 cetirizine (ZYRTEC) tablet 10 mg 10 mg Oral Daily Shravan Solorio MD 10 mg at 10/20/19 0835 Magnesium Gluconate tablet 250 mg 250 mg Oral Nightly Shravan Solorio MD 250 mg at 10/20/192124 enoxaparin (LOVENOX) injection 40 mg 40 mg Subcutaneous Daily Shravan Solorio MD 40 mg at 10/20/19 0836 clonazePAM (KLONOPIN) tablet 1 mg 1 mg Oral Nightly PRN Shravan Solorio MD 1 mg at 10/20/192126 Allergies Allergen Reactions Codeine Hydroxyzine Percocet [Oxycodone-Acetaminophen] Vicodin [Hydrocodone-Acetaminophen] Active Problems: New onset of congestive heart failure (HCC) CHF (congestive heart failure), NYHA class I, acute on chronic, combined (HCC) Resolved Problems: * No resolved hospital problems. * Blood pressure 126/81, pulse 78, temperature 97.9 F (36.6 C), temperature source Temporal, resp. rate 18, height 5' 2 (1.575 m), weight 127 lb 9.6 oz (57.9 kg), SpO2 96 %. Subjective: Symptoms: He reports weakness. No shortness of breath. Diet: Poor intake. Activity level: Impaired due to weakness. Pain: He reports no pain. Objective: General Appearance: Uncomfortable and ill-appearing. Vital signs: (most recent): Blood pressure 126/81, pulse 78, temperature 97.9 F (36.6 C), temperature source Temporal, resp. rate 18, height 5' 2 (1.575 m), weight 127 lb 9.6 oz (57.9 kg), SpO2 96 %. Vital signs are normal. Output: Producing urine. HEENT: Normal HEENT exam. Lungs: Normal effort and normal respiratory rate. Breath sounds clear to auscultation. Heart: Normal rate. Regular rhythm. S1 normal. Abdomen: Abdomen is soft. There is no abdominal tenderness. Assessment: (HFpEF Weakness Inability to care for self). Plan: Consults: social director and physical therapy. Regular diet. (D/c planning). SHRAVAN SOLORIO MD 10/21/2019 * Reymundo Poon, RONDA, LD - 10/20/2019 2:31 PM EDT Comprehensive Nutrition Assessment Type and Reason for Visit: Reassess Nutrition Recommendations/Plan: 1. Continue with Cardiac diet. 2. Initiate Ensure high protein once daily per MNT protocol. Ensure High Protein provides 160 kcals, 16 g protein per serving. 3. Please document pt's PO intakes via flowsheet to accurately assess PO intake adequacy. 4. Pt received diet information from other RD at previous follow up. Pt has no further questions atthis time. Pt is aware of the need to limit sodium from his diet to prevent fluid accumulation. RD contact information provided for questions/concerns. 5. Monitor intakes, wts, and labs. RD will follow. Nutrition Assessment: Pt reports that he is eating mostly almost 100% of his meals. Pt reports difficulty chewing as he does not have his bottom dentures. Prefers soft/chopped foods for ease of mastication Malnutrition Assessment: Malnutrition Status: Insufficient data Context: Acute Illness Findings of the 6 clinical characteristics of malnutrition: Energy Intake: No significant decrease in energy intake(Pt reports good appetite, eating 75-100% ofmeals) Weight Loss: (16% wt loss in 7 months based on CBW 122# and wt of 145# (02/2019). Pt vague whether this was partly fluid wt loss vs actual wt loss. Pt is on Torsemide water pill currently) Body Fat Loss: 1 - Mild body fat loss Orbital Muscle Mass Loss: 1 - Mild muscle mass loss [place] (temporalis), Clavicles (pectoralis & deltoids) Fluid Accumulation: No significant fluid accumulation Sample Hand Strength: Not Performed Estimated Daily Nutrient Needs: Energy (kcal): 5708-1207; Weight Used for Energy Requirements: [place] Protein (g): 43-54; Weight Used for Protein Requirements: [place](.8-1.0) Fluid (ml/day): 1350ml/day or per MD; Weight Used for Fluid Requirements: [place] Nutrition Related Findings: no edema; Previously reported 135-140# UBW range. Na 132 BUN46, Cr 1.77, GFR 36.9, Troponin 0.036, NT pro BNP 17, 549 Wounds: None Current Nutrition Therapies: DIET CARDIAC; Low Sodium (2 GM) Dietary Nutrition Supplements: Low Calorie High Protein Supplement Anthropometric Measures: Height: 5' 2 (157.5 cm)(per pt) Current Body Weight: 121 lb (54.9 kg) Admission Body Weight: 134 lb (60.8 kg)(10/13/. 10/14 126# standing scale, 10/16 121#) Usual Body Weight: 135 lb (61.2 kg)(135-140#) [place] Body Weight: 118 lbs; % [place] Body Weight 102.5 % BMI: 22.1 Adjusted Body Weight: ; No Adjustment Adjusted BMI: BMI Categories: Normal Weight (BMI 22.0 to 24.9) age over 65 Nutrition Diagnosis: Increased nutrient needs related to increase demand for energy/nutrients as evidenced by weight loss Biting/chewing (masticatory) difficulty related to partial or complete edentulism as evidenced by poor dentition Nutrition Interventions: Food and/or Nutrient Delivery: Continue Current Diet, Start Oral Nutrition Supplement Nutrition Education/Counseling: Education completed Coordination of Nutrition Care: Continued Inpatient Monitoring Goals: Pt will receive/tolerate adequate nutrition to halt wt loss Nutrition Monitoring and Evaluation: Behavioral-Environmental Outcomes: Knowledge or Skill, Beliefs and Attitutes Food/Nutrient Intake Outcomes: Food and Nutrient Intake, Supplement Intake Physical Signs/Symptoms Outcomes: Biochemical Data, Chewing or Swallowing, GI Status, Fluid Status or Edema, Meal Time Behavior, Nutrition Focused Physical Findings, Skin, Weight Discharge Planning: Continue current diet Contact: [id number] * Shravan Solorio MD - 10/20/2019 7:54 AM EDT James Jones is a 74 y.o. male patient. Current Facility-Administered Medications Medication Dose Route Frequency Provider Last Rate Last Dose amLODIPine (NORVASC) tablet 10 mg 10 mg Oral Daily Sarah George APRN - PRESIDENT & CEO 10 mg at spironolactone (ALDACTONE) tablet 25 mg 25 mg Oral Daily Fariba Francisco APRN - PRESIDENT & CEO 25 mg at 10/19/19 0808 torsemide (DEMADEX) tablet 20 mg 20 mg Oral Daily Mari Tirado APRN - PRESIDENT & CEO 20 mg at 10/19/19 0808 doxazosin (CARDURA) tablet 4 mg 4 mg Oral Nightly Shravan Solorio MD 4 mg at 10/19/192152 carvedilol (COREG) tablet 25 mg 25 mg Oral BID Mari Tirado APRN - PRESIDENT & CEO 25 mg at 10/19/19 1724 potassium chloride (KLOR-CON M) extended release tablet 20 mEq 20 mEq Oral Daily with breakfast Mari Tirado APRN - JOSEPH 20 mEq at 10/19/19 0808 polyvinyl alcohol (LIQUIFILM TEARS) 1.4 % ophthalmic solution 1 drop 1 drop Both Eyes TID PRN Shravan Solorio MD 1 drop at 10/19/19 2159 lisinopril (PRINIVIL;ZESTRIL) tablet 10 mg 10 mg Oral Daily Shravan Carranza MD 10 mg at 10/19/19 0808 acetaminophen (TYLENOL) tablet 500 mg 500 mg Oral Q6H PRN Shravan Solorio MD Or acetaminophen (TYLENOL) tablet 1,000 mg 1,000 mg Oral Q6H PRN Shravan Solorio MD 1,000 mg at 10/19/19 215 sodium chloride flush 0.9 % injection 3 mL 3 mL Intravenous Q8H Sumit Monroy MD 3 mL at 10/20/19 0158 levothyroxine (SYNTHROID) tablet 50 mcg 50 mcg Oral Daily Shravan Solorio MD 50 mcg at 10/20/19 0518 cetirizine (ZYRTEC) tablet 10 mg 10 mg Oral Daily Shravan Solorio MD 10 mg at 10/19/19 0808 Magnesium Gluconate tablet 250 mg 250 mg Oral Nightly Shravan Solorio MD 250 mg at 10/19/19 215 enoxaparin (LOVENOX) injection 40 mg 40 mg Subcutaneous Daily Shravan Solorio MD 40 mg at 10/19/19 0807 clonazePAM (KLONOPIN) tablet 1 mg 1 mg Oral Nightly PRN Shravan Solorio MD 1 mg at 10/19/19 215 Allergies Allergen Reactions Codeine Hydroxyzine Percocet [Oxycodone-Acetaminophen] Vicodin [Hydrocodone-Acetaminophen] Active Problems: New onset of congestive heart failure (HCC) CHF (congestive heart failure), NYHA class I, acute on chronic, combined (HCC) Resolved Problems: * No resolved hospital problems. * Blood pressure 138/80, pulse 76, temperature 97.4 F (36.3 C), temperature source Temporal, resp. rate 18, height 5' 2 (1.575 m), weight 122 lb 12.8 oz (55.7 kg), SpO2 93 %. Subjective: Symptoms: (States unsteady and increased weakness). Diet: Poor intake. Activity level: Impaired due to weakness. Pain: He reports no pain. Objective: General Appearance: Uncomfortable. Vital signs: (most recent): Blood pressure 138/80, pulse 76, temperature 97.4 F (36.3 C), temperature source Temporal, resp. rate 18, height 5' 2 (1.575 m), weight 122 lb 12.8 oz (55.7 kg), SpO2 93 %. Vital signs are normal. Output: Producing urine. HEENT: Normal HEENT exam. Lungs: Normal effort and normal respiratory rate. Breath sounds clear to auscultation. Heart: Normal rate. Regular rhythm. S1 normal. Abdomen: Abdomen is soft. Bowel sounds are normal. There is no abdominal tenderness. Assessment: (HFpEF Dementia Generalized weakness). Plan: Per physical therapy. Consults: cardiology. Regular diet. (D/c planning). SHRAVAN SOLORIO MD 10/20/2019 * Ruby Kinsey PTA - 10/19/2019 12:18 PM EDT Physical Therapy Facility/Department: [facility] Daily Treatment Note NAME: James Jones : 1945 Date of Service: 10/19/2019 Discharge Recommendations: (Recommendation changed to Facility based therapy post discussion with PT.) Assessment Assessment: Pt demonstrates decreased functional mobility with everything except bed mobility. Pt demonstrates a decrease in balance and stamina as well as very rigid movements of LE's. Pt demonstrated better balance with use of FWW vs cane at this time for gait. Pt is not safe to return home at this time and agrees to change in recommendation to facility based therapy.. REQUIRES PT FOLLOW UP: Yes Activity Tolerance Activity Tolerance: Patient limited by fatigue;Patient limited by endurance;Patient limited by pain Patient Diagnosis(es): The primary encounter diagnosis was New onset of congestive heart failure (HCC). Diagnoses of Chest pain, unspecified type and Anemia, unspecified type were also pertinent to this visit. has a past medical history of Hyperlipidemia, Hypertension, and Insomnia. has a past surgical history that includes eye surgery; joint replacement; and fracture surgery. Restrictions Restrictions/Precautions Restrictions/Precautions: General Precautions, Fall Risk(tele) Required Braces or Orthoses?: No Subjective General Chart Reviewed: Yes Family / Caregiver Present: No(daughter did show up at end of session) Subjective Subjective: Pt is agreeable to therapy Pain Screening Patient Currently in Pain: Denies(but c/o cramping all over.) Objective Bed mobility Supine to Sit: Modified independent Sit to Supine: Modified independent Transfers Sit to Stand: Stand by assistance Stand to sit: Stand by assistance Comment: of 1 with no c/o dizziness but slow to complete with multiple attempts and poor hand placement of one on seated surface and one on device even with cueing. Pt lowers self slowly as well Ambulation Ambulation?: Yes More Ambulation?: Yes Ambulation 1 Surface: level tile Device: Single point cane Assistance: Minimal assistance(of 1 for balance/safety) Quality of Gait: Pt walks with a short, step to pattern with decreased step heigth and rigid / ataxic movement when advancing B LE's. Distance: 80' x 1 Comments: Pt required standing rst breaks while performing Ambulation 2 Surface - 2: level tile Device 2: Rolling Walker Assistance 2: Minimal assistance(of 1 for safety) Quality of Gait 2: Pt able to perform a step thru pattern with increased stride length but still rigid/ataxic movements when advancing B LE's Distance: 50' x 1 Exercises Quad Sets: 1 set / 10 reps in supine B LE Heelslides: 1 set / 10 reps in supine B LE individually with limited ROM per pt Gluteal Sets: 1 set / 10 reps in supine Hip Abduction: 1 set / 10 reps in supine B LE individually Knee Long Arc Quad: 1 set / 10 reps in sitting B LE individually Ankle Pumps: 1 set / 10 reps in supine B LE Comments: Pt's movements appear labored and stiff with decreased ROM for all Goals Short term goals Time Frame for Short term goals: 5 visits Short term goal 1: Pt will complete 2-3 sets/10 reps of LE exercises to improve LE strength(not met) Short term goal 2: Pt will complete sit<->stand at mod I in preparation for ambulation(partially met) Short term goal 3: Pt will ambulate at least 40'x2 with SPC at mod I to improve functional mobility(not met) Short term goal 4: Pt will ascend/descend 10 stairs with railing at [place] for access to bedroom(NA) Patient Goals Patient goals : to feel better Plan Plan Times per week: 4 visits Current Treatment Recommendations: (Cont ther ex and functional training) Safety Devices Type of devices: All fall risk precautions in place, Call light within reach, Left in bed, Patient at risk for falls, Gait belt Therapy Time Individual Concurrent Group Co-treatment Time In 1130 Time Out 1204 Minutes 34 Timed Code Treatment Minutes: 30 Minutes(ther ex and gait) Ruby Kinsey PTA * Shravan Solorio MD - 10/19/2019 10:45 AM EDT James Jones is a 74 y.o. male patient. Current Facility-Administered Medications Medication Dose Route Frequency Provider Last Rate Last Dose amLODIPine (NORVASC) tablet 10 mg 10 mg Oral Daily Sarah George APRN - PRESIDENT & CEO 10 mg at spironolactone (ALDACTONE) tablet 25 mg 25 mg Oral Daily Fariba Francisco APRN - PRESIDENT & CEO 25 mg at 10/19/19 08 torsemide (DEMADEX) tablet 20 mg 20 mg Oral Daily GREG Madrid CNP 20 mg at 10/19/19807 doxazosin (CARDURA) tablet 4 mg 4 mg Oral Nightly Shravan Solorio MD 4 mg at 10/18/192051 carvedilol (COREG) tablet 25 mg 25 mg Oral BID GREG Madrid PRESIDENT & CEO 25 mg at 10/19/19806 potassium chloride (KLOR-CON M) extended release tablet 20 mEq 20 mEq Oral Daily with breakfast GREG Madrid CNP 20 mEq at 10/19/19807 polyvinyl alcohol (LIQUIFILM TEARS) 1.4 % ophthalmic solution 1 drop 1 drop Both Eyes TID PRN Shravan Solorio MD 1 drop at 10/18/19 0806 lisinopril (PRINIVIL;ZESTRIL) tablet 10 mg 10 mg Oral Daily Shravan Carranza MD 10 mg at 10/19/19 0808 acetaminophen (TYLENOL) tablet 500 mg 500 mg Oral Q6H PRN Shravan Solorio MD Or acetaminophen (TYLENOL) tablet 1,000 mg 1,000 mg Oral Q6H PRN Shravan Solorio MD 1,000 mg at 10/19/19 0621 sodium chloride flush 0.9 % injection 3 mL 3 mL Intravenous Q8H Sumit Monroy MD 3 mL at 10/19/19 0808 levothyroxine (SYNTHROID) tablet 50 mcg 50 mcg Oral Daily Shravan Solorio MD 50 mcg at 10/19/19 06 cetirizine (ZYRTEC) tablet 10 mg 10 mg Oral Daily Shravan Solorio MD 10 mg at 10/19/19807 Magnesium Gluconate tablet 250 mg 250 mg Oral Nightly Shravan Solorio MD 250 mg at 10/18/192051 enoxaparin (LOVENOX) injection 40 mg 40 mg Subcutaneous Daily Shravan Solorio MD 40 mg at 10/19/19806 clonazePAM (KLONOPIN) tablet 1 mg 1 mg Oral Nightly PRN Shravan Solorio MD 1 mg at 10/18/192051 Allergies Allergen Reactions Codeine Hydroxyzine Percocet [Oxycodone-Acetaminophen] Vicodin [Hydrocodone-Acetaminophen] Active Problems: New onset of congestive heart failure (HCC) CHF (congestive heart failure), NYHA class I, acute on chronic, combined (HCC) Resolved Problems: * No resolved hospital problems. * Blood pressure (!) 143/79, pulse 70, temperature 97.5 F (36.4 C), temperature source Temporal, resp. rate 20, height 5' 2 (1.575 m), weight 121 lb 12.8 oz (55.2 kg), SpO2 95 %. Subjective: Symptoms: Worsening. He reports shortness of breath and weakness. (Dyspnea with minimal exertion and conversation). Diet: Poor intake. Activity level: Impaired due to weakness. Pain: He reports no pain. Objective: General Appearance: Uncomfortable and ill-appearing. Vital signs: (most recent): Blood pressure (!) 143/79, pulse 70, temperature 97.5 F (36.4 C), temperature source Temporal, resp. rate 20, height 5' 2 (1.575 m), weight 121 lb 12.8 oz (55.2 kg), OaG160 %. Vital signs are normal. Output: Producing urine. HEENT: Normal HEENT exam. Lungs: Normal effort and normal respiratory rate. Breath sounds clear to auscultation. Heart: Normal rate. Regular rhythm. S1 normal. Abdomen: Abdomen is soft. Bowel sounds are normal. There is no abdominal tenderness. Assessment: (Generalized debility Dyspnea HFpEF HTN). Plan: Consults: physical therapy, occupational therapy and social director. Regular diet. (Has decided onplacement, ...). SHRAVAN SOLORIO MD 10/19/2019 * Lisa Coates OTA - 10/18/2019 3:27 PM EDT Occupational Therapy Facility/Department: [facility] Daily Treatment Note NAME: James Jones : 1945 Date of Service: 10/18/2019 Discharge Recommendations: 24 hour supervision or assist, Home with Home health OT, Continue to assess pending progress Assessment Assessment: Pt progressing with therapy and tolerated well with rest. Pt c/o leg spasms, hand numbness, overall weakness but no dizziness. Pt was 186/017 after short walk. Nursing aware. Is supervision with ADLs. Would benefit from continued OT to increase strength and endurance needed for ADL's and transfers. REQUIRES OT FOLLOW UP: Yes Safety Devices Safety Devices in place: Yes Type of devices: All fall risk precautions in place;Left in bed;Gait belt;Nurse notified;Call lightwithin reach Patient Diagnosis(es): The primary encounter diagnosis was New onset of congestive heart failure (HCC). Diagnoses of Chest pain, unspecified type and Anemia, unspecified type were also pertinent to this visit. has a past medical history of Hyperlipidemia, Hypertension, and Insomnia. has a past surgical history that includes eye surgery; joint replacement; and fracture surgery. Restrictions Restrictions/Precautions Restrictions/Precautions: General Precautions, Fall Risk(tele) Required Braces or Orthoses?: No Subjective General Chart Reviewed: Yes Family / Caregiver Present: No Subjective Subjective: Pt with multiple complaints of leg spasms, hands numb, etc. Nursing made aware. General Comment Comments: RN states okay to see. BP was 140/80 manually in supine (per RN), was 165/99 in sitting (automatic) and was 186/107 (automatic machine) after short walk. Nursing notified. JASON saw pt standing in room by himself after therapy. Nursing is aware and pt okay to be up. Vital Signs Patient Currently in Pain: Other (comment)(Leg spasms but did not rate.) Objective ADL Grooming: Supervision(standing at the sink) LE Dressing: Supervision(Able to don/doff pants and socks with extra time.) Additional Comments: No c/o dizziness. Pt unsteady at times but no true LOB. Balance Sitting Balance: Modified independent Standing Balance: Supervision Standing Balance Time: 4-6 min Activity: LB self care and BP in standing. Comment: No LOB. Unsteady initially but no LOB. Functional Mobility Functional - Mobility Device: Cane Activity: Other Assist Level: Supervision Functional Mobility Comments: To/from sink. No c/o dizziness. Bed mobility Supine to Sit: Modified independent Sit to Supine: Modified independent Scooting: Modified independent Transfers Sit to stand: Modified independent Stand to sit: Modified independent Plan Plan Times per week: 2 visits Current Treatment Recommendations: Strengthening, ROM, Balance Training, Safety Education & Training, Self-Care / ADL, Cognitive/Perceptual Training, Equipment Evaluation, Education, & procurement, Endurance Training, Functional Mobility Training, Patient/Caregiver Education & Training,Home Management Training Plan Comment: Goals and POC made in collaboration with pt. Goals Short term goals Time Frame for Short term goals: 3 visits Short term goal 1: Pt will complete full body ADLs with MOD I. progressing Short term goal 2: Pt will complete toileting including transfer with MOD I . NA Short term goal 3: Pt will complete functional transfers and mobility at cane with MOD I. progressing Short term goal 4: Pt will complete functional standing during ADL routine for >10 minutes with MOD I and use of cane. progressing Patient Goals Patient goals : To go home Therapy Time Individual Concurrent Group Co-treatment Time In 1335 Time Out 1409 Minutes 34 Timed Code Treatment Minutes: 32 Minutes(adl and ther act) GEMMA Rodrigues * Shravan Solorio MD - 10/18/2019 8:05 AM EDT James Jones is a 74 y.o. male patient. Current Facility-Administered Medications Medication Dose Route Frequency Provider Last Rate Last Dose amLODIPine (NORVASC) tablet 10 mg 10 mg Oral Daily GREG Iqbal CNP potassium chloride (KLOR-CON M) extended release tablet 20 mEq 20 mEq Oral Once GREG Iqbal CNP spironolactone (ALDACTONE) tablet 25 mg 25 mg Oral Daily GREG Patel CNP 25 mg at 10/17/19 1447 torsemide (DEMADEX) tablet 20 mg 20 mg Oral Daily GREG Madrid CNP 20 mg at 10/17/19 0823 doxazosin (CARDURA) tablet 4 mg 4 mg Oral Nightly Shravan Solorio MD 4 mg at 10/17/192035 carvedilol (COREG) tablet 25 mg 25 mg Oral BID WC GREG Madrid CNP 25 mg at 10/17/19 1827 potassium chloride (KLOR-CON M) extended release tablet 20 mEq 20 mEq Oral Daily with breakfast GREG Madrid CNP 20 mEq at 10/17/19 08 polyvinyl alcohol (LIQUIFILM TEARS) 1.4 % ophthalmic solution 1 drop 1 drop Both Eyes TID PRN Shravan Solorio MD 1 drop at 10/16/19 0812 lisinopril (PRINIVIL;ZESTRIL) tablet 10 mg 10 mg Oral Daily Shravan Carranza MD 10 mg at 10/17/19 0823 acetaminophen (TYLENOL) tablet 500 mg 500 mg Oral Q6H PRN Shravan Solorio MD Or acetaminophen (TYLENOL) tablet 1,000 mg 1,000 mg Oral Q6H PRN Shravan Solorio MD 1,000 mg at 10/17/19 1446 sodium chloride flush 0.9 % injection 3 mL 3 mL Intravenous Q8H Sumit Monroy MD 3 mL at 10/17/19 183 levothyroxine (SYNTHROID) tablet 50 mcg 50 mcg Oral Daily Shravan Solorio MD 50 mcg at 10/18/19 0359 cetirizine (ZYRTEC) tablet 10 mg 10 mg Oral Daily Shravan Solorio MD 10 mg at 10/17/19 0823 Magnesium Gluconate tablet 250 mg 250 mg Oral Nightly Shravan Solorio MD 250 mg at 10/17/192035 enoxaparin (LOVENOX) injection 40 mg 40 mg Subcutaneous Daily Shravan Solorio MD 40 mg at 10/17/19 0824 clonazePAM (KLONOPIN) tablet 1 mg 1 mg Oral Nightly PRN Shravan Solorio MD 1 mg at 10/14/195 Allergies Allergen Reactions Codeine Hydroxyzine Percocet [Oxycodone-Acetaminophen] Vicodin [Hydrocodone-Acetaminophen] Active Problems: New onset of congestive heart failure (HCC) CHF (congestive heart failure), NYHA class I, acute on chronic, combined (HCC) Resolved Problems: * No resolved hospital problems. * Blood pressure (!) 167/92, pulse 72, temperature 98.2 F (36.8 C), temperature source Temporal, resp. rate 20, height 5' 2 (1.575 m), weight 121 lb 12.8 oz (55.2 kg), SpO2 96 %. Subjective: Symptoms: Worsening. He reports weakness. (States too weak and cannot take care of self). Diet: Poor intake. Activity level: Impaired due to weakness. Pain: He reports no pain. Objective: General Appearance: Uncomfortable. Vital signs: (most recent): Blood pressure (!) 167/92, pulse 72, temperature 98.2 F (36.8 C), temperature source Temporal, resp. rate 20, height 5' 2 (1.575 m), weight 121 lb 12.8 oz (55.2 kg), WaD069 %. (Elevated BP). HEENT: Normal HEENT exam. Lungs: Normal effort and normal respiratory rate. Breath sounds clear to auscultation. Heart: Normal rate. Regular rhythm. S1 normal. Abdomen: There is generalized tenderness. Extremities: Normal range of motion. Pulses: Distal pulses are intact. Neurological: Patient is alert. Assessment: (HFpEF Generalized debility dementia). Plan: Encourage ambulation. Regular diet. (D/c planning). SHRAVAN SOLORIO MD 10/18/2019 * Sarah George, [employer]PERATOR - PRESIDENT & CEO - 10/18/2019 6:12 AM EDT CARDIOLOGY PROGRESS NOTE Chart and interval events reviewed. Reason for Visit heart failure with preserved EF SUBJECTIVE: James Guardado Jones is awake in bed. Denies chest pain, syncope, orthopnea or palpitations. SOB has improved. C/o feeling weak and of leg cramps last night. SCHEDULED MEDICATIONS: spironolactone 25 mg Oral Daily torsemide 20 mg Oral Daily doxazosin 4 mg Oral Nightly carvedilol 25 mg Oral BID WC potassium chloride 20 mEq Oral Daily with breakfast lisinopril 10 mg Oral Daily amLODIPine 5 mg Oral Daily sodium chloride flush 3 mL Intravenous Q8H levothyroxine 50 mcg Oral Daily cetirizine 10 mg Oral Daily Magnesium Gluconate 250 mg Oral Nightly enoxaparin 40 mg Subcutaneous Daily Active Problems: New onset of congestive heart failure (HCC) CHF (congestive heart failure), NYHA class I, acute on chronic, combined (HCC) Resolved Problems: * No resolved hospital problems. * Review of Systems: Review of Systems Constitutional: Negative for chills, diaphoresis, fatigue and fever. complains of feeling weak HENT: Positive for sore throat. Negative for congestion. Eyes: Negative for visual disturbance. Respiratory: Positive for shortness of breath. Negative for cough and wheezing. Denies PND or orthopnea, mild LAZO Cardiovascular: Negative for chest pain, palpitations and leg swelling. Denies CP or palpitations Gastrointestinal: Negative for abdominal pain, blood in stool, constipation, diarrhea, nausea and vomiting. Genitourinary: Negative for hematuria. Neurological: Negative for dizziness and syncope. Denies dizziness or light headedness VITAL SIGNS: Vitals: 10/17/19 1520 10/17/19 2035 10/17/19 2351 10/18/19 0354 BP: (!) 167/96 137/78 (!) 141/85 (!) 169/94 Pulse: 75 68 67 72 Resp: Temp: 98.3 F (36.8 C) 97.3 F (36.3 C) 97.3 F (36.3 C) 98.2 F (36.8 C) TempSrc: Temporal Temporal Temporal Temporal SpO2: 98% 96% 96% 96% Weight: Height: Intake/Output Summary (Last 24 hours) at 10/18/2019 0612 Last data filed at 10/17/2019 2351 Gross per 24 hour Intake 450 ml Output 1100 ml Net -650 ml Patient Vitals for the past 96 hrs (Last 3 readings): Weight 10/17/19 0415 121 lb 12.8 oz (55.2 kg) 10/16/19 0800 123 lb 9.6 oz (56.1 kg) 10/15/19 0440 126 lb 3.2 oz (57.2 kg) Physical Exam: Physical Exam Constitutional: General: He is not in acute distress. Appearance: Normal appearance. He is well-developed. He is not diaphoretic. HENT: Head: Normocephalic. Mouth/Throat: Pharynx: No oropharyngeal exudate. Eyes: General: No scleral icterus. Right eye: No discharge. Left eye: No discharge. Conjunctiva/sclera: Conjunctivae normal. Neck: Thyroid: No thyromegaly. Vascular: No JVD. Cardiovascular: Rate and Rhythm: Normal rate and regular rhythm. Chest Wall: PMI is not displaced. Pulses: Normal pulses. Heart sounds: Normal heart sounds. No murmur. No gallop. Pulmonary: Effort: No accessory muscle usage or respiratory distress. Breath sounds: Normal breath sounds. Abdominal: General: Bowel sounds are normal. There is no distension or abdominal bruit. Palpations: Abdomen is soft. There is no shifting dullness or hepatomegaly. Tenderness: There is no abdominal tenderness. Musculoskeletal: Normal range of motion. General: No swelling. Skin: General: Skin is warm and dry. Neurological: Mental Status: He is alert and oriented to person, place, and time. Data: Scheduled Meds: Reviewed Continuous Infusions: CBC: Recent Labs 10/16/19 0416 WBC 4.5 HGB 11.1* HCT 33.6* PLT 184 BMP: Recent Labs 10/17/19 0456 10/18/19 0357 NA 137 136 K 3.1* 3.4* CL 100 100 CO2 29 27 BUN 25* 31* CREATININE 1.65* 1.68* INR:No results for input(s): INR in the last 72 hours. No results for input(s): BNP in the last 72 hours. TSH: Lab Results Component Value Date TSH 3.245 10/15/2019 Cardiac Injury Profile: Recent Labs 10/15/19 1307 TROPONINI 0.036* Lipid Profile: Lab Results Component Value Date TRIG 128 10/14/2019 HDL 40 10/14/2019 CHOL 131 10/14/2019 EKG: See Report Telemetry Reviewed: SR. Echo: 10/15/2019- SUMMARY: 1. Left ventricle: The cavity size is normal. Wall thickness is moderately increased. Systolic function is normal by visual assessment. The estimated ejection fraction is 55%. 2. Aortic valve: Trileaflet; mildly calcified leaflets. There is no regurgitation. IMPRESSIONS/RECOMMENDATIONS: 1. Heart failure with preserved EF- dyspnea continues to improve. Euvolemic on examination. - I/O -650/24 hours - I educated regarding the importance of daily weights, and a low sodium diet. -OK to d/c per cardiology. 2. Hypertension- suboptimal 140-160s systolic - increase amlodipine to 10 mg daily 3. Renal insuffiencey- creatinine mildly elevated - stable 4. Hypokalemia: -replacement K+ additional dose today, garett added yesterday 5. Weakness: per primary team 6. Disp- f/u appointment arranged with Gabby KELLER 10/23/2019 at 2:30 pm. Electronicallysigned by GREG IQBAL CNP on 10/18/2019 at 6:12 AM * Lacy Capps, OT - 10/17/2019 3:12 PM EDT Occupational Therapy Occupational Therapy Initial Assessment Date: 10/17/2019 Patient Name: James Jones : 1945 Date of Service: 10/17/2019 Discharge Recommendations: 24 hour supervision or assist, Home with Home health OT, Continue to assess pending progress OT Equipment Recommendations Equipment Needed: No Other: TBD Assessment Performance deficits / Impairments: Decreased strength;Decreased high-level IADLs;Decreased balance;Decreased cognition Assessment: Pt is a 74 yo male admitted to [facility] with SOB and chest heaviness, new onset of CHF. 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 Pt is now at SUPV level and is at risk for further decline d/t decreased balance, increased dizziness with change in position, and overall weakness/fatigue. Ptis expected to benefit from further acute OT skilled services to increase indep and safety needed for occupational participation. Prognosis: Good Decision Making: Medium Complexity History: Pt's history significant for dementia, HTN, and HLD. Detailed PMH is listed below. Exam: AM PAC Assistance / Modification: SUPV OT Education: OT Role;Plan of Care;Energy Conservation;Precautions Barriers to Learning: Some cog noted REQUIRES OT FOLLOW UP: Yes Activity Tolerance Activity Tolerance: Patient limited by fatigue Safety Devices Safety Devices in place: Yes Type of devices: All fall risk precautions in place;Left in bed;Gait belt;Nurse notified;Call lightwithin reach Patient Diagnosis(es): The primary encounter diagnosis was New onset of congestive heart failure (HCC). Diagnoses of Chest pain, unspecified type and Anemia, unspecified type were also pertinent to this visit. has a past medical history of Hyperlipidemia, Hypertension, and Insomnia. has a past surgical history that includes eye surgery; joint replacement; and fracture surgery. Restrictions Restrictions/Precautions Restrictions/Precautions: General Precautions, Fall Risk(tele) Required Braces or Orthoses?: No Subjective General Chart Reviewed: Yes Patient assessed for rehabilitation services?: Yes Family / Caregiver Present: No Subjective Subjective: Per RN, pt ok to see. Pt in bed on arrival, pleasant and cooperative, agreeable to OT eval. Patient Currently in Pain: Yes Pain Assessment Pain Assessment: 0-10 Pain Level: 6 Patient's Stated Pain Goal: 1 Pain Type: Acute pain Pain Location: Chest Pain Descriptors: Aching Non-Pharmaceutical Pain Intervention(s): Rest;Repositioned Vital Signs Patient Currently in Pain: Yes Social/Functional History Social/Functional History Lives With: Other (comment)(Roommates) Type of Home: House Home Layout: Two level, Bed/Bath upstairs, 1/2 bath on main level Home Access: Stairs to enter with rails Entrance Stairs - Number of Steps: 3 Entrance Stairs - Rails: None Bathroom Shower/Tub: Tub/Shower unit Bathroom Toilet: Standard Bathroom Equipment: Grab bars in shower Bathroom Accessibility: Accessible Home Equipment: Cane Receives Help From: Family ADL Assistance: Independent Homemaking Assistance: Independent Homemaking Responsibilities: Yes(daughter assists PRN) Ambulation Assistance: Independent(at cane PRN) Transfer Assistance: Independent Occupation: Retired Objective Vision: Within Functional Limits Hearing: Within functional limits Orientation Overall Orientation Status: Within Functional Limits Observation/Palpation Posture: Good Observation: Tele intact Balance Sitting Balance: Independent Standing Balance: Supervision(at cane) Standing Balance Time: Pt only able to tolerate <20 seconds in standing d/t increased dizziness with change in position. RN notified. Functional Mobility Functional Mobility Comments: Pt with increased dizziness with change in position. Further mobilitydeferred at this time d/t safety concerns. ADL Feeding: Independent Grooming: Supervision UE Bathing: Supervision LE Bathing: Supervision UE Dressing: Supervision LE Dressing: Supervision Toileting: Supervision Additional Comments: SUPV to monitor dizziness with functional tasks Bed mobility Supine to Sit: Modified independent Sit to Supine: Modified independent Scooting: Modified independent Comment: Pt with c/o dizziness with change in position. EOB SpO2 WFL, BP 162/80, RN notified. Transfers Sit to stand: Supervision Stand to sit: Supervision Transfer Comments: At cane Cognition Overall Cognitive Status: Exceptions Arousal/Alertness: Appropriate responses to stimuli Following Commands: Follows all commands without difficulty Attention Span: Appears intact Memory: Decreased short term memory Safety Judgement: Good awareness of safety precautions Problem Solving: Able to problem solve independently Insights: Fully aware of deficits Initiation: Does not require cues Sequencing: Does not require cues Cognition Comment: hx of mild dementia Sensation Overall Sensation Status: WFL LUE AROM (degrees) LUE AROM : WFL RUE AROM (degrees) RUE AROM : WFL LUE Strength Gross LUE Strength: WFL RUE Strength Gross RUE Strength: WFL Plan Plan Times per week: 3 visits Current Treatment Recommendations: Strengthening, ROM, Balance Training, Safety Education & Training, Self-Care / ADL, Cognitive/Perceptual Training, Equipment Evaluation, Education, & procurement, Endurance Training, Functional Mobility Training, Patient/Caregiver Education & Training,Home Management Training Plan Comment: Goals and POC made in collaboration with pt. Patient's occupational therapy plan of care supervision is transferred to Inpatient Therapy Services Department occupational therapist. AM-PAC Score AM-PAC Inpatient Daily Activity Raw Score: 19 (10/17/191510) AM-PAC Inpatient ADL T-Scale Score : 40.22 (10/17/191510) ADL Inpatient CMS 0-100% Score: 42.8 (10/17/191510) ADL Inpatient CMS G-Code Modifier : CK (10/17/191510) Goals Short term goals Time Frame for Short term goals: 3 visits Short term goal 1: Pt will complete full body ADLs with MOD I Short term goal 2: Pt will complete toileting including transfer with MOD I Short term goal 3: Pt will complete functional transfers and mobility at cane with MOD I Short term goal 4: Pt will complete functional standing during ADL routine for >10 minutes with MOD I and use of cane Patient Goals Patient goals : To go home Therapy Time Individual Concurrent Group Co-treatment Time In 1318(Co-eval with PT) Time Out 1333 Minutes 15 Lacy Capps OT * Evette Han, PT - 10/17/2019 2:33 PM EDT Physical Therapy Facility/Department: [facility] Initial Assessment NAME: James Jones : 1945 Date of Service: 10/17/2019 Discharge Recommendations: Continue to assess pending progress, Home with Home health PT, Home with assist PRN PT Equipment Recommendations Equipment Needed: No Assessment Body structures, Functions, Activity limitations: Decreased functional mobility ;Decreased strength;Decreased safe awareness;Decreased balance Assessment: Pt presents with decreased functional mobility, requiring light assist for transfers d/t dizziness. Pt unable to attempt ambulation d/t dizziness upon standing; however RN reports pt has been ambulating in room. Pt has decreased standing balance and safety awareness, in addition to dizziness, placing pt at risk of falls. Pt is expected to benefit from skilled therapy to address functional mobility, strength, balance, and safety awareness Prognosis: Good Decision Making: Medium Complexity History: Pt admitted with SOB, CHF Exam: AM-PAC Clinical Presentation: Pt admitted with SOB, CHF. Pt has a PMH as listed above that contributes to clinical presentation. At baseline, pt is independent with cane. Pt is expected to progress with acute PT pending medical management and be safe to return home PT Education: Goals;PT Role;Plan of Care;Precautions;General Safety REQUIRES PT FOLLOW UP: Yes Activity Tolerance Activity Tolerance: limited by dizziness Patient Diagnosis(es): The primary encounter diagnosis was New onset of congestive heart failure (HCC). Diagnoses of Chest pain, unspecified type and Anemia, unspecified type were also pertinent to this visit. has a past medical history of Hyperlipidemia, Hypertension, and Insomnia. has a past surgical history that includes eye surgery; joint replacement; and fracture surgery. Restrictions Restrictions/Precautions Restrictions/Precautions: General Precautions, Fall Risk(tele) Vision/Hearing Vision: Within Functional Limits Hearing: Within functional limits Subjective General Chart Reviewed: Yes Patient assessed for rehabilitation services?: Yes Subjective Subjective: Pt is agreeable to therapy Pain Screening Patient Currently in Pain: Yes(pt reports chest heaviness, RN aware) Social/Functional History Social/Functional History Lives With: Other (comment) Type of Home: House Home Layout: Two level, Bed/Bath upstairs Home Access: Stairs to enter with rails Entrance Stairs - Number of Steps: 3 Bathroom Shower/Tub: Tub/Shower unit Bathroom Equipment: Grab bars in shower Home Equipment: Cane Receives Help From: Family ADL Assistance: Independent Homemaking Assistance: Independent Ambulation Assistance: Independent(with cane) Transfer Assistance: Independent Occupation: Retired Cognition Cognition Overall Cognitive Status: Exceptions Arousal/Alertness: Appropriate responses to stimuli Following Commands: Follows all commands without difficulty Attention Span: Appears intact Memory: Decreased short term memory(per pt report) Safety Judgement: Good awareness of safety precautions Problem Solving: Able to problem solve independently Insights: Fully aware of deficits Initiation: Does not require cues Sequencing: Does not require cues Objective AROM RLE (degrees) RLE AROM: WFL AROM LLE (degrees) LLE AROM : WFL Strength RLE Comment: observed functionally Strength LLE Comment: observed functionally Sensation Overall Sensation Status: WFL Bed mobility Supine to Sit: Modified independent Sit to Supine: Modified independent Comment: pt with c/o dizziness upon sitting EOB,SpO2 WFL, BP 162/80, RN notified Transfers Sit to Stand: Supervision(no device) Stand to sit: Supervision Comment: pt c/o dizziness upon standing, pt unable to tolerate standing long enough for BP to register, BP upon returning to sitting 146/85 Ambulation Ambulation?: No(deferred d/t c/o dizziness; RN reports pt has been ambulating in room with SPC) Stairs/Curb Stairs?: No Balance Posture: Good Sitting - Static: Good Sitting - Dynamic: Good Standing - Static: Fair Standing - Dynamic: (unable to assess) Plan Plan Times per week: 5 visits Times per day: Daily Current Treatment Recommendations: Strengthening, Balance Training, Functional Mobility Training, Transfer Training, Gait Training, Stair training, Home Exercise Program, Safety Education & Training, Patient/Caregiver Education & Training, Equipment Evaluation, Education, & procurement,Positioning Plan Comment: Goals and/or treatment plan were established in collaboration with patient Safety Devices Type of devices: All fall risk precautions in place, Call light within reach, Gait belt, Patient atrisk for falls, Left in bed, Nurse notified OutComes Score AM-PAC Mobility Inpatient How much difficulty turning over in bed?: A Little How much difficulty sitting down on / standing up from a chair with arms?: A Little How much difficulty moving from lying on back to sitting on side of bed?: A Little How much help from another person moving to and from a bed to a chair?: Total(not assessed) How much help from another person needed to walk in hospital room?: Total(not assessed) How much help from another person for climbing 3-5 steps with a railing?: Total(not assessed) AM-[facility] Inpatient Mobility Raw Score : 12 AM-[facility] Inpatient T-Scale Score : 35.33 Mobility Inpatient CMS 0-100% Score: 68.66 Mobility Inpatient CMS G-Code Modifier : CL AM-PAC Score AM-[facility] Inpatient Mobility Raw Score : 12 (10/17/191415) AM-[facility] Inpatient T-Scale Score : 35.33 (10/17/191415) Mobility Inpatient CMS 0-100% Score: 68.66 (10/17/191415) Mobility Inpatient CMS G-Code Modifier : CL (10/17/191415) Goals Short term goals Time Frame for Short term goals: 5 visits Short term goal 1: Pt will complete 2-3 sets/10 reps of LE exercises to improve LE strength Short term goal 2: Pt will complete sit<->stand at mod I in preparation for ambulation Short term goal 3: Pt will ambulate at least 40'x2 with SPC at mod I to improve functional mobility Short term goal 4: Pt will ascend/descend 10 stairs with railing at [place] for access to bedroom Patient Goals Patient goals : to feel better Therapy Time Individual Concurrent Group Co-treatment Time In 1318(co-eval with OT) Time Out 1333 Minutes 15 Evette Han PT, DPT * Melyssa Balderrama RN - 10/17/2019 11:47 AM EDT Patient was provided with a paper handout of information on new medication Torsemide. * Gris Islas RD, LD - 10/17/2019 11:44 AM EDT Comprehensive Nutrition Assessment Type and Reason for Visit: Initial, Positive Nutrition Screen Nutrition Recommendations/Plan: Continue diet as ordered (Cardiac -2gm sodium) Pt provided with 2 gm sodium diet information for HF. Pt encouraged to share info with family and RD contact number provided for questions/ concerns Diet office providing soft foods/chopped meat per pt request (dentures at home). DT assisting pt with menu selections Request PO intake data. Please continue to record meal intakes in nursing flowsheets for ongoing assessment of nutrition status RD to monitor adequacy of oral intakes/poss need for ONS, labs, weight; follow up weekly Nutrition Assessment: pt admits with new onset CHF, weakness, dementia. hx includes HLD, HTN. pt reports +appetite at this time. 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 -pt unable to recall details.pt reports he avoids salt shaker and high sodium foods -states 'if you review the diet I'll never remember because I have dementia Malnutrition Assessment: Malnutrition Status: Insufficient data Context: Acute Illness Findings of the 6 clinical characteristics of malnutrition: Energy Intake: Unable to assess Weight Loss: (?10% wt loss <6 months based on pts stated ubw however pt unable to provide accurate wt hx and wt records not found) Body Fat Loss: 1 - Mild body fat loss Orbital, Triceps Muscle Mass Loss: 1 - Mild muscle mass loss Temples (temporalis), Clavicles (pectoralis & deltoids), Hand (interosseous) Fluid Accumulation: No significant fluid accumulation Estimated Daily Nutrient Needs: Energy (kcal): 0878-9052; Weight Used for Energy Requirements: [place] Protein (g): 43-54; Weight Used for Protein Requirements: [place](.8-1.0) Fluid (ml/day): 1350ml/day or per MD; Weight Used for Fluid Requirements: [place] Nutrition Related Findings: no edema. pt reports wt loss from ubw 135-140# but unable to provide further detail ?past few months (per pt) . pt on diuretic at this time/fluid loss. pt requests soft foods as he states dentures are at home. labs reviewed include -bun 25, cr 1.65 Wounds: None Current Nutrition Therapies: DIET CARDIAC; Low Sodium (2 GM) Anthropometric Measures: Height: 5' 2 (157.5 cm)(per pt) Current Body Weight: 121 lb (54.9 kg) Admission Body Weight: 134 lb (60.8 kg)(10/14/19. 10/14 126# standing scale, 10/16 121#) Usual Body Weight: 135 lb (61.2 kg)(135-140#) [place] Body Weight: 118 lbs; % [place] Body Weight 102.5 % BMI: 22.1 BMI Categories: Normal Weight (BMI 22.0 to 24.9) age over 65 Nutrition Diagnosis: Food & Nutrition-related knowledge deficit related to cardiac dysfunction as evidenced by other(comment)(new dx HF) Inadequate oral intake related to cognitive or neurological impairment as evidenced by weight loss,mild loss of subcutaneous fat, mild muscle loss, poor intake prior to admission Nutrition Interventions: Food and/or Nutrient Delivery: Continue Current Diet Nutrition Education/Counseling: Survival skills/brief education completed Coordination of Nutrition Care: Coordination of Community Care(?poss d/c to rehab, Passport referral per charting) Goals: pt will receive and tolerate adequate nutrition; pt will not have unintended wt change Nutrition Monitoring and Evaluation: Food/Nutrient Intake Outcomes: Food and Nutrient Intake Physical Signs/Symptoms Outcomes: Biochemical Data, Chewing or Swallowing, Nausea or Vomiting, Fluid Status or Edema, Hemodynamic Status, Nutrition Focused Physical Findings, Skin, Weight Discharge Planning: Continue current diet Contact: [id number] * Fariba Francisco, CONTACT [employer] OPERATOR - PRESIDENT & CEO - 10/17/2019 10:13 AM EDT CARDIOLOGY PROGRESS NOTE Chart and interval events reviewed. Reason for Visit heart failure with preserved EF SUBJECTIVE: James Jones is awake in bed. Denies chest pain or palpitations. SOB has improved. Denies orthopnea. Edema improved. C/o feeling weak and doesn't believe he will be able to go back home. (resideswith multiple people). SCHEDULED MEDICATIONS: spironolactone 25 mg Oral Daily torsemide 20 mg Oral Daily doxazosin 4 mg Oral Nightly carvedilol 25 mg Oral BID WC potassium chloride 20 mEq Oral Daily with breakfast lisinopril 10 mg Oral Daily amLODIPine 5 mg Oral Daily sodium chloride flush 3 mL Intravenous Q8H levothyroxine 50 mcg Oral Daily cetirizine 10 mg Oral Daily Magnesium Gluconate 250 mg Oral Nightly enoxaparin 40 mg Subcutaneous Daily Active Problems: New onset of congestive heart failure (HCC) CHF (congestive heart failure), NYHA class I, acute on chronic, combined (HCC) Resolved Problems: * No resolved hospital problems. * Review of Systems: Review of Systems Constitutional: Negative for chills, diaphoresis and fever. Pt states feels less SOB today compared to yesterday, complains of feeling weak Respiratory: Negative for cough, shortness of breath and wheezing. Denies PND or orthopnea Cardiovascular: Negative for chest pain, palpitations and leg swelling. Denies CP or palpitations Gastrointestinal: Negative for abdominal pain, blood in stool, constipation, diarrhea, nausea and vomiting. Genitourinary: Negative for hematuria. Neurological: Negative for dizziness and syncope. Denies dizziness or light headedness VITAL SIGNS: Vitals: 10/16/19 2342 10/17/19 0333 10/17/19 0415 10/17/19 0746 BP: (!) 147/77 (!) 155/88 (!) 159/89 Pulse: 71 76 73 Resp: 18 Temp: 97.8 F (36.6 C) 97.7 F (36.5 C) 98.4 F (36.9 C) TempSrc: Temporal Temporal Temporal SpO2: 98% 96% 98% Weight: 121 lb 12.8 oz (55.2 kg) Intake/Output Summary (Last 24 hours) at 10/17/2019 1013 Last data filed at 10/16/2019 1532 Gross per 24 hour Intake 250 ml Output 695 ml Net -445 ml Patient Vitals for the past 96 hrs (Last 3 readings): Weight 10/17/19 0415 121 lb 12.8 oz (55.2 kg) 10/16/19 0800 123 lb 9.6 oz (56.1 kg) 10/15/19 0440 126 lb 3.2 oz (57.2 kg) Physical Exam: Physical Exam Constitutional: General: He is not in acute distress. Appearance: Normal appearance. He is well-developed. He is not diaphoretic. HENT: Mouth/Throat: Pharynx: No oropharyngeal exudate. Eyes: General: No scleral icterus. Right eye: No discharge. Left eye: No discharge. Neck: Thyroid: No thyromegaly. Vascular: No JVD. Cardiovascular: Rate and Rhythm: Normal rate and regular rhythm. Chest Wall: PMI is not displaced. Pulses: Normal pulses. Heart sounds: Normal heart sounds. No murmur. No gallop. Pulmonary: Effort: No accessory muscle usage or respiratory distress. Breath sounds: Normal breath sounds. Abdominal: General: Bowel sounds are normal. There is no distension or abdominal bruit. Palpations: Abdomen is soft. There is no shifting dullness or hepatomegaly. Tenderness: There is no abdominal tenderness. Musculoskeletal: Normal range of motion. Skin: General: Skin is warm and dry. Neurological: Mental Status: He is alert and oriented to person, place, and time. Data: Scheduled Meds: Reviewed Continuous Infusions: CBC: Recent Labs 10/16/19 0416 WBC 4.5 HGB 11.1* HCT 33.6* PLT 184 BMP: Recent Labs 10/16/19 0824 10/17/19 0456 NA 138 137 K 3.4* 3.1* CL 97* 100 CO2 30 29 BUN 23* 25* CREATININE 1.75* 1.65* INR:No results for input(s): INR in the last 72 hours. No results for input(s): BNP in the last 72 hours. TSH: Lab Results Component Value Date TSH 3.245 10/15/2019 Cardiac Injury Profile: Recent Labs 10/14/19 1619 10/15/19 0447 10/15/19 1307 TROPONINI 0.034 0.048* 0.036* Lipid Profile: Lab Results Component Value Date TRIG 128 10/14/2019 HDL 40 10/14/2019 CHOL 131 10/14/2019 EKG: See Report Telemetry Reviewed: SR. Echo: 10/15/2019- SUMMARY: 1. Left ventricle: The cavity size is normal. Wall thickness is moderately increased. Systolic function is normal by visual assessment. The estimated ejection fraction is 55%. 2. Aortic valve: Trileaflet; mildly calcified leaflets. There is no regurgitation. IMPRESSIONS/RECOMMENDATIONS: 1. Heart failure with preserved EF- dyspnea continues to improve. Euvolemic on examination. Change from IV diuretic to oral today. - weight down 2 pounds overnight. - I educated regarding the importance of daily weights, and a low sodium diet. -placed on low sodium diet -spironolactone added today -likely d/c from our standpoint tomorrow if stable. 2. Hypertension- improved - recent addition of amlodipine 5 mg daily and lisinopril 10 mg daily - metoprolol tartrate 100 mg twice daily changed to Coreg 25 mg twice daily - please recheck BP post med pass this am. May need further increase in Amlodipine. 3. Renal insuffiencey- creatinine mildly elevated - as outlined above IV lasix changed to oral Demadex, will continue to monitor. 4. Hypokalemia: -replacement K+ given and added spironolactone. 5. Weakness: per primary team 6. Disp- f/u appointment arranged with Gabby KELLER 10/23/2019 at 2:30 pm. Electronicallysigned by GREG Patel CNP on 10/17/2019 at 10:13 AM * Shravan Solorio MD - 10/17/2019 8:00 AM EDT James Jones is a 74 y.o. male patient. Current Facility-Administered Medications Medication Dose Route Frequency Provider Last Rate Last Dose potassium chloride (KLOR-CON M) extended release tablet 20 mEq 20 mEq Oral Once GREG Patel CNP torsemide (DEMADEX) tablet 20 mg 20 mg Oral Daily GREG Madrid CNP doxazosin (CARDURA) tablet 4 mg 4 mg Oral Nightly Shravan Solorio MD 4 mg at 10/16/192022 carvedilol (COREG) tablet 25 mg 25 mg Oral BID GREG Madrid CNP 25 mg at 10/16/191722 potassium chloride (KLOR-CON M) extended release tablet 20 mEq 20 mEq Oral Daily with breakfast GREG Madrid CNP 20 mEq at 10/16/19 0811 polyvinyl alcohol (LIQUIFILM TEARS) 1.4 % ophthalmic solution 1 drop 1 drop Both Eyes TID PRN Shravan Solorio MD 1 drop at 10/16/19 0812 lisinopril (PRINIVIL;ZESTRIL) tablet 10 mg 10 mg Oral Daily Shravan Carranza MD 10 mg at 10/16/19 0811 amLODIPine (NORVASC) tablet 5 mg 5 mg Oral Daily Shravan Carranza MD 5 mg at 10/16/19 0811 acetaminophen (TYLENOL) tablet 500 mg 500 mg Oral Q6H PRN Shravan Solorio MD Or acetaminophen (TYLENOL) tablet 1,000 mg 1,000 mg Oral Q6H PRN Shravan Solorio MD 1,000 mg at 10/16/19 1437 sodium chloride flush 0.9 % injection 3 mL 3 mL Intravenous Q8H Sumit Monroy MD 3 mL at 10/16/19 0813 levothyroxine (SYNTHROID) tablet 50 mcg 50 mcg Oral Daily Shravan Solorio MD 50 mcg at 10/17/19 0456 cetirizine (ZYRTEC) tablet 10 mg 10 mg Oral Daily Shravan Solorio MD 10 mg at 10/16/19 0811 Magnesium Gluconate tablet 250 mg 250 mg Oral Nightly Shravan Solorio MD 250 mg at 10/16/192022 sodium chloride flush 0.9 % injection 10 mL 10 mL Intravenous PRN Shravan Solorio MD enoxaparin (LOVENOX) injection 40 mg 40 mg Subcutaneous Daily Shravan Solorio MD 40 mg at 10/16/19 0810 clonazePAM (KLONOPIN) tablet 1 mg 1 mg Oral Nightly PRN Shravan Solorio MD 1 mg at 10/14/192204 Allergies Allergen Reactions Codeine Hydroxyzine Percocet [Oxycodone-Acetaminophen] Vicodin [Hydrocodone-Acetaminophen] Active Problems: New onset of congestive heart failure (HCC) CHF (congestive heart failure), NYHA class I, acute on chronic, combined (HCC) Resolved Problems: * No resolved hospital problems. * Blood pressure (!) 159/89, pulse 73, temperature 98.4 F (36.9 C), temperature source Temporal, resp. rate 18, weight 121 lb 12.8 oz (55.2 kg), SpO2 98 %. Subjective: Symptoms: Improved. He reports weakness. No shortness of breath, chest pain, chest pressure or anxiety. Diet: Adequate intake. Activity level: Impaired due to weakness. Pain: He reports no pain. Objective: Vital signs: (most recent): Blood pressure (!) 159/89, pulse 73, temperature 98.4 F (36.9 C), temperature source Temporal, resp. rate 18, weight 121 lb 12.8 oz (55.2 kg), SpO2 98 %. (Improved BP). Output: Producing urine. HEENT: Normal HEENT exam. Lungs: Normal effort and normal respiratory rate. Breath sounds clear to auscultation. Heart: Normal rate. Regular rhythm. S1 normal. Abdomen: Abdomen is soft. There is no abdominal tenderness. Extremities: Normal range of motion. Neurological: Patient is alert and oriented to person, place and time. Assessment: (Weakness Dementia ? Ability to care for self). Plan: Encourage ambulation and per physical therapy. Consults: physical therapy and occupational therapy.Regular diet. (Patient wants to stay in hospital until stronger, ECF advised, ...). SHRAVAN SOLORIO MD 10/17/2019 * Mari Tirado, CONTACT [employer] OPERATOR - PRESIDENT & CEO - 10/16/2019 10:22 AM EDT CARDIOLOGY PROGRESS NOTE Chart and interval events reviewed. Reason for Visit heart failure with preserved EF SUBJECTIVE: James Jones states feeling a little less SOB compared to admission. Pt denies CP or palpitations. He complains of feeling weak. Pt complaining of urinary frequency and urgency. SCHEDULED MEDICATIONS: doxazosin 4 mg Oral Nightly carvedilol 25 mg Oral BID WC potassium chloride 20 mEq Oral Daily with breakfast furosemide 80 mg Intravenous BID lisinopril 10 mg Oral Daily amLODIPine 5 mg Oral Daily sodium chloride flush 3 mL Intravenous Q8H levothyroxine 50 mcg Oral Daily cetirizine 10 mg Oral Daily Magnesium Gluconate 250 mg Oral Nightly enoxaparin 40 mg Subcutaneous Daily Active Problems: New onset of congestive heart failure (HCC) CHF (congestive heart failure), NYHA class I, acute on chronic, combined (HCC) Resolved Problems: * No resolved hospital problems. * Review of Systems: Review of Systems Constitutional: Negative for chills, diaphoresis and fever. Pt states feels less SOB today compared to yesterday, complains of feeling weak Respiratory: Negative for cough, shortness of breath and wheezing. Denies PND or orthopnea Cardiovascular: Negative for chest pain, palpitations and leg swelling. Denies CP or palpitations Gastrointestinal: Negative for abdominal pain, blood in stool, constipation, diarrhea, nausea and vomiting. Genitourinary: Negative for hematuria. Neurological: Negative for dizziness and syncope. Denies dizziness or light headedness VITAL SIGNS: Vitals: 10/15/19 2353 10/16/19 0348 10/16/19 0800 10/16/19 0810 BP: (!) 158/95 (!) 165/99 (!) 147/105 Pulse: 73 72 83 Resp: 18 18 16 Temp: 97.4 F (36.3 C) 98.1 F (36.7 C) 97.9 F (36.6 C) TempSrc: Temporal Temporal Temporal SpO2: 96% 96% 97% Weight: 123 lb 9.6 oz (56.1 kg) Intake/Output Summary (Last 24 hours) at 10/16/2019 1022 Last data filed at 10/16/2019 0810 Gross per 24 hour Intake 243 ml Output 2100 ml Net -1857 ml Patient Vitals for the past 96 hrs (Last 3 readings): Weight 10/16/19 0800 123 lb 9.6 oz (56.1 kg) 10/15/19 0440 126 lb 3.2 oz (57.2 kg) 10/14/19 1414 126 lb (57.2 kg) Physical Exam: Physical Exam Constitutional: General: He is not in acute distress. Appearance: Normal appearance. He is well-developed. He is not diaphoretic. HENT: Mouth/Throat: Pharynx: No oropharyngeal exudate. Eyes: General: No scleral icterus. Right eye: No discharge. Left eye: No discharge. Neck: Thyroid: No thyromegaly. Vascular: No JVD. Cardiovascular: Rate and Rhythm: Normal rate and regular rhythm. Chest Wall: PMI is not displaced. Pulses: Normal pulses. Heart sounds: Normal heart sounds. No murmur. No gallop. Pulmonary: Effort: No accessory muscle usage or respiratory distress. Breath sounds: Normal breath sounds. 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 There is no distension or abdominal bruit. Palpations: Abdomen is soft. There is no shifting dullness or hepatomegaly. Tenderness: There is no abdominal tenderness. Musculoskeletal: Normal range of motion. Comments: Trace edema present BLE, knees down Skin: General: Skin is warm and dry. Neurological: Mental Status: He is alert and oriented to person, place, and time. Data: Scheduled Meds: Reviewed Continuous Infusions: CBC: Recent Labs 10/14/19 1001 10/16/19 0416 WBC 5.0 4.5 HGB 11.9* 11.1* HCT 36.3* 33.6* PLT 142 184 BMP: Recent Labs 10/16/19 0416 10/16/19 0824 NA 133* 138 K 4.1 3.4* CL 98 97* CO2 27 30 BUN 25* 23* CREATININE 1.68* 1.75* INR:No results for input(s): INR in the last 72 hours. No results for input(s): BNP in the last 72 hours. TSH: Lab Results Component Value Date TSH 3.245 10/15/2019 Cardiac Injury Profile: Recent Labs 10/14/19 1619 10/15/19 0447 10/15/19 1307 TROPONINI 0.034 0.048* 0.036* Lipid Profile: Lab Results Component Value Date TRIG 128 10/14/2019 HDL 40 10/14/2019 CHOL 131 10/14/2019 EKG: See Report Telemetry Reviewed: SR- 75 bpm. Echo: 10/15/2019- SUMMARY: 1. Left ventricle: The cavity size is normal. Wall thickness is moderately increased. Systolic function is normal by visual assessment. The estimated ejection fraction is 55%. 2. Aortic valve: Trileaflet; mildly calcified leaflets. There is no regurgitation. IMPRESSIONS/RECOMMENDATIONS: 1. Heart failure with preserved EF- dyspnea improving - weight down 3 lbs and 2 liters overnight - will discontinue IV lasix and start Demadex 20 mg daily - I educated regarding the importance of daily weights, and a low sodium diet. 2. Hypertension- improved - amlodipine 5 mg daily and lisinopril 10 mg daily added yesterday - metoprolol tartrate 100 mg twice daily changed to Coreg 25 mg twice daily 3. Renal insuffiencey- creatinine mildly elevated - as outlined above IV lasix changed to oral Demadex, will continue to monitor. 4. Disp- f/u appointment arranged with Gabby KELLER 10/23/2019 at 2:30 pm. Electronicallysigned by GREG Madrid CNP on 10/16/2019 at 10:22 AM * Shravan Solorio MD - 10/16/2019 8:00 AM EDT James Jones is a 74 y.o. male patient. Current Facility-Administered Medications Medication Dose Route Frequency Provider Last Rate Last Dose doxazosin (CARDURA) tablet 4 mg 4 mg Oral Nightly Shravan Solorio MD 4 mg at 10/15/192000 carvedilol (COREG) tablet 25 mg 25 mg Oral BID WC GREG Madrid CNP 25 mg at 10/15/191999 potassium chloride (KLOR-CON M) extended release tablet 20 mEq 20 mEq Oral Daily with breakfast GREG Madrid CNP polyvinyl alcohol (LIQUIFILM TEARS) 1.4 % ophthalmic solution 1 drop 1 drop Both Eyes TID PRN Shravan Solorio MD 1 drop at 10/15/19 1346 furosemide (LASIX) injection 80 mg 80 mg Intravenous BID Shravan Carranza MD 80 mg at 10/15/19 1814 lisinopril (PRINIVIL;ZESTRIL) tablet 10 mg 10 mg Oral Daily Shravan Carranza MD 10 mg at 10/15/19 1558 amLODIPine (NORVASC) tablet 5 mg 5 mg Oral Daily Shravan Carranza MD 5 mg at 10/15/19 1558 acetaminophen (TYLENOL) tablet 500 mg 500 mg Oral Q6H PRN Shravan Solorio MD Or acetaminophen (TYLENOL) tablet 1,000 mg 1,000 mg Oral Q6H PRN Shravan Solorio MD 1,000 mg at 10/15/19 1900 sodium chloride flush 0.9 % injection 3 mL 3 mL Intravenous Q8H Sumit Monroy MD 3 mL at 10/15/192000 levothyroxine (SYNTHROID) tablet 50 mcg 50 mcg Oral Daily Shravan Solorio MD 50 mcg at 10/16/19 0408 cetirizine (ZYRTEC) tablet 10 mg 10 mg Oral Daily Shravan Solorio MD Magnesium Gluconate tablet 250 mg 250 mg Oral Nightly Shravan Solorio MD 250 mg at 10/15/192000 sodium chloride flush 0.9 % injection 10 mL 10 mL Intravenous PRN Shravan Solorio MD enoxaparin (LOVENOX) injection 40 mg 40 mg Subcutaneous Daily Shravan Solorio MD 40 mg at 10/15/19 0816 clonazePAM (KLONOPIN) tablet 1 mg 1 mg Oral Nightly PRN Shravan Solorio MD 1 mg at 10/14/192204 Allergies Allergen Reactions Codeine Hydroxyzine Percocet [Oxycodone-Acetaminophen] Vicodin [Hydrocodone-Acetaminophen] Active Problems: New onset of congestive heart failure (HCC) CHF (congestive heart failure), NYHA class I, acute on chronic, combined (HCC) Resolved Problems: * No resolved hospital problems. * Blood pressure (!) 165/99, pulse 72, temperature 98.1 F (36.7 C), temperature source Temporal, resp. rate 18, weight 126 lb 3.2 oz (57.2 kg), SpO2 96 %. Subjective: Symptoms: (Notes muscle cramping and nocturia). Diet: Adequate intake. Activity level: Normal. Pain: He complains of pain that is mild. Objective: Vital signs: (most recent): Blood pressure (!) 165/99, pulse 72, temperature 98.1 F (36.7 C), temperature source Temporal, resp. rate 18, weight 126 lb 3.2 oz (57.2 kg), SpO2 96 %. (Elevated BP). HEENT: Normal HEENT exam. Lungs: Normal effort and normal respiratory rate. Breath sounds clear to auscultation. Heart: Normal rate. Regular rhythm. S1 normal. Abdomen: Abdomen is soft. There is no abdominal tenderness. Extremities: Normal range of motion. Assessment: (Dementia Hypertensive urgency). Plan: Encourage ambulation. Consults: social director and cardiology. Regular diet. SHRAVAN SOLORIO MD 10/16/2019 * Sana Ku DTR - 10/16/2019 7:20 AM EDT Nutrition rescreen completed. Pt referred to RD. documented in this encounter* Reymundo Poon, RD, LD - 10/24/2019 10:08 AM EDT Comprehensive Nutrition Assessment Type and Reason for Visit: Initial, Positive Nutrition Screen Nutrition Recommendations/Plan: 1. Modified diet per MNT protocol to Dental soft, 3-4g EDUAR, low Potassium diet. Pt has a preferencefor ground meats due to poor dentition. 2. K+ trending up 5.5 currently. 3. Will provide Ensure high protein vanilla at breakfast per MNT protocol. Ensure High Protein provides 160 kcals, 16 g protein per serving. Ensure high protein has lower K+ content than other milky Ensure supplements (150mg/serving). Will also provide Ensure clear @dinner. Ensure Clear provides 240 kcals, 8 g protein per serving. Ensure Clear does not contain potassium like other milky Ensure supplements. Discussed the rationale of ONS with patient, however pt is forgetful at times. May need reiterationagain at follow up. 4. Pt was provided with low sodium diet information last admission. Provided potassium diet information this admit due to hyperkalemia. Explained to pt that high potassium foods should be avoided/limited when potassium level is high. RD will monitor K+ levels to determine need for ongoing restriction. RD contact information provided for questions/concerns. 5. Monitor intakes, wts, and labs. RD will follow. Nutrition Assessment: Pt admit with CP- pt was just discharged recently from [facility] and went to [facility]. Pt states that he intends on going back to [place] since all of his belongings are still there. Pt does not have his glasses here. Pt is very pleasant but forgetful so it's difficult to provide pt with education or explain rationale at times. Malnutrition Assessment: Malnutrition Status: Severe malnutrition Context: Chronic Illness Findings of the 6 clinical characteristics of malnutrition: Energy Intake: 7 - 75% or less estimated energy requirements for 1 month or longer(Suspect insufficient intake 2/2 ongoing weight loss and inability to achieve healthy wt) Weight Loss: Body Fat Loss: 7 - Severe body fat loss Orbital Muscle Mass Loss: 7 - Severe muscle mass loss Temples (temporalis), Clavicles (pectoralis & deltoids) Fluid Accumulation: No significant fluid accumulation Sample Hand Strength: Not Performed Estimated Daily Nutrient Needs: Energy (kcal): 0401-3981 kcals; Weight Used for Energy Requirements: Admission(56kg) Protein (g): 45-56; Weight Used for Protein Requirements: Admission(0.8-1 (worsening renal function)) Fluid (ml/day): 1680 ml/day or per MD; Weight Used for Fluid Requirements: Admission Nutrition Related Findings: no edema; 15% wt loss in 7 months based on CBW 123# and wt of 145# (02/2019), K+ 5.5 from 5.4, 4.7, BUN 82, Cr 2.29, GFR 27.0, Troponin 0.018, Nt pro BNP 292, Hgb 11.8, Hct 35.7, albumin 4.2 Wounds: None Current Nutrition Therapies: Dietary Nutrition Supplements: Low Volume Supplement, Clear Liquid Oral Supplement DIET DENTAL SOFT; No Added Salt (3-4 GM); Low Potassium Anthropometric Measures: Height: 5' 2 (157.5 cm) Current Body Weight: 123 lb (55.8 kg) Admission Body Weight: 123 lb (55.8 kg) Usual Body Weight: 145 lb (65.8 kg)(03/08/19) [place] Body Weight: 118 lbs; % [place] Body Weight BMI: 22.5 Adjusted Body Weight: ; No Adjustment Adjusted BMI: BMI Categories: Normal Weight (BMI 22.0 to 24.9) age over 65 Nutrition Diagnosis: Altered nutrition-related lab values related to renal dysfunction as evidenced by lab values Biting/chewing (masticatory) difficulty related to partial or complete edentulism as evidenced by poor dentition Severe malnutrition related to increase demand for energy/nutrients as evidenced by weight loss greater than or equal to 10% in 6 months, severe muscle loss, moderate loss of subcutaneous fat Nutrition Interventions: Food and/or Nutrient Delivery: Modify Current Diet, Start Oral Nutrition Supplement Nutrition Education/Counseling: Education initiated Coordination of Nutrition Care: Continued Inpatient Monitoring Goals: Pt will receive optimal nutrition with ease of mastication; Will not weigh <123#, Labs will trend towards baseline Nutrition Monitoring and Evaluation: Behavioral-Environmental Outcomes: Beliefs and Attitutes Food/Nutrient Intake Outcomes: Food and Nutrient Intake, Supplement Intake Physical Signs/Symptoms Outcomes: Biochemical Data, Chewing or Swallowing, GI Status, Fluid Status or Edema, Meal Time Behavior, Nutrition Focused Physical Findings, Skin, Weight Discharge Planning: Continue current diet, Continue Oral Nutrition Supplement Contact: [phone] * Edyta Hunt MD - 10/24/2019 9:47 AM EDT CARDIOLOGY PROGRESS NOTE Chart and interval events reviewed. SUBJECTIVE: James Jones states no further episodes of chest pain. Mildly confused this morning SCHEDULED MEDICATIONS: sodium chloride flush 3 mL Intravenous Q8H amLODIPine 10 mg Oral Daily carvedilol 25 mg Oral BID WC doxazosin 4 mg Oral Nightly levothyroxine 50 mcg Oral Daily [Held by provider] lisinopril 10 mg Oral Daily cetirizine 5 mg Oral Daily spironolactone 25 mg Oral Daily enoxaparin 30 mg Subcutaneous Daily magnesium oxide 400 mg Oral Nightly hydrALAZINE 50 mg Oral 3 times per day Active Problems: Chest pain, unspecified Chest pain Resolved Problems: * No resolved hospital problems. * Review of Systems: Review of Systems Constitutional: Negative for chills, diaphoresis and fever. HENT: Negative for nosebleeds. Eyes: Negative for visual disturbance. Respiratory: Negative for cough, shortness of breath and wheezing. Cardiovascular: Negative for chest pain, palpitations and leg swelling. Gastrointestinal: Negative for abdominal pain, blood in stool, constipation, diarrhea, nausea and vomiting. Genitourinary: Negative for hematuria. Musculoskeletal: Negative for myalgias. Skin: Negative for rash. Neurological: Negative for dizziness and syncope. Hematological: Does not bruise/bleed easily. Psychiatric/Behavioral: Negative for dysphoric mood and suicidal ideas. Denies Depression VITAL SIGNS: Vitals: 10/23/19 1931 10/23/19 2331 10/24/19 0259 10/24/19 0735 BP: 132/79 102/63 (!) 113/50 131/76 Pulse: 77 68 74 83 Resp: 18 18 16 16 Temp: 97.4 F (36.3 C) 97.2 F (36.2 C) 97.2 F (36.2 C) 97.2 F (36.2 C) TempSrc: Temporal Temporal Temporal Temporal SpO2: 98% 97% 93% 96% Weight: Height: Intake/Output Summary (Last 24 hours) at 10/24/2019 0948 Last data filed at 10/23/2019 1300 Gross per 24 hour Intake 500 ml Output Net 500 ml Patient Vitals for the past 96 hrs (Last 3 readings): Weight 10/23/19 1342 123 lb 1.6 oz (55.8 kg) 10/23/19 0720 123 lb (55.8 kg) Physical Exam: Physical Exam Constitutional: Appearance: He is well-developed. HENT: Head: Normocephalic and atraumatic. Eyes: General: Lids are normal. Conjunctiva/sclera: Conjunctivae normal. Pupils: Pupils are equal, round, and reactive to light. Neck: Musculoskeletal: Normal range of motion and neck supple. Thyroid: No thyroid mass or thyromegaly. Vascular: No carotid bruit or JVD. Trachea: Trachea normal. Cardiovascular: Rate and Rhythm: Normal rate and regular rhythm. Chest Wall: PMI is not displaced. Pulses: No decreased pulses. Dorsalis pedis pulses are 2+ on the right side and 2+ on the left side. Posterior tibial pulses are 2+ on the right side and 2+ on the left side. Heart sounds: Normal heart sounds. No murmur. No systolic murmur. No diastolic murmur. No friction rub. No gallop. Pulmonary: Effort: Pulmonary effort is normal. No respiratory distress. Breath sounds: Normal breath sounds. No stridor. No decreased breath sounds, wheezing, rhonchi or rales. Chest: Chest wall: No tenderness. Abdominal: General: Bowel sounds are normal. There is no distension. Palpations: Abdomen is soft. There is no hepatomegaly or splenomegaly. Tenderness: There is no abdominal tenderness. Musculoskeletal: Normal range of motion. General: No tenderness. Right lower le+ Edema present. Left lower le+ Edema present. Skin: General: Skin is warm and dry. Capillary Refill: Capillary refill takes less than 2 seconds. Findings: No rash. Neurological: Mental Status: He is alert and oriented to person, place, and time. Psychiatric: Behavior: Behavior normal. Thought Content: Thought content normal. Data: Scheduled Meds: Reviewed Continuous Infusions: CBC: Recent Labs 10/23/19 0813 WBC 5.4 HGB 11.8* HCT 35.7* PLT 158 BMP: Recent Labs 10/23/19 0813 10/24/19 0445 NA 137 137 K 5.4* 5.5* CL 102 104 CO2 26 24 BUN 80* 82* CREATININE 2.48* 2.29* INR:No results for input(s): INR in the last 72 hours. No results for input(s): BNP in the last 72 hours. TSH: Lab Results Component Value Date TSH 3.245 10/15/2019 Cardiac Injury Profile: Recent Labs 10/23/19 1009 10/23/19 2147 10/24/19 0445 TROPONINI <0.012 <0.012 0.018 Lipid Profile: Lab Results Component Value Date TRIG 128 10/14/2019 HDL 40 10/14/2019 CHOL 131 10/14/2019 EKG: See Report Telemetry Reviewed: Normal sinus rhythm Echo: 10/14/2019 FINDINGS LEFT VENTRICLE: Average LV global longitudinal strain is -16. The cavity size is normal. Wall thickness is moderately increased. Systolic function is normal by visual assessment. The estimated ejection fraction is 55%. There are no regional wall motion abnormalities. RIGHT VENTRICLE: The cavity size is normal. Systolic function is normal. Right ventricular systolic pressure is within the normal range. VENTRICULAR SEPTUM: There is no evidence of a ventricular septal defect. LEFT ATRIUM: The atrium is normal in size. RIGHT ATRIUM: The atrium is normal in size. ATRIAL SEPTUM: Color Doppler shows no shunt. MITRAL VALVE: Structurally normal valve. Doppler: There is no regurgitation. AORTIC VALVE: Trileaflet; mildly calcified leaflets. Doppler: There is no stenosis. There is no regurgitation. Dimensionless index: 0.71. The valve area by the velocity-time integral method is 2.7 cm^2. The valve area index by the velocity-time integral method is 1.7 cm^2/m^2. The mean systolic gradient is 2 mm Hg. The peak systolic gradient is 5 mm Hg. The peak systolic velocity is 1 m/sec. TRICUSPID VALVE: Structurally normal valve. Doppler: There is no significant regurgitation. PULMONIC VALVE: Structurally normal valve. Doppler: There is no regurgitation. AORTA: The aorta is normal. PULMONARY ARTERY: Main pulmonary artery: Normal. PERICARDIUM: There is no pericardial effusion. SYSTEMIC VEINS: Inferior vena cava: The vessel is normal. The IVC collapses by greater than 50% with inspiration. IMPRESSIONS/RECOMMENDATIONS: -Chest pain-noncardiac. cardiac troponins 3 negative and no electrocardiogram changes consistent with ischemia. Chest pain related to uncontrolled blood pressure. Continue carvedilol 25 b.i.d. -Heart failure with preserved ejection fraction NYHA class II stage C. without evidence of decompensation. Continue carvedilol 25 b.i.d. Hold lisinopril and spironolactone due to hyperkalemia. continue vasodilator therapy with hydralazine 50 t.i.d. Daily weights. Salt restricted diet. -Acute kidney injury on chronic kidney -some improvement noted today. still hyperkalemic as he did get a dose of spironolactone yesterday. Hold RAAS inhibitor and MRA and diuretics. Avoid nephrotoxins. Obtain renal ultrasound. -Hypertension. much improved. Continue carvedilol 25 b.i.d. and hydralazine 50 t.i.d. Low-salt dietas above. -Dementia Electronicallysigned by Edyta Hunt MD on 10/24/2019 at 9:48 AM * Lona Hollis RN - 10/23/2019 8:08 PM EDT Updated SNF of pt status/ reason for readmission. Talked to Yasemin @ 2008. 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 Latest Code Status on File Code Status Date Activated Date Inactivated Comments DNR-CCA 10/21/2019 9:57 AM Latest Code Status on File Code Status Date Activated Date Inactivated Comments DNR-CCA 10/21/2019 9:57 AM 10/22/2019 5:04 PM Summary Purpose Family History No Family History Records FoundNo Family History Records FoundNo Family History Records Found Additional Source Comments Reason for Visit (unrecogniz ed section and content) Reason Comments Chest Pain Reason Comments Hypertension Chest Pain Dizziness Reason Comments 1 Year Follow-up Congestive Heart Failure (unrecognized sect ion and content) No Status Records FoundNo Status Records FoundNo Status Records Found INFORMATION SOURCE (unrecogn ized section and content) DATE CREATED AUTHOR AUTHOR'S JENIFER SAHA 11/10/2022 [facility] Care Teams (unrecognized sec tion and content) FOR RECORDS PERTAINING TO PATIENTS WHO ARE OR HAVE BEEN ENROLLED IN A CHEMICAL DEPENDENCY/SUBSTANCEABUSE PROGRAM, SOME INFORMATION MAY BE OMITTED. This clinical summary was aggregated from multiple sources. Caution should be exercised in using it in the provision of clinical care. This summary normalizes information from multiple sources, and as a consequence, information in this document may materially change the coding, format and clinical context of patient data. In addition, data may be omitted in some cases. CLINICAL DECISIONS SHOULD BE BASED ON THE PRIMARY CLINICAL RECORDS. [facility]. provides no warranty or guarantee of the accuracy or completeness of information in this document.
[2023-03-13 08:46] LABS: Hematocrit 31.2 % (40-54); Mean Corp Hgb Conc 32.1 g/dL (32-36); Mean Corpuscular Hgb 32.1 pg (27.0-32.0); Mean Platelet Vol. 11.2 fl (6.2-12.0); Platelet Count 147 K/mm3 (150-450); RBC Distribution Width CV 12.9 % (11.6-14.6); RBC Distribution Width SD 47.8 fl (35.1-43.9); Red Blood Count 3.12 M/mm3 (4.6-6.2)
== END ==
LOC: OLS.SANC 05:00
PROVIDERS: Visit Provider Internal Medicine
DX: D64.9 Anemia, unspecified (principal); I10 Essential (primary) hypertension; E78.5 Hyperlipidemia, unspecified
CPT/HCPCS: 36415; 85027

== ENCOUNTER → 2023-04-13 | Outpatient (REF) | payer MEDICARE, MEDICAID, SELFPAY ==
--- OUTSIDE RECORDS SUMMARY | 2023-04-13 05:15 | XMS RPT_ITS | CCD ---
Author Name Unknown Address [address] [place] [address] Organization [facility] Care Team Providers Care Disease Management Nurse Name Role Phone Shravan Solorio Primary Care Provider Unavailable Primary Care Provider [facility] PROVIDER, UNKNOWN Referring Unavailable Stephanie Whitlock [...] sources) Acetaminophen / HYDROcodone Drug Allergy 03-08-2019 [employer] Work Phone: (3 sources) Acetaminophen / oxyCODONE Drug Allergy 03-08-2019 [employer] Work Phone: (4 sources) Codeine Drug Allergy 03-08-2019 [employer] Work Phone: (4 sources) hydrOXYzine Drug Allergy 03-08-2019 [employer] Work Phone: (1 source) HYDROcodone Drug Allergy 01-21-2022 [employer] (1 source) oxyCODONE Drug Allergy 01-21-2022 [employer] [facility] Medications Current Medications Medication Drug Class(es) Dates [...] aftercare (1 source) Polypharmacy ; Translations: [Other senior care (current) drug therapy] Onset: 01-23-2022 01-23-2022 Episodic Results Test Name Value Interpretation Reference Range Facil ity Vital Signs Date Time Vital Sign Value Performing Clinician Faci lity 11-08-2022 14:07-0400 Body height 157.5 cm Shravan Carranza MD Work Phone: [facility] 11-08-2022 14:07-0400 Body mass index (BMI) [Ratio] 24.07 kg/m2 Shravan Carranza MD Work Phone: [facility] 11-08-2022 14:07-0400 Body weight 59.69 kg Shravan Carranza MD Work Phone: [facility] 11-08-2022 14:07-0400 Diastolic blood pressure 54 mm[Hg] Shravan Carranza MD Work Phone: [employer] [facility] 11-08-2022 14:07-0400 Heart rate 55 /min Shravan Carranza MD Work Phone: [employer] [facility] 11-08-2022 14:07-0400 Respiratory rate 16 /min Shravan Carranza MD Work Phone: [facility] 11-08-2022 14:07-0400 SaO2% (BldA) [Mass fraction] 95 % Shravan Carranza MD Work Phone: [facility] 11-08-2022 14:07-0400 Systolic blood pressure 96 mm[Hg] Shravan Carranza MD Work Phone: [facility] 10-24-2019 19:35-0400 Body Temperature 97.7 [degF] [facility] [place] 10-24-2019 19:35-0400 BP Diastolic 70 mm[Hg] [facility] , [place] 10-24-2019 19:35-0400 BP Systolic 109 mm[Hg] [facility] , [place] 10-24-2019 19:35-0400 Pulse (Heart Rate) 96 /min [facility], [place] 10-24-2019 19:35-0400 Pulse Oximetry 97 % [facility] , [place] 10-24-2019 19:35-0400 Respiratory Rate 18 /min [facility], [place] 10-23-2019 13:42-0400 BMI (Body Mass Index) 22.52 kg/m2 [facility], [place] 10-23-2019 13:42-0400 Body weight 55.84 kg [facility] , [place] 10-23-2019 07:28-0400 Height 157.5 cm [facility] , [place] 10-22-2019 08:09-0400 Body Temperature 97.3 [degF] [facility] [place] 10-22-2019 08:09-0400 BP Diastolic 65 mm[Hg] [facility] , [place] 10-22-2019 08:09-0400 BP Systolic 118 mm[Hg] [facility] , [place] 10-22-2019 08:09-0400 Pulse (Heart Rate) 77 /min [facility], [place] 10-22-2019 08:09-0400 Pulse Oximetry 96 % [facility] , [place] 10-22-2019 08:09-0400 Respiratory Rate 18 /min [facility] [place] 10-22-2019 04:08-0400 BMI (Body Mass Index) 23.67 kg/m2 Sumit Fontenot [facility] [place] 10-22-2019 04:08-0400 Body weight 58.7 kg Sumit [facility] [place] 10-17-2019 11:17-0400 Height 157.5 cm Sumit Monroy [facility] [place] Encounters Encounter Date Encounter Type Care Provider Facility Start: 11-08-2022 End: 11-08-2022 ambulatory SHRAVAN CARRANZA [facility] Start: 11-08-2022 End: 11-08-2022 Office outpatient visit 15 minutes Shravan Carranza MD Work Phone: [facility] Cardiology Procedures Date Procedure Procedure Detail [...] Author Start: 01-23-2027 Lipid panel Lipid Panel [facility] Start: 10-13-2024 Lipid panel Lipid screen [facility], [place] Start: 11-12-2023 End: 11-12-2023 Patient encounter procedure 11/12/2023 2:00 PM EDT Office Visit [facility] Cardiology [address] [place] [address] Shravan Carranza MD [address] [place] [address] [facility] Start: 03-14-2023 Thyroid stimulating hormone measurement TSH Level [facility] Start: 01-24-2023 Creatinine measurement Creatinine Level [facility] Start: 01-24-2023 Echocardiography Echocardiogram [facility] Start: 01-24-2023 Potassium measurement Potassium Level [facility] Start: 11-24-2022 Influenza vaccination Influenza Vaccine (#1) [facility] Start: 08-26-2021 COVID-19 Vaccine (4 - Booster for Pfizer series) COVID-19 Vaccine (4 - Booster for Pfizer series) [facility] Start: 10-23-2020 Creatinine measurement Creatinine monitoring [facility], [place] Start: 10-23-2020 Potassium monitoring Potassium monitoring [place], [place] Start: 10-21-2020 Creatinine measurement Creatinine monitoring [facility], [place] Start: 10-21-2020 Potassium monitoring Potassium monitoring [place], [place] Start: 11-25-2019 Influenza vaccination Flu vaccine (#1) [place], [place] Start: 11-07-2019 End: 11-07-2019 Office Visit 11/07/2019 Office Visit Cardiology Mari Tirado, REAL ESTATE SERVICES ADMINISTRATOR - [place] [employer] [address] [place] [address] [phone] [facility] Start: 11-06-2019 End: 11-06-2019 Office Visit 11/06/2019 Office Visit Cardiology Gabby Colorado PA-C [address] [place] [address] [phone] [facility] Start: 10-15-2019 Annual Wellness Visit (AWV) Annual Wellness Visit (AWV) [place], [place] Start: 01-25-2019 Pneumococcal Vaccine: 65+ Years (2 - PCV) Pneumococcal Vaccine: 65+ Years (2 - PCV) [facility] Start: 11-24-2018 Influenza vaccination Flu vaccine (#1) [facility] Work Phone: Start: 08-17-2018 DTaP/Tdap/Td Vaccines (1 - Tdap) DTaP/Tdap/Td Vaccines (1 - Tdap) [facility] Start: 2010 Pneumococcal 65+ years Vaccine (1 of 1 - PPSV23) Pneumococcal 65+ years Vaccine (1 of 1 - PPSV23) [facility] Work Phone: Start: 1995 Colon cancer screen colonoscopy Colon cancer screen colonoscopy [facility] Work Phone: Start: 1995 Screening for malignant neoplasm of colon Colon cancer screen colonoscopy [place], [place] Start: 1995 Shingles Vaccine (1 of 2) Shingles Vaccine (1 of 2) [facility] Work Phone: Start: 1995 Zoster Vaccines (1 of 2) Zoster Vaccines (1 of 2) [facility] Start: 1985 Lipid screen Lipid screen [facility] Work Phone: Start: 1964 DTaP/Tdap/Td vaccine (1 - Tdap) DTaP/Tdap/Td vaccine (1 - Tdap) [place], [place] Start: 1963 Hepatitis C screening Hepatitis C Screening [facility] Start: 1957 Depression Screening Depression Screening [facility] Start: 1956 DTaP/Tdap/Td vaccine (1 - Tdap) DTaP/Tdap/Td vaccine (1 - Tdap) [facility] Work Phone: Start: 1945 AAA screen AAA screen [facility] Work Phone: Start: 1945 Abdominal aortic aneurysm screening AAA screen [place], [place] Start: 1945 Hepatitis C screen Hepatitis C screen [facility] Work Phone: Start: 1945 Hepatitis C screening Hepatitis C screen [place], [place] Start: 1945 Medicare Annual Wellness (AWV) Medicare Annual Wellness (AWV) [facility] Basic metabolic 2000 panel [place], [place] Immunizations Immunization Date Immunization Notes Care Provider Fa cility 07-01-2021 Covid-19, Pfizer Gra y Top, Do Not Dilute, (Age 12 Y+), Colby, L Shravan Carranza MD Work Phone: [facility] 01-13-2021 Pfizer SARS-CoV-2 Vaccination Shravan Carranza MD Work Phone: [facility] 12-28-2020 influenza virus vacc ine, unspecified formulation Shravan Carranza MD Work Phone: [facility] 04-21-2020 Pfizer SARS-CoV-2 Vaccination Shravan Carranza MD Work Phone: [facility] 03-31-2020 Pfizer SARS-CoV-2 Vaccination Shravan Carranza MD Work Phone: [facility] Payers Date Payer Category Payer Medicaid [id number] 2019 Medicaid MEDICAID - [facility] [place] [id number] 2019-Present [address] [place] [address] Medicaid [id number] 2019 Medicaid [id number] 2019 Medicaid MEDICAID [facility] DEPT OF JOB [id number] 2019-Present [phone] [address] [place] [address] [id number] 2019 Medicare MEDICARE MEDICAR E PART A AND B [id number] 2019-Present [phone] [address] [address] [place] [address] [id number] 2010 Medicare 2010 Medicare [id number] 1945 Unknown [id number] Unknown Social History Date Type Detail Facility Start: 10-17-2019 End: 11-08-2022 Tobacco smoking status NHIS Former smoker [facility] Start: 10-17-2019 End: 11-08-2022 Tobacco use and exposure Never used [facility] Start: 10-17-2019 End: 11-08-2022 Alcohol intake Ex-drinker (finding) [employer] Work Phone: Start: 1945 Sex Assigned At Not on file [facility] Work Phone: Start: 10-29-2022 End: 11-08-2022 Exposure to SARS-CoV-2 (event) Not sure [facility] [place] History of tobacco use Current smoker [facility] History of tobacco use Cigarette Smoker S [facility] History of tobacco use Cigar Smoker [facility] Start: 11-08-2022 History of Social function [facility] Start: 11-08-2022 Tobacco use panel [facility] Goals Date Patient Goal Desired Activity /State Clinical Notes 01-23-2022 to 11-08-2022 Shravan Carranza MD - 11/08/2022 2:00 PM EDT Note Date & Type Note Facility 11-08-2022 History of Present illness Narrative [facility] Cardiology [facility] [address] [facility] [address] Dept: [phone] Dept Visit type: Established : 1945 Chief Complaint: Chief Complaint Patient presents with 1 Year Follow-up Congestive Heart Failure History of Present Illness: James Jones is a 77 y.o. male returns in follow-up concerning his history of heart failure with preserved systolic function. He is living in a facility. He has a medical writer with him. She states he has not [...] 3. Chronic dementia. documented in this encounter [facility] 05-19-2022 Note ADDENDUM #1 This procedure was [...] Magallanes Electronically Signed Date/Time: 03/09/2022 2:07 PM [facility] 03-09-2022 Note Ultrasound Procedure Room: James is [...] Home going instructions given. Discharge to home. [facility] 01-24-2022 Note Nutrition Assessment Type and Reason for Visit: Positive Nutrition Screen, Initial (dt referral for heart failure but pt with new cva - has confusion) Nutrition Recommendations/Plan: Suggest to continue regular diet as tolerated- may need MATERIAL HANDLER evaluation if s/s of dysphagia noted. Patient [...] assess Fluid Accumulation: No significant fluid accumulation Modern Languages Professor Strength: Not Performed Nutrition Assessment: PER MD-Subjective: Admit Date: 01/21/2022 PCP: Stephanie Whitlock Room#: B1147/B1-629 B Interval History: Presents to [facility] ED on 01/20/22 with AMS. Hx provided [...] Nutrient Needs: Energy (kcal): 20- 25 or 6441-5949 Weight Used for Energy Requirements: Current Protein (g): Weight Used for Protein Requirements: Amado Fluid (ml/day): Method Used for Fluid Requirements: [...] Oral Nutrition Supplement Coco Kaufman RD Contact: *[phone] [facility] 01-24-2022 Note Hospitalist Discharg e Summary James [...] is pending. [facility] Consults: IP CONSULT [...] Complexity: follow up within 7-14 calendar days (34058) [x] Severe Complexity: follow up within 7 calendar days (30471) Follow up Testing, Pending results or Referrals [...] DO Division of Hospitalist Medicine [place] Medical [place] [place]/24/2022, 1:42 PM Discharge Summary James Jones [...] 25 MG ta (more content not included)... [facility] 01-24-2022 Note [facility]. Return to facility referral placed via [facility]. SW to follow for any skilled needs vs LTC return to facility. Return to facility placed via [facility]port . Minda Marcano LCSW [facility] 01-24-2022 Note PROGRESS NOTE. [facility] Patient Name:James Jones Patient : 1945 Acct: [id number] Date of Admission: 01/21/2022 Room/Bed: B1147/[facility] [place] [facility] PCP: Stephanie Whitlock Patient location Telemetry [...] DIOXIDE 24 22 (more content not included)... [facility] 01-23-2022 Note [facility] Respiratory Care Department Progress Note As part [...] Respiratory in the care of this patient, [facility] 01-23-2022 Note Hospitalist Progress Note 01/23/2022 [phone]: Please page me ([phone]) for patient care issues. [phone]: Please page [facility] night Hospitalist for any issues. Subjective: Admit Date: 01/21/2022 PCP: Stephanie Whitlock Room#: B1-147/B1-147 B Interval History: pt is much more with it today than when I saw him on Sunday, I did speak to his daughter dilia and she states he is not at his baseline yet I updated her on the the new cva etc. Adult diet Regular @[id number]@ 24HR INTAKE/OUTPUT: Intake/Output Summary (Last 24 hours) [...] DO Division of Hospitalist Medicine Inpatient Medical Services[place] PAGER: [phone] [facility] documented in this encounter [facility] Work Phone: Evaluation note* Diagnosis Chronic heart failure with preserved ejection fraction (CMS/HCC) (HCC)- Primary Essential (primary) hypertension Unspecified essential hypertension [facility] instructions* Attachments The following attachments cannot be sent through Care Everywhere. * HTN (Hypertension): Diuretics: General Info (Swedish) * Kidney Disease: High Blood Pressure (Swedish) [facility] Phone: Discharge Instructions * Discharge Instr - Lab* Olivia Reyes RN - 10/17/2019 12:40 PM EDT Your physician has ordered skilled home care services for you. Your home care will be provided by: [facility] [phone] * Discharge Instr - MONA* Brandyn Craft, PROFESSIONAL SYSTEM ADMINISTRATOR - 10/22/2019 11:09 AM EDT Continuity of [...] Discharging Nurse: JOSH Castillo Discharging Hospital Unit/Room#: [phone] Discharging Unit Emergency Contact: Extended Emergency Contact Information Primary Emergency Contact: Dilia Jones [place] Relation: Child Past Surgical History: Past Surgical [...] Independent Dressing Independent Toileting Independent Feeding Independent Card Painter Assisted Med Delivery whole Wound Care Documentation [...] - No ventilator support Rehab Therapies: {THERAPEUTIC INTERVENTION:7588282476} Weight Bearing Status/Restrictions: No weight bearing restirctions Other Medical Equipment (for information only, NOT a DME order): cane Other Treatments: Patient's personal belongings (please select all that are sent with patient): Kitty RN SIGNATURE: CASE MANAGEMENT/SOCIAL WORK SECTION Inpatient Status Date: Readmission Risk Assessment Score: Readmission Risk Risk of Unplanned Readmission: 13 Discharging to Facility/ Agency Name: [facility] Address: [address] [place] [address] [facility] (if applicable) Name: Address: Dialysis Schedule: Phone: Fax: [employer]oples[employer] Programmer/[employer]ical Goods Worker signature: PHYSICIAN SECTION Prognosis: Good Condition at [...] Assisted Dressing Assisted Toileting Assisted Feeding Independent Card Painter Assisted Med Delivery whole Wound Care Documentation [...] Diet: Cardiac Routes of Feeding: None Liquids: {Field Contact Person liquid thickness:98136} Daily Fluid Restriction: no Last Modified Barium Swallow with Video (Video Swallowing Test): {Done Not Done Date:} Treatments at the Time of Hospital Discharge: Respiratory Treatments: Oxygen Therapy: is not on home oxygen therapy. Ventilator: - No ventilator support Rehab Therapies: {THERAPEUTIC INTERVENTION:8194393950} Weight Bearing Status/Restrictions: No weight bearing restirctions Other Medical Equipment (for information only, NOT a DME order): {EQUIPMENT:[id number]} Other Treatments: Patient's personal belongings (please select all that are sent with patient): None RN SIGNATURE: CASE MANAGEMENT/SOCIAL WORK SECTION Inpatient Status Date: Readmission Risk Assessment Score: Readmission Risk Risk of Unplanned Readmission: 14 Discharging to Facility/ Agency Name: [facility] Address: [address] [place] [address] [facility] (if applicable) Name: Address: Dialysis Schedule: Phone: Fax: [employer] Programmer/[employer]ical Goods Worker signature: PHYSICIAN SECTION Prognosis: Good Condition at [...] encounter History of Present Illness * SamantaSarina, STOCK BUYER - 10/21/2019 12:05 PM EDT Physical Therapy Facility/Department: [facility] Daily Treatment Note NAME: James Jones [...] of his Ensure HP to BID from [employer] who was assisting ptwith meal selection. Yesterday, [...] tablet 10 mg 10 mg Oral Daily Sarahblaine SommerGREG higuera - [place] [employer] 10 mg at spironolactone (ALDACTONE) tablet 25 mg 25 mg Oral Daily GREG Patel [place] [employer] 25 mg at 10/20/19 08 torsemide (DEMADEX) [...] 500 mg 500 mg Oral Q6H PRN Shraavn Solorio MD Or acetaminophen (TYLENOL) tablet 1,000 [...] to care for self). Plan: Consults: social psychologist and physical therapy. Regular diet. (D/c planning). [...] deltoids) Fluid Accumulation: No significant fluid accumulation Modern Languages Professor Strength: Not Performed Estimated Daily Nutrient Needs: Energy (kcal): 0040-3636; Weight Used for Energy Requirements: Amado Protein (g): 43-54; Weight Used for Protein Requirements: Amado(.8-1.0) Fluid (ml/day): 1350ml/day or per MD; Weight Used for Fluid Requirements: Amado Nutrition Related Findings: no edema; Previously reported [...] Usual Body Weight: 135 lb (61.2 kg)(135-140#) Amado Body Weight: 118 lbs; % Amado Body Weight 102.5 % BMI: 22.1 Adjusted [...] mg Oral Daily Sarah George APRN - [place] [employer] 10 mg at spironolactone (ALDACTONE) tablet 25 mg 25 mg Oral Daily Fariba Francisco APRN - [place] [employer] 25 mg at 10/19/19 0808 torsemide (DEMADEX) tablet 20 mg 20 mg Oral Daily Mari Tirado APRN - [place] [employer] 20 mg at 10/19/19 0808 doxazosin (CARDURA) tablet 4 mg 4 mg Oral Nightly Shravan Solorio MD 4 mg at 10/19/192152 carvedilol (COREG) tablet 25 mg 25 mg Oral BID Mari Tirado APRN - [place] [employer] 25 mg at 10/19/19 1724 potassium chloride [...] 10/19/2019 12:18 PM EDT Physical Therapy Facility/Department: [facility] Daily Treatment Note NAME: James Jones [...] mg Oral Daily Sarah George APRN - [place] [employer] 10 mg at spironolactone (ALDACTONE) tablet 25 mg 25 mg Oral Daily Fariba Francisco APRN - [place] 25 mg at 10/19/19 08 torsemide (DEMADEX) tablet 20 mg 20 mg Oral Daily GREG Madrid CNP 20 mg at 10/19/19807 doxazosin (CARDURA) tablet 4 mg 4 mg Oral Nightly Shravan Solorio MD 4 mg at 10/18/192051 carvedilol (COREG) tablet 25 mg 25 mg Oral BID GREG Madrid [employer] [employer] 25 mg at 10/19/19806 potassium chloride (KLOR-CON [...] weight 121 lb 12.8 oz (55.2 kg), [id number] %. Vital signs are normal. Output: Producing urine. HEENT: Normal HEENT exam. Lungs: Normal effort and normal respiratory rate. Breath sounds clear to auscultation. Heart: Normal rate. Regular rhythm. S1 normal. Abdomen: Abdomen is soft. Bowel sounds are normal. There is no abdominal tenderness. Assessment: (Generalized debility Dyspnea HFpEF HTN). Plan: Consults: physical therapy, occupational therapy and social psychologist. Regular diet. (Has decided onplacement, ...). SHRAVAN SOLORIO MD 10/19/2019 * Lisa Coates OTA - 10/18/2019 3:27 PM EDT Occupational Therapy Facility/Department: [facility] Daily Treatment Note NAME: James Jones [...] weight 121 lb 12.8 oz (55.2 kg), [id number] %. (Elevated BP). HEENT: Normal HEENT exam. [...] SHRAVAN SOLORIO MD 10/18/2019 * Sarah George, REAL ESTATE SERVICES ADMINISTRATOR - [place] [employer] - 10/18/2019 6:12 AM EDT CARDIOLOGY PROGRESS [...] is a 74 yo male admitted to [facility] with SOB and chest heaviness, new onset of CHF. STOCK BUYER,pt was indep with all functional tasks. Pt [...] 10/17/2019 2:33 PM EDT Physical Therapy Facility/Department: [facility] Initial Assessment NAME: James Jones : [...] 3-5 steps with a railing?: Total(not assessed) [facility] Inpatient Mobility Raw Score : 12 [facility] Inpatient T-Scale Score : 35.33 Mobility Inpatient CMS 0-100% Score: 68.66 Mobility Inpatient CMS G-Code Modifier : CL AM-PAC Score [facility] Inpatient Mobility Raw Score : 12 (10/17/191415) [facility] Inpatient T-Scale Score : 35.33 (10/17/191415) [...] Minutes 15 Evette Han PT, DPT * Mleyssa Balderrama RN - 10/17/2019 11:47 AM EDT [...] +appetite at this time. 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 pt reports [...] Usual Body Weight: 135 lb (61.2 kg)(135-140#) Amado Body Weight: 118 lbs; % Amado Body Weight 102.5 % BMI: 22.1 BMI [...] current diet Contact: 3163 * Fariba Francisco, REAL ESTATE SERVICES ADMINISTRATOR - [employer] [employer] - 10/17/2019 10:13 AM EDT CARDIOLOGY PROGRESS [...] 4 mg 4 mg Oral Nightly Shravan Soloroi MD 4 mg at 10/16/192022 carvedilol (COREG) [...] SHRAVAN SOLORIO MD 10/17/2019 * Mari Tirado, REAL ESTATE SERVICES ADMINISTRATOR - [employer] - 10/16/2019 10:22 AM EDT CARDIOLOGY PROGRESS [...] distress. Breath sounds: Normal breath sounds. Comments: DELIVERY REP Abdominal: General: Bowel sounds are normal. There [...] Hypertensive urgency). Plan: Encourage ambulation. Consults: social psychologist and cardiology. Regular diet. SHRAVAN SOLORIO MD [...] pt was just discharged recently from [facility] and went to [facility]. Pt states that he intends on going back to [place] since all of his belongings are still [...] deltoids) Fluid Accumulation: No significant fluid accumulation Modern Languages Professor Strength: Not Performed Estimated Daily Nutrient Needs: Energy (kcal): 9994-0763 kcals; Weight Used for Energy Requirements: Admission(56kg) [...] Usual Body Weight: 145 lb (65.8 kg)(03/08/19) Amado Body Weight: 118 lbs; % Amado Body Weight BMI: 22.5 Adjusted Body Weight: [...] current diet, Continue Oral Nutrition Supplement Contact: [phone] * Edyta Hunt MD - 10/24/2019 9:47 [...] FoundDocuments on File Type Date Recorded Patient Mortar Carrier Expl anation Advance Directives and Living Will Power of Dial Buffer Latest Code Status on File Code Status [...] DATE CREATED AUTHOR AUTHOR'S JENIFER SAHA 11/10/2022 [facility] Care Teams (unrecognized sec tion and [...] BE BASED ON THE PRIMARY CLINICAL RECORDS. [employer] [facility]. provides no warranty or guarantee of the accuracy or completeness of information in this document.
[2023-04-13 09:23] LABS: Hematocrit 30.3 % (40-54); Hemoglobin 9.7 g/dL (13.0-16.5); Mean Corpuscular Hgb 31.7 pg (27.0-32.0); Mean Platelet Vol. 11.2 fl (6.2-12.0); Platelet Count 155 K/mm3 (150-450); RBC Distribution Width CV 13.2 % (11.6-14.6); RBC Distribution Width SD 46.9 fl (35.1-43.9); Red Blood Count 3.06 M/mm3 (4.6-6.2); White Blood Count 5.1 K/mm3 (4.4-11.0)
[2023-04-13 09:32] LABS: Anion Gap 3 (5-15); BUN 37 mg/dL (7-18); BUN/Creat Ratio 27.2 RATIO (10-20); Calcium,Total 9.2 mg/dL (8.5-10.1); Chloride 108 mmol/L (98-107); Creatinine, Serum 1.36 mg/dL (0.70-1.30); EST Glomerular Filtration Rate 54 mL/min (>60); Est Glom Filt Rate - Afr Amer 65 mL/min (>60); Glucose 85 mg/dL (74-106); Sodium Level 141 mmol/L (136-145)
== END ==
LOC: OLS.SANC 05:00
PROVIDERS: Visit Provider Internal Medicine
DX: Z79.899 Other long term (current) drug therapy (principal)
CPT/HCPCS: 36415; 80048; 85027

== ENCOUNTER → 2023-05-14 | Outpatient (REF) | payer MEDICARE, MEDICAID, SELFPAY ==
[2023-05-14 10:11] LABS: Hematocrit 31.2 % (40-54); Hemoglobin 9.8 g/dL (13.0-16.5); Mean Corp Hgb Conc 31.4 g/dL (32-36); Mean Corpuscular Volume 98.7 fL (80-94); Mean Platelet Vol. 11.5 fl (6.2-12.0); Platelet Count 128 K/mm3 (150-450); RBC Distribution Width CV 13.3 % (11.6-14.6); Red Blood Count 3.16 M/mm3 (4.6-6.2); White Blood Count 4.9 K/mm3 (4.4-11.0)
[2023-05-14 10:27] LABS: Anion Gap 2 (5-15); BUN 36 mg/dL (7-18); BUN/Creat Ratio 26.9 RATIO (10-20); Calcium,Total 9.3 mg/dL (8.5-10.1); Chloride 109 mmol/L (98-107); Creatinine, Serum 1.34 mg/dL (0.70-1.30); EST Glomerular Filtration Rate 55 mL/min (>60); Est Glom Filt Rate - Afr Amer 66 mL/min (>60); Glucose 78 mg/dL (74-106); Potassium 3.8 mmol/L (3.5-5.1); Sodium Level 141 mmol/L (136-145)
== END ==
LOC: OLS.SANC 04:00
PROVIDERS: Referring Provider Internal Medicine; Visit Provider Internal Medicine
DX: D64.9 Anemia, unspecified (principal); I11.0 Hypertensive heart disease with heart failure; I50.9 Heart failure, unspecified; E78.5 Hyperlipidemia, unspecified
CPT/HCPCS: 36415; 80048; 85027

== ENCOUNTER → 2023-06-13 | Outpatient (REF) | payer MEDICARE, MEDICAID, SELFPAY ==
[2023-06-13 07:58] LABS: Hematocrit 31.5 % (40-54); Hemoglobin 10.1 g/dL (13.0-16.5); Mean Corp Hgb Conc 32.1 g/dL (32-36); Mean Corpuscular Hgb 31.3 pg (27.0-32.0); Mean Corpuscular Volume 97.5 fL (80-94); Mean Platelet Vol. 11.1 fl (6.2-12.0); Platelet Count 144 K/mm3 (150-450); RBC Distribution Width CV 13.5 % (11.6-14.6); RBC Distribution Width SD 47.8 fl (35.1-43.9); Red Blood Count 3.23 M/mm3 (4.6-6.2); White Blood Count 4.5 K/mm3 (4.4-11.0)
[2023-06-13 08:02] LABS: Valproic Acid (Depakene) Level 19 ug/mL (50-100)
[2023-06-13 08:16] LABS: ALB/GLOB Ratio 0.8 RATIO (0.9-2.4); AST(SGOT) 18 U/L (15-37); Alanine Aminotransfer ALT/SGPT 12 U/L (16-61); Albumin, Serum 3.1 g/dL (3.2-5.0); Alkaline Phosphatase 48 U/L (45-117); Anion Gap 6 (5-15); BUN 45 mg/dL (7-18); BUN/Creat Ratio 30.6 RATIO (10-20); Calcium,Total 9.2 mg/dL (8.5-10.1); Chloride 106 mmol/L (98-107); Cholesterol 98 mg/dL (200); Creatinine, Serum 1.47 mg/dL (0.70-1.30); EST Glomerular Filtration Rate 49 mL/min (>60); Est Glom Filt Rate - Afr Amer 60 mL/min (>60); Glucose 75 mg/dL (74-106); High Density Lipoprotein 39 mg/dL; Potassium 3.9 mmol/L (3.5-5.1); Protein, Total 7.1 g/dL (6.4-8.2); Sodium Level 141 mmol/L (136-145); Triglycerides 59 mg/dL; Very Low Density Lipoprotein 12 mg/dL (5-40)
== END ==
LOC: OLS.SANC 05:00
PROVIDERS: Visit Provider Internal Medicine
DX: D64.9 Anemia, unspecified (principal); I50.9 Heart failure, unspecified; F03.90 Unspecified dementia, unspecified severity, without behavioral disturbance, psychotic disturbance, mood disturbance, and anxiety; Z79.899 Other long term (current) drug therapy
CPT/HCPCS: 36415; 80053; 80061; 80164; 85027

== ENCOUNTER → 2023-06-25 | Outpatient (REF) | payer MEDICARE, MEDICAID, SELFPAY ==
[2023-06-25 09:19] LABS: Hematocrit 31.3 % (40-54); Hemoglobin 10.1 g/dL (13.0-16.5); Mean Corp Hgb Conc 32.3 g/dL (32-36); Mean Corpuscular Hgb 31.5 pg (27.0-32.0); Mean Corpuscular Volume 97.5 fL (80-94); Mean Platelet Vol. 11.1 fl (6.2-12.0); Platelet Count 149 K/mm3 (150-450); RBC Distribution Width CV 13.5 % (11.6-14.6); Red Blood Count 3.21 M/mm3 (4.6-6.2); White Blood Count 5.4 K/mm3 (4.4-11.0)
[2023-06-25 09:35] LABS: Anion Gap 7 (5-15); BUN 33 mg/dL (7-18); BUN/Creat Ratio 23.1 RATIO (10-20); Calcium,Total 8.9 mg/dL (8.5-10.1); Chloride 105 mmol/L (98-107); Creatinine, Serum 1.43 mg/dL (0.70-1.30); EST Glomerular Filtration Rate 51 mL/min (>60); Est Glom Filt Rate - Afr Amer 62 mL/min (>60); Glucose 76 mg/dL (74-106); Sodium Level 140 mmol/L (136-145)
== END ==
LOC: OLS.SANC 05:00
PROVIDERS: Visit Provider Internal Medicine
DX: D64.9 Anemia, unspecified (principal); I10 Essential (primary) hypertension; E78.5 Hyperlipidemia, unspecified
CPT/HCPCS: 36415; 80048; 85027

== ENCOUNTER → 2023-07-13 | Outpatient (REF) | payer MEDICARE, MEDICAID, SELFPAY ==
[2023-07-13 08:12] LABS: Hematocrit 31.3 % (40-54); Hemoglobin 10.1 g/dL (13.0-16.5); Mean Corp Hgb Conc 32.3 g/dL (32-36); Mean Corpuscular Hgb 31.6 pg (27.0-32.0); Mean Corpuscular Volume 97.8 fL (80-94); Mean Platelet Vol. 11.3 fl (6.2-12.0); Platelet Count 121 K/mm3 (150-450); RBC Distribution Width CV 14.4 % (11.6-14.6); RBC Distribution Width SD 51.7 fl (35.1-43.9)
[2023-07-13 08:32] LABS: Anion Gap 6 (5-15); BUN 31 mg/dL (7-18); BUN/Creat Ratio 23.3 RATIO (10-20); Calcium,Total 8.9 mg/dL (8.5-10.1); Chloride 106 mmol/L (98-107); Creatinine, Serum 1.33 mg/dL (0.70-1.30); EST Glomerular Filtration Rate 55 mL/min (>60); Est Glom Filt Rate - Afr Amer 67 mL/min (>60); Glucose 83 mg/dL (74-106); Sodium Level 141 mmol/L (136-145)
[2023-07-13 08:39] LABS: Valproic Acid (Depakene) Level 23 ug/mL (50-100)
== END ==
LOC: OLS.SANC 05:00
PROVIDERS: Visit Provider Internal Medicine
DX: D64.9 Anemia, unspecified (principal); I10 Essential (primary) hypertension; E78.5 Hyperlipidemia, unspecified; Z79.899 Other long term (current) drug therapy
CPT/HCPCS: 36415; 80048; 80164; 85027

== ENCOUNTER → 2023-07-27 05:00 | Outpatient (REF) | payer MEDICARE, MEDICAID, SELFPAY ==
[2023-07-27 07:52] LABS: Valproic Acid (Depakene) Level 14 ug/mL (50-100)
== END ==
LOC: OLS.SANC 05:00
PROVIDERS: Visit Provider Internal Medicine
DX: Z79.899 Other long term (current) drug therapy (principal)
CPT/HCPCS: 36415; 80164

== ENCOUNTER → 2023-07-30 | Outpatient (REF) | payer MEDICARE, MEDICAID, SELFPAY ==
[2023-07-30 08:58] LABS: Hematocrit 31.6 % (40-54); Hemoglobin 10.2 g/dL (13.0-16.5); Mean Corp Hgb Conc 32.3 g/dL (32-36); Mean Corpuscular Hgb 31.8 pg (27.0-32.0); Mean Corpuscular Volume 98.4 fL (80-94); Mean Platelet Vol. 11.1 fl (6.2-12.0); Platelet Count 142 K/mm3 (150-450); RBC Distribution Width CV 14.5 % (11.6-14.6); RBC Distribution Width SD 52.2 fl (35.1-43.9); Red Blood Count 3.21 M/mm3 (4.6-6.2); White Blood Count 4.3 K/mm3 (4.4-11.0)
[2023-07-30 10:09] LABS: Valproic Acid (Depakene) Level 24 ug/mL (50-100)
== END ==
LOC: OLS.SANC 05:00
PROVIDERS: Visit Provider Internal Medicine
DX: I11.0 Hypertensive heart disease with heart failure (principal); I50.9 Heart failure, unspecified; E78.5 Hyperlipidemia, unspecified; D64.9 Anemia, unspecified
CPT/HCPCS: 36415; 80164; 85027

== ENCOUNTER → 2023-08-06 | Outpatient (REF) | payer MEDICARE, MEDICAID, SELFPAY ==
[2023-08-06 09:34] LABS: Anion Gap 4 (5-15); BUN 32 mg/dL (7-18); BUN/Creat Ratio 23.7 RATIO (10-20); Calcium,Total 9.1 mg/dL (8.5-10.1); Chloride 106 mmol/L (98-107); Creatinine, Serum 1.35 mg/dL (0.70-1.30); EST Glomerular Filtration Rate 54 mL/min (>60); Est Glom Filt Rate - Afr Amer 66 mL/min (>60); Glucose 82 mg/dL (74-106); Potassium 3.9 mmol/L (3.5-5.1); Sodium Level 140 mmol/L (136-145)
== END ==
LOC: OLS.SANC 05:00
PROVIDERS: Visit Provider Internal Medicine
DX: I10 Essential (primary) hypertension (principal); D64.9 Anemia, unspecified
CPT/HCPCS: 36415; 80048

== ENCOUNTER → 2023-08-07 | Outpatient (REF) | payer MEDICARE, MEDICAID, SELFPAY ==
[2023-08-07 09:36] LABS: Hematocrit 30.1 % (40-54); Hemoglobin 9.7 g/dL (13.0-16.5); Mean Corp Hgb Conc 32.2 g/dL (32-36); Mean Corpuscular Hgb 31.9 pg (27.0-32.0); Mean Platelet Vol. 10.9 fl (6.2-12.0); Platelet Count 129 K/mm3 (150-450); RBC Distribution Width CV 14.7 % (11.6-14.6); RBC Distribution Width SD 52.8 fl (35.1-43.9); Red Blood Count 3.04 M/mm3 (4.6-6.2); White Blood Count 5.1 K/mm3 (4.4-11.0)
== END ==
LOC: OLS.SANC 07:30
PROVIDERS: Visit Provider Internal Medicine
DX: I10 Essential (primary) hypertension (principal); D64.9 Anemia, unspecified
CPT/HCPCS: 85027

== ENCOUNTER → 2023-08-13 | Outpatient (REF) | payer MEDICARE, MEDICAID, SELFPAY ==
[2023-08-13 10:23] LABS: Hematocrit 30.8 % (40-54); Hemoglobin 9.9 g/dL (13.0-16.5); Mean Corp Hgb Conc 32.1 g/dL (32-36); Mean Corpuscular Hgb 31.9 pg (27.0-32.0); Mean Corpuscular Volume 99.4 fL (80-94); Mean Platelet Vol. 10.8 fl (6.2-12.0); Platelet Count 135 K/mm3 (150-450); RBC Distribution Width CV 14.6 % (11.6-14.6); RBC Distribution Width SD 52.6 fl (35.1-43.9); White Blood Count 4.7 K/mm3 (4.4-11.0)
[2023-08-13 10:40] LABS: Anion Gap 3 (5-15); BUN 32 mg/dL (7-18); BUN/Creat Ratio 23.4 RATIO (10-20); Calcium,Total 9.3 mg/dL (8.5-10.1); Chloride 103 mmol/L (98-107); Creatinine, Serum 1.37 mg/dL (0.70-1.30); EST Glomerular Filtration Rate 53 mL/min (>60); Est Glom Filt Rate - Afr Amer 65 mL/min (>60); Glucose 123 mg/dL (74-106); Potassium 3.6 mmol/L (3.5-5.1); Sodium Level 139 mmol/L (136-145)
== END ==
LOC: OLS.SANC 05:00
PROVIDERS: Visit Provider Internal Medicine
DX: I11.0 Hypertensive heart disease with heart failure (principal); I50.9 Heart failure, unspecified; D64.9 Anemia, unspecified; E78.5 Hyperlipidemia, unspecified
CPT/HCPCS: 36415; 80048; 85027